=== PATIENT | female | born 1950 | race Caucasian/White ===

== ENCOUNTER 2017-06-13 12:58 | Inpatient (IN) | payer OTHER ==
[2017-06-13] MEDS: niCARdipine/NACL 200 ML IV SCH ×4 (15:00→22:36)
[2017-06-13] MEDS ORDERED: [UNRECOGNIZED DRUG - OTHER] TUBE SCH (15:00)
[2017-06-13] MEDS: NS 1,000 ML IV SCH (15:00)
[2017-06-13] MEDS ORDERED: ACETAMINOPHEN 160 MG/5 ML UDCUP PO PRN (16:06)
[2017-06-13] MEDS ORDERED: PROTOCOL MAGNESIUM 1 DOSE IV PRN (16:33)
[2017-06-13] MEDS ORDERED: PROTOCOL POTASSIUM 1 DOSE MISC PRN (16:33)
--- NOTE | 2017-06-13 17:09 | GHP ---
[f rep st] HISTORY AND PHYSICAL DATE OF ADMISSION: 06/13/2017 HISTORY OF PRESENT ILLNESS: The patient is a 67-year-old female, who woke up yesterday morning with a severe headache which did not resolve throughout the day. She presented to the [facility] [place] [facility] last night with continued complaint of headache as well as vital signs with maikel re hypertension with blood pressures of 222/112 measured. She was neurologically intact at the time, and head CT in the ED revealed a 2 mm anterior communicating artery aneurysm, which is thought to palacios ve caused basilar subarachnoid hemorrhage. 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 She was admitted to the neurosurgery t ea at [facility] where she endured the night. Over the evening, her exam declined somewhat. S he remains alert, but she is nominally verbal, only answering small questions and not able to provide a complete H and P. She was transferred to the [facility] for anticipated treatment of her aneurysm by Dr. Curry tomorrow. Additional information is provided by patient's chart review as patient is unable to fully communicate her history of present illness. PAST MEDICAL HISTORY: Includes history of hypothyroidism. PAST SURGICAL HISTORY: Includes history of hysterectomy. FAMILY HISTORY: Includes breast cancer in the mother. SOCIAL HISTORY: Patient is an everyday smoker, and she occasionally drinks alcohol. She has no [address] of illicit drug use. REVIEW OF SYSTEMS: Patient is minimally verbal and unable to elaborate on her current condition. Sh e is not complaining of headache or pain at the current time. ALLERGIES: She has no known drug allergies. MEDICATIONS: Include amitriptyline 50 mg and Synthroid 100 mcg daily. NEUROLOGICAL EXAM: Patient is alert and oriented to self and place. Her speech is minimal but clear , consisting of 1-5 word phrases. Her pupils are equal and reactive to light. Her extraocular movem ents appear intact. Her palate rise is symmetric. Her smile is symmetric. She has no apparent faci al droop. Her cranial nerves 2-12 appear grossly intact. She moves all extremities x4. She does no t have any apparent pronator drift, and her strength appears full and equal, right to left. Her sens ation is intact to light touch, and she continues to follow commands. Overall, her GCS is currently 15. 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 On CT, she also has enlarged ventricl es indicative of a question of hydrocephalus, but she does not appear symptomatic from that at this t clay. She is currently alert and oriented to place. She does have some mild confusion and does not s peak clearly, but her exam has remained stable throughout the day. We have transferred her from [facility] the [facility] to the extended care unit with q.1 hour neuro checks, strict blood pressure control of less than 130. Nicardipine has been ordered. She is also taking Nimotop for vasospasms 60 mg every 4 hours. She has Keppra on board. She is currently n.p.o. with fluids running. We will plan for Dr. Curry to clip the aneurysm tomorrow in the a.m. The patient was discussed with Dr. Chris Hamlin, Dr. Curry, as well as Jessie Bautista upon transfer. Please contact us with any ogden iona in neurological exam. /[id number]/MODL
[2017-06-13] MEDS: niMODipine 30 MG CAP PO SCH ×2 (18:17→22:25)
[2017-06-13] MEDS: POTASSIUM Cl (KCl) 10 MEQ in NS 100 ML IV SCH ×3 (20:08→21:46)
[2017-06-13] MEDS: levETIRAcetam 750 MG in NS (SYRINGE) 50 ML IV SCH (21:09)
[2017-06-13] MEDS: SENNOSIDES/DOCUSATE SODIUM TAB PO SCH (22:30)
[2017-06-14] MEDS: niCARdipine/NACL 200 ML IV SCH ×4 (01:26→14:00)
[2017-06-14] MEDS: niMODipine 30 MG CAP PO SCH ×6 (01:27→22:10)
[2017-06-14] MEDS ORDERED: POTASSIUM Cl (KCl) 50 ML IV ONE ×2 (01:45→20:49)
[2017-06-14] MEDS ORDERED: POTASSIUM Cl (KCl) 100 ML IV ONE (02:45)
--- NOTE | 2017-06-14 06:44 | PDANEPAE ---
ANE History of Present Illness h/o SAH ANE Past Medical History - Cardiovascular History Hx Hypertension: No Hx Arrhythmias: No Hx Chest Pain: No Hx Coronary Artery / Peripheral Vascular Disease: No Hx CHF / Valvular Disease: No Hx Palpitations: No - Pulmonary History Hx COPD: No Hx Asthma/Reactive Airway Disease: No Hx Recent Upper Respiratory Infection: No Hx Oxygen in Use at Home: No Hx Sleep Apnea: No - Endocrine History Hx Diabetes: No Hypothyroid: Yes - Neurological & Psychiatric Hx Hx Neurological and Psychiatric Disorders: Yes - Chronic Pain History Chronic Pain: No ANE Review of Systems Review of systems is: negative Review of Systems: - Exercise capacity Exercise capacity: >=4 METS ANE Patient History - Allergies Allergies/Adverse Reactions: No Allergies [NKDA] Allergy (Verified 06/13/17 13:35) - Home Medications Home medications: home medication list seen and reviewed Home Medications: Amitriptyline HCl [Elavil 100 MG (*)] 100 mg PO HS 06/13/17 [Last Taken Unknown] Hydrocodone/APAP 5/325 [[place] 5/325 (*)] 1 each PO Q4HRS PRN 06/13/17 [Last Taken Unknown] Levothyroxine [Synthroid 112 mcg (*)] 112 mcg PO DAILY06 06/13/17 [Last Taken Unknown] - Anes Hx Anes Hx: no prior problems - Smoking Hx Smoking Status: Current every day smoker ANE Labs/Vital Signs - Labs Result Diagrams: 06/14/17 05:30 - Vital Signs Blood Pressure: 116/56 Heart Rate: 78 Respiratory Rate: 22 O2 Sat (%): 90 Height: 167.64 cm Weight: 50.802 kg ANE Physical Exam - Airway Neck exam: FROM Mallampati Score: Class 1 Mouth exam: normal dental/mouth exam - Pulmonary Pulmonary: no respiratory distress - Cardiovascular Cardiovascular: regular rate and rhythym - ASA Status ASA Status: III ANE Anesthesia Plan Anesthesia Plan: general endotracheal anesthesia Lines/Monitors: arterial line
[2017-06-14] MEDS ORDERED: LIDOCAINE 2% 100 MG/5 ML SYR ONE (07:15)
[2017-06-14] MEDS ORDERED: PROPOFOL 200 MG/20 ML VIAL ONE (07:16)
[2017-06-14] MEDS ORDERED: fentaNYL 250 MCG/5 ML INJ ONE (07:16)
[2017-06-14] MEDS ORDERED: ROCURONIUM 50 MG/5 ML VIAL ONE (07:18)
--- NOTE | 2017-06-14 07:19 | SOAPPROG ---
SAQIB Progress Note Assessment/Plan: Assessment: Post Bleed Day 2 s/p rupture of presumed Acomm aneurysm, HH2, F3 Plan: - to IR today for cerebral angiogram and coil embolization - I spoke to the family extensively about the procedure and the risks and benefits, including the risks of femoral artery injury, dissection, stroke, intra-operative aneurysm rupture, and . They agree to proceed. - Keppra 750 BID - Nimodipine 60mg q4h - SBP <130 for now, will liberalize after treatment - TCDs -- - will monitor for hydrocephalus. Ventricles are large, although she only has a mild headache this morning. Her family says she has had some cognitive and memory issues for the past year. 06/14/17 07:15 Subjective: no new events, c/o mild headache only Objective: Vital Signs Temp Pulse Resp BP Pulse Ox 37.5 C 78 22 H 116/56 L 90 L 06/13/17 16:00 06/14/17 06:44 06/14/17 06:44 06/14/17 06:44 06/14/17 06:44 Laboratory Results 06/14/17 05:30 06/13/17 06/14/17 06/15/17 05:59 05:59 05:59 Intake Total 526 Output Total 750 Balance -224 AAOx3, PERRL, EOMI, face symmetric full strength, no drift, sensation intact - Pending Discharge Pending Discharge Within 24 Hours: No Pending Discharge Within 48 Hours: No ICD10 Worksheet Patient Problems: Problems Problem Status Onset Subarachnoid hemorrhage Acute - ICD10 Problem Qualifiers (1) Subarachnoid hemorrhage
[2017-06-14] MEDS ORDERED: LIDOCAINE 2% 5 ML SDV ONE (07:28)
[2017-06-14] MEDS ORDERED: IOPAMIDOL (ISOVUE-300) 100 ML BTL ONE (08:12)
[2017-06-14] MEDS ORDERED: DEXAMETHASONE 4 MG/ML VIAL ONE (08:24)
--- NOTE | 2017-06-14 08:57 | POSTANESTH ---
Post Anesthetic Evaluation Cardiovascular Status: Normal, Stable Respiratory Status: Normal, Stable Level of Consciousness/Mental Status: Can Participate in Eval Pain Control: Adequate, Prn Tx Ordered Nausea/Vomiting Control: Adequate, Prn Tx Ordered Complications Possibly Related to Anesthesia: None Noted
--- NOTE | 2017-06-14 09:36 | PDMN ---
Medical Necessity Medical necessity: Patient meets inpatient criteria per PA/physician notes and [facility] Stroke: Hemorrhagic vs Neurosurgery or Procedure GRG (s/p rupture of anterior communicating aneurysm resulting in basilar SAH, also proximal R ICA aneurysm; transferred from [facility] for cerebral angiogram and coil embolization of same; anticipated LOS > 2 midnights for care and treatment of hypertension/ nicardipine IV gtt and hourly neuro checks, clipping of aneurysm.)
[2017-06-14] MEDS ORDERED: HYDROCODONE/APAP 5/325 TAB PO PRN (09:37)
[2017-06-14] MEDS ORDERED: ACETAMINOPHEN 500 MG TAB PO PRN (09:37)
[2017-06-14] MEDS ORDERED: PROMETHAZINE HCL 25 MG/ML INJ IVP PRN (09:37)
[2017-06-14] MEDS ORDERED: oxyCODONE IR 5 MG TAB PO PRN (09:37)
[2017-06-14] MEDS ORDERED: ONDANSETRON 4 MG/2 ML VIAL IVP PRN (09:37)
[2017-06-14] MEDS ORDERED: HYDROmorphONE/DILAUDID 1 MG/ML INJ IVP PRN (09:37)
[2017-06-14] MEDS ORDERED: LABETALOL HCL 5 MG/ML 20 ML MDV IVP PRN (09:37)
[2017-06-14] MEDS ORDERED: NALOXONE HCL 0.4 MG/ML INJ IVP PRN (09:37)
[2017-06-14] MEDS ORDERED: fentaNYL 100 MCG/2 ML INJ IVP PRN (09:37)
[2017-06-14] MEDS ORDERED: ALBUTEROL 3 ML DEYVIAL IH PRN (09:37)
[2017-06-14] MEDS ORDERED: NS 500 ML IV PRN (09:37)
--- NOTE | 2017-06-14 10:04 | ASMTCASEMG ---
Living Arrangements What is your living Answers: Alone arrangement? Who do you live with? Type Of Residence What kind of residence do Answers: Homeless you live in? Discharge Plan Comments Coordination Status Comments Notes: Patient is a 67yo female who woke up with a severe headache on the and sought treatment with [facility]. She was transferred to [facility] for anticipated treatment of her aneurysm by Dr. Curry. Patient was admitted for rupture of an anterior communicating artery aneurysm resulting in basilar subarachnoid hemorrhage. Dr Curry to clip the aneurysm today. Patient was unable to communicate when she arrived so living circumstances and marital status not known at this time. OT/PT/COMMISSARY HELPER/Inpatient rehab have been ordered. D/C plan TBD. CM will follow. Date Signed: 06/14/2017 10:04 AM Electronically Signed By:Brittany Wong LCSW
[2017-06-14] MEDS ORDERED: LIDOCAINE 1% 300 MG/30 ML SDV ONE (10:40)
[2017-06-14] MEDS: levETIRAcetam 750 MG in NS (SYRINGE) 50 ML IV SCH ×2 (11:44→22:29)
[2017-06-14] MEDS: SENNOSIDES/DOCUSATE SODIUM TAB PO SCH ×2 (12:24→22:12)
--- NOTE | 2017-06-14 13:47 | GCON ---
[f rep st] CONSULTATION DATE OF CONSULTATION: 06/13/2017 REFERRING PHYSICIAN: Henrik Curry MD PULMONARY/CRITICAL CARE CONSULTATION REASON FOR REFERRAL: Evaluation and management of hypokalemia and blood pressure. HISTORY: The patient is a 67-year-old woman who woke up yesterday with severe headache that did not resolve through the day. She presented to [facility] where she had severe hypertension with a blood pressure of 222/112. A CT scan of the head showed a small communicating artery aneurysm and some basilar subarachnoid hemorrhage. She also had a 3 mm aneurysm in the right internal carotid artery. She was admitted to Neurosurgery, who transferred to [facility] for treatment of her aneurysm by Dr. Curry. The patient is minimally communicative. She currently denies headache. PAST MEDICAL HISTORY: Hypothyroidism. MEDICATIONS: At the time of admission include amitriptyline and Synthroid. She is on nicardipine and Keppra here in the hospital. ALLERGIES: None. SOCIAL HISTORY: The patient is a heavy daily smoker, about a pack and a half a day for many years. S he occasionally drinks alcohol. FAMILY HISTORY: Positive for breast cancer in her mother. REVIEW OF SYSTEMS: Ten point review of systems is unobtainable due to the patient's mental status. PHYSICAL EXAMINATION: GENERAL: The patient is awake and alert but not reliably answering questions. VITAL SIGNS: Her blood pressure is 125/38 with a heart rate of 90. She is afebrile. Oxygen saturation s are 94% on room air. HEENT: Normocephalic and atraumatic. No icterus. NECK: No JVD. Trachea is midl ine. CHEST: Clear to auscultation. CARDIAC: Regular rate and rhythm without murmur. ABDOMEN: Soft, no ntender. Bowel sounds are present. EXTREMITIES: No clubbing, cyanosis, or edema. NEURO: The patient i s oriented to self. She is able to follow some simple commands but does not do so reliably and consis tently. She is able to move all extremities. LABORATORY: A chemistry group shows a potassium of 3.2 with a creatinine of 0.5. Glucose is 112. ASSESSMENT: 1. Subarachnoid hemorrhage. This is apparently due to a small posterior communicating artery aneurys m. The patient is awake and alert but is not at her normal baseline status per her . 2. Hypertension. The patient had severe hypertension upon initial presentation. Her blood pressure i s better now on nicardipine drip that is being titrated p.r.n. 3. Hypokalemia. This is mild. The patient is not having any arrhythmias. RECOMMENDATIONS: 1. Continue nicardipine drip. 2. Replace potassium. 3. Anticipate catheter based approach to the small posterior communicating aneurysm by Dr. Patricio devlin. /[id number]/MODL
[2017-06-14] MEDS: NS 1,000 ML IV SCH (14:02)
--- NOTE | 2017-06-14 14:36 | PDINTPN ---
Synchronizer Progress Note Assessment/Plan: Assessment: SAH: S/P clipping earlier today. On Nimodipine, Keppra HTN: Acutely. Currently BP is in the range set by Dr. Curry Agitation/Delerium: Is pulling at lines. Hypokalemia: Resolved. Plan: D/C A-line. Start Precedex gtt. 06/14/17 14:36 Subjective: Agitated, pulling at lines. Has a headache. Objective: Vital Signs Temp Pulse Resp BP Pulse Ox 36.6 C 90 15 138/63 H 91 L 06/14/17 12:00 06/14/17 14:00 06/14/17 14:00 06/14/17 14:00 06/14/17 14:00 Laboratory Results 06/14/17 11:45 06/13/17 06/14/17 06/15/17 05:59 05:59 05:59 Intake Total 526 Output Total 750 Balance -224 Physical Exam - Physical Exam General Appearance: alert, no apparent distress EENT: normal ENT inspection Neck: normal inspection Respiratory: chest non-tender, lungs clear Cardiac/Chest: normal peripheral pulses, regular rate, rhythm Abdomen: normal bowel sounds, non-tender Skin: normal color, warm/dry Extremities: non-tender Neuro/Psych: alert, normal mood/affect, No oriented x 3, No motor weakness ICD10 Worksheet Patient Problems: Problems Problem Status Onset Subarachnoid hemorrhage Acute
[2017-06-14] MEDS: DEXMEDETOMIDINE HCL 400 MCG in NS 100 ML IV SCH (15:00)
[2017-06-14] MEDS ORDERED: ALTEPLASE 2 MG VIAL IVP ONE (17:45)
[2017-06-14] MEDS: ACETAMINOPHEN 650 MG/20.3 ML UDCUP PO PRN (22:11)
[2017-06-15] MEDS: ACETAMINOPHEN 650 MG/20.3 ML UDCUP PO PRN ×5 (01:49→21:53)
[2017-06-15] MEDS: niMODipine 30 MG CAP PO SCH ×6 (01:49→21:53)
[2017-06-15] MEDS: DEXMEDETOMIDINE HCL 400 MCG in NS 100 ML IV SCH (01:59)
[2017-06-15] MEDS ORDERED: POTASSIUM Cl (KCl) 50 ML IV ONE ×3 (02:02→21:10)
[2017-06-15] MEDS: NS 1,000 ML IV SCH ×2 (05:48→21:14)
--- NOTE | 2017-06-15 06:25 | NEUSURGPN ---
Date of Surgery: 06/14/17 Post Op Day: 1 Assessment/Plan: Assessment: Post Bleed Day 3 s/p rupture of presumed Acomm aneurysm, HH2, F3- POD #1 s/p ACOMM coiling/pt with right ICA aneurysm as well Plan: -to IR 06/14/17 for cerebral angiogram and coil embolization -PT/OT/ST ordered -continue with SBP less than 90-160 -monitor for HCP -CT head done this am that will be reviewed with Dr Curry as no comparison films in [facility] PACS and will have to pull up [facility] PACS to compare-Dr Curry reviewed imaging this am and appears the same-family updated -Keppra 750 BID -Nimodipine 60mg q4h -TCDs -will monitor for hydrocephalus. Ventricles are large, although she only has a mild headache this morning. Her family says she has had some cognitive and memory issues for the past year -call with any questions or concerns -warning signs given -continue with ICU status Subjective: Awake and alert. NAD. No new events overnight. Objective: AAOx3, PERRL, EOMI, face symmetric CN 2-12 grossly intact full strength, no drift, sensation intact Neuro Check Frequency: per routine Urinary Catheter in Place: No - Physician Discussed Patient with : Patricio Patient Seen by : Patricio Neurosurgery Physical Exam - Vitals, I&O, Labs I and O 06/14/17 06/15/17 06/16/17 05:59 05:59 05:59 Intake Total 526 3977.5 Output Total 750 1700 Balance -224 2277.5 Weight 50.802 kg 50.802 kg Intake: Oral (ml) 120 IV Infused (ml) 526 3857.5 Dexmedetomidine HCl 400 89.3 mcg In Ns 100 ml @ Titrate IV CONT ELVIA Rx#: [id number] Ns 1,000 ml @ 75 mls/hr 247 2529 IV .CONT ELVIA Rx#: [id number] niCARdipine/NACL 200 ml @ 279 1239.2 Titrate IV CONT ELVIA Rx#: [id number] Output: Urine (ml) 750 1700 Catheter 750 1700 Other: Number of Stools Catheter 0 Vital Signs Temp Pulse Resp BP Pulse Ox 36.6 C 66 13 104/62 99 06/15/17 04:00 06/15/17 06:00 06/15/17 06:00 06/15/17 06:00 06/15/17 06:00 ICD10 Worksheet Patient Problems: Problems Problem Status Onset Subarachnoid hemorrhage Acute
[2017-06-15] MEDS ORDERED: MAGNESIUM SULF 1 GM/DEXTROSE 100 ML IV ONE (07:33)
[2017-06-15] MEDS: levETIRAcetam 750 MG in NS (SYRINGE) 50 ML IV SCH ×2 (10:20→20:28)
--- NOTE | 2017-06-15 12:34 | PDINTPN ---
School Bus Operator Progress Note Assessment/Plan: Assessment: SAH: S/P clipping. On Nimodipine, Keppra HTN: Acutely at presentation/admission. Currently BP is in the range set by Dr. Curry without intervention Agitation/Delirium: Improved. On low-dose Precedex. Morphine PRN. Hypokalemia: Resolved. Plan: Dr. Curry to see, ? lumbar drain. Follow BP, K+. 06/15/17 12:34 Subjective: C/O NUÑEZ. Less agitated. Objective: Vital Signs Temp Pulse Resp BP Pulse Ox 36.6 C 68 13 128/71 H 93 06/15/17 04:00 06/15/17 10:00 06/15/17 10:00 06/15/17 10:00 06/15/17 10:00 06/14/17 06/15/17 06/16/17 05:59 05:59 05:59 Intake Total 526 3977.5 Output Total 750 1700 Balance -224 2277.5 CTH: Moderate enlargement of lateral ventricles. Images reviewed by me. Physical Exam - Physical Exam General Appearance: alert (sonolent but arousable), no apparent distress EENT: normal ENT inspection Neck: normal inspection Respiratory: normal breath sounds Cardiac/Chest: regular rate, rhythm, No edema Abdomen: normal bowel sounds, non-tender Skin: normal color, warm/dry Neuro/Psych: No alert, No normal mood/affect, No oriented x 3, No motor weakness ICD10 Worksheet Patient Problems: Problems Problem Status Onset Subarachnoid hemorrhage Acute
[2017-06-15] MEDS: SENNOSIDES/DOCUSATE SODIUM TAB PO SCH ×2 (13:02→21:52)
[2017-06-15] MEDS: POTASSIUM Cl (KCl) 10 MEQ in NS 100 ML IV SCH ×3 (13:29→15:08)
[2017-06-15] MEDS: niCARdipine/NACL 200 ML IV SCH (14:27)
[2017-06-15] MEDS ORDERED: KETOROLAC 15 MG/1 ML SDV ONE (17:54)
[2017-06-15] MEDS: KETOROLAC 15 MG/1 ML SDV IVP SCH (18:44)
[2017-06-15] MEDS: QUEtiapine FUMARATE 25 MG TAB PO PRN (21:53)
[2017-06-16] MEDS: ACETAMINOPHEN 650 MG/20.3 ML UDCUP PO PRN ×3 (01:30→11:13)
[2017-06-16] MEDS: niMODipine 30 MG CAP PO SCH ×6 (01:30→22:00)
[2017-06-16] MEDS: KETOROLAC 15 MG/1 ML SDV IVP SCH ×4 (01:31→17:47)
[2017-06-16] MEDS ORDERED: POTASSIUM Cl (KCl) 50 ML IV ONE (05:00)
[2017-06-16] MEDS ORDERED: POTASSIUM Cl (KCl) 100 ML IV ONE ×2 (06:00→12:45)
--- NOTE | 2017-06-16 06:32 | NEUSURGPN ---
Date of Surgery: 06/14/17 Post Op Day: 2 Assessment/Plan: Assessment: Post Bleed Day #4 s/p rupture of presumed Acomm aneurysm, HH2, F3- POD #2 s/p ACOMM coiling/pt with right ICA aneurysm as well Plan: -to IR 06/14/17 for cerebral angiogram and coil embolization-tolerated fine -PT/OT/ST-CPM -continue with SBP range 90-160 -monitor for HCP -no LD needed at this time -CT head done yesterday that will be reviewed with Dr Curry as no comparison films in [facility] PACS-Dr Curry reviewed imaging this am and appears the same-family updated -Keppra 750 BID -Nimodipine 60mg q4h -TCDs -will monitor for hydrocephalus. Ventricles are large, although she only has a mild headache this morning. Her family says she has had some cognitive and memory issues for the past year -call with any questions or concerns -warning signs given -continue with ICU status to monitor for vasospasm/hydrocephalus as well Subjective: Awake and alert. More alert than yesterday. No neck/chest/abd or gu complaints. No NUÑEZ Objective: AAO, PERRLA, EOMI, face symmetric CN 2-12 grossly intact full strength, no drift, sensation intact Neuro Check Frequency: per routine Urinary Catheter in Place: No - Physician Discussed Patient with : Patricio Patient Seen by : Patricio Neurosurgery Physical Exam - Vitals, I&O, Labs I and O 06/15/17 06/16/17 06/17/17 05:59 05:59 05:59 Intake Total 3977.5 1564 Output Total 1700 1250 Balance 2277.5 314 Weight 50.802 kg Intake: Oral (ml) 120 300 IV Infused (ml) 3857.5 1264 Dexmedetomidine HCl 400 89.3 40 mcg In Ns 100 ml @ Titrate IV CONT ELVIA Rx#: [id number] Ns 1,000 ml @ 75 mls/hr 2529 1151 IV .CONT ELVIA Rx#: [id number] niCARdipine/NACL 200 ml @ 1239.2 73 Titrate IV CONT ELVIA Rx#: [id number] Output: Urine (ml) 1700 1250 Catheter 1700 1250 Other: Number of Stools Catheter 0 Vital Signs Temp Pulse Resp BP Pulse Ox 36.8 C 56 L 12 161/71 H 94 06/16/17 04:00 06/16/17 04:00 06/16/17 04:00 06/16/17 04:00 06/16/17 04:00 Laboratory Results 06/16/17 04:10 ICD10 Worksheet Patient Problems: Problems Problem Status Onset Subarachnoid hemorrhage Acute
[2017-06-16] MEDS: levETIRAcetam 750 MG in NS (SYRINGE) 50 ML IV SCH ×2 (10:01→20:15)
[2017-06-16] MEDS: SENNOSIDES/DOCUSATE SODIUM TAB PO SCH ×2 (10:01→20:15)
--- NOTE | 2017-06-16 11:47 | PDINTPN ---
Art Consultant Progress Note Assessment/Plan: Assessment: SAH: S/P clipping. On Nimodipine, Keppra HTN: Acutely at presentation/admission. Currently BP is in the range set by Dr. Curry, now on Nicardipine gtt Agitation/Delirium: Improved. On low-dose Precedex. Morphine PRN. Hypokalemia: Trending down again Nausea Plan: Zofran, Compazine for nausea. Replace K+. Continue Precedex for agitation, Nicardipine for HTN. 06/16/17 11:46 06/16/17 11:47 Subjective: Denies NUÑEZ. C/O nausea, "hurts all over". Objective: Vital Signs Temp Pulse Resp BP Pulse Ox 36.6 C 69 13 146/62 H 98 06/16/17 07:27 06/16/17 10:00 06/16/17 10:00 06/16/17 10:00 06/16/17 10:00 Laboratory Results 06/16/17 04:10 06/15/17 06/16/17 06/17/17 05:59 05:59 05:59 Intake Total 3977.5 2753.8 Output Total 1700 3100 450 Balance 2277.5 -346.2 -450 Physical Exam - Physical Exam General Appearance: alert, mild distress (nausea) EENT: normal ENT inspection Neck: normal inspection Respiratory: lungs clear, normal breath sounds Cardiac/Chest: regular rate, rhythm, No edema Abdomen: normal bowel sounds, non-tender Skin: normal color, warm/dry Extremities: normal inspection Neuro/Psych: alert, No normal mood/affect, No oriented x 3, No motor weakness ICD10 Worksheet Patient Problems: Problems Problem Status Onset Subarachnoid hemorrhage Acute
[2017-06-16] MEDS: DEXMEDETOMIDINE HCL 400 MCG in NS 100 ML IV SCH (12:04)
[2017-06-16] MEDS: ONDANSETRON 4 MG/2 ML VIAL IVP PRN (12:05)
[2017-06-16] MEDS ORDERED: POTASSIUM Cl (KCl) 50 ML IV SCH (12:34)
[2017-06-16] MEDS: POTASSIUM Cl (KCl) 10 MEQ in NS 100 ML IV SCH ×2 (12:41→13:56)
--- NOTE | 2017-06-16 15:38 | ASMTCMCOM ---
CM Note CM Note Notes: Patient and live [place] and would prefer going to [facility] location closer to their [place]. Referral sent. Date Signed: 06/16/2017 03:38 PM Electronically Signed By:Carmen Salinas LCSW
[2017-06-16] MEDS: POTASSIUM Cl (KCl) 40 MEQ in NS 1,000 ML IV SCH (15:41)
[2017-06-16] MEDS: QUEtiapine FUMARATE 25 MG TAB PO PRN (20:15)
[2017-06-16] MEDS: niCARdipine/NACL 200 ML IV SCH (20:55)
[2017-06-17] MEDS: niMODipine 30 MG CAP PO SCH ×6 (02:18→22:10)
--- NOTE | 2017-06-17 08:28 | NEUSURGPN ---
Assessment/Plan: Assessment/Plan: Assessment: Post Bleed Day #5 s/p rupture of presumed Acomm aneurysm, HH2, F3- POD #3 s/p ACOMM coiling/pt with right ICA aneurysm as well Plan: -Neuro: Stable but having problems with agitation and pulled out PICC line this morning. holding head this morning and grimacing, but non verbal. Please give scheduled Tylenol and prn Toradol for headaches instead of more Morphine as this can cause rebound headaches, and somnolence. Only give if other agents not working. -Continued problems with incontinence, will place Hickman back in -PT/OT/ST-CPM -continue with SBP range 90-160 -monitor for HCP -Will get repeat head CT this morning to continue monitoring for hydrocephalus. If ventricles are bigger, may consider placement of lumbar drain. -Keppra 750 BID -Nimodipine 60mg q4h -TCDs -- -call with any questions or concerns -warning signs given -continue with ICU status to monitor for vasospasm/hydrocephalus as well Subjective: Just had morphine so somnolent but per RN was awake and alert moving all extremities to command. Agitation increases with incontinence and pulled out PICC line this morning. Objective: NAD, Somnolent Grimacing, DUKES X4 PERRLA, EOMI, face symmetric - Physician Discussed Patient with : Patricio Patient Seen by : Patricio Neurosurgery Physical Exam - Vitals, I&O, Labs I and O 06/16/1718 06/18/17 05:59 05:59 05:59 Intake Total 2753.8 3164.8 Output Total 3100 1400 Balance -346.2 1764.8 Intake: Oral (ml) 540 720 IV Intake (ml) 500 IV Infused (ml) 2213.8 1944.8 Dexmedetomidine HCl 400 63.8 91.8 mcg In Ns 100 ml @ Titrate IV CONT ELVIA Rx#: [id number] Ns 1,000 ml @ 75 mls/hr 2077 1681 IV .CONT ELVIA Rx#: [id number] niCARdipine/NACL 200 ml @ 73 172 Titrate IV CONT ELVIA Rx#: [id number] Output: Urine (ml) 3100 1400 Bedside Commode 950 Catheter 3100 450 Other: Number of Voids Bedside Commode 2 Vital Signs Temp Pulse Resp BP Pulse Ox 37.6 C 69 8 L 178/71 H 92 06/17/17 06:00 06/17/17 08:00 06/17/17 08:00 06/17/17 08:00 06/17/17 08:00 Laboratory Results 06/17/17 05:35 ICD10 Worksheet Patient Problems: Problems Problem Status Onset Subarachnoid hemorrhage Acute
[2017-06-17] MEDS: levETIRAcetam 750 MG in NS (SYRINGE) 50 ML IV SCH ×2 (08:53→20:29)
[2017-06-17] MEDS ORDERED: MAGNESIUM SULF 2 GM/WATER 50 ML IV ONE (09:02)
[2017-06-17] MEDS: POTASSIUM Cl (KCl) 100 ML IV SCH ×4 (09:32→16:39)
[2017-06-17] MEDS: KETOROLAC 15 MG/1 ML SDV IVP PRN (09:59)
[2017-06-17] MEDS: SENNOSIDES/DOCUSATE SODIUM TAB PO SCH ×2 (10:51→20:31)
[2017-06-17] MEDS: ACETAMINOPHEN 650 MG/20.3 ML UDCUP PO SCH ×2 (13:00→17:30)
[2017-06-17] MEDS: DEXMEDETOMIDINE HCL 400 MCG in NS 100 ML IV SCH (13:16)
[2017-06-17] MEDS: niCARdipine/NACL 200 ML IV SCH (13:17)
--- NOTE | 2017-06-17 14:02 | PDINTPN ---
Pivot End Polisher Progress Note Assessment/Plan: Assessment: SAH Day 5: S/P coil embolization. On Nimodipine, Keppra. HTN: Acutely at presentation/admission. Blood pressure is controlled with a Nicardipine gtt. Agitation/Delirium: Improved. On low-dose Precedex. Morphine PRN. Hypokalemia: On replacement protocol Nausea: Resolved currently. Nutrition: None. NPO for now secondary to mental status Plan: Continue nicardipine for blood pressure, Precedex as needed for agitation.. Continue Zofran, Compazine for nausea. Replace K+, follow. Subjective: Lethargic, less restless on Precedex but more somnolent. Objective: Vital Signs Temp Pulse Resp BP Pulse Ox 37.3 C 69 9 L 119/69 92 06/17/17 10:13 06/17/17 12:00 06/17/17 12:00 06/17/17 12:00 06/17/17 12:00 Laboratory Results 06/17/17 05:35 06/16/17 06/17/17 06/18/17 05:59 05:59 05:59 Intake Total 2753.8 3164.8 Output Total 3100 1400 Balance -346.2 1764.8 Physical Exam - Physical Exam General Appearance: thin, other (Somnolent, when off of Precedex she is able to respond verbally and appropriately to simple questions) EENT: PERRL/EOMI Neck: supple (No JVD) Respiratory: lungs clear Cardiac/Chest: regular rate, rhythm Abdomen: normal bowel sounds, non-tender, soft Skin: normal color, warm/dry Extremities: No pedal edema Neuro/Psych: no motor/sensory deficits (Moves all extremities), cognition abnormalities (Mental status decreased, somnolent, secondary to affects of the SAH and to medications/Precedex.) ICD10 Worksheet Patient Problems: Problems Problem Status Onset Subarachnoid hemorrhage Acute
--- NOTE | 2017-06-17 17:03 | GPN ---
[f rep st] PROCEDURE NOTE /[id number]/MODL MTDD
--- NOTE | 2017-06-17 17:08 | GPN ---
[f rep st] PROCEDURE NOTE DATE OF PROCEDURE: 06/17/2017 PROCEDURE PERFORMED: Central line placement. REASON FOR PROCEDURE: Central access in a patient requiring continuous intravenous medications following subarachnoid hemorrhage. PROCEDURE NOTE: The procedure was performed in the patient's room in the intensive care unit. Informed consent was obtained from the patient's over the phone. Appropriate time-out was performed. Chlorhexidine was used to sterilize the skin. 1% lidocaine was used for local anesthesia. After appropriate 1% lidocaine, the triple-lumen needle was placed under the clavicle and into the subclavian vein. A guidewire was threaded and a triple- lumen catheter placed over this. The line was sutured in place. There was good blood flow return from all 3 ports. Some persistent oozing was present. CXR showed the line to be in an unusual position across the midline at the level of the aortic arch, probably due to an arterial canulation The line was removed and pressure applied to prevent bleeding. A pressure dressing was then applied. EBL aprox 10 mls. A: Unsuccessful central line placement. /[id number]/MODL MTDD
[2017-06-17] MEDS: POTASSIUM Cl (KCl) 40 MEQ in NS 1,000 ML IV SCH (20:31)
[2017-06-18] MEDS: ACETAMINOPHEN 650 MG/20.3 ML UDCUP PO SCH ×5 (01:45→23:21)
[2017-06-18] MEDS: niMODipine 30 MG CAP PO SCH ×6 (01:49→20:47)
[2017-06-18] MEDS: KETOROLAC 15 MG/1 ML SDV IVP PRN ×3 (01:55→23:21)
[2017-06-18] MEDS: DEXMEDETOMIDINE HCL 400 MCG in NS 100 ML IV SCH ×2 (02:01→18:44)
[2017-06-18 05:16] LABS: PLATELET COUNT 186 10^3/uL (150-400)
[2017-06-18] MEDS ORDERED: MAGNESIUM SULF 1 GM/DEXTROSE 100 ML IV ONE (07:41)
[2017-06-18] MEDS ORDERED: POTASSIUM Cl (KCl) 50 ML IV ONE ×2 (07:41→22:24)
--- NOTE | 2017-06-18 08:56 | NEUSURGPN ---
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 May consider placement of lumbar drain, if indicated -Continue Keppra 750 BID -Continue Nimodipine 60mg q4h -TCDs -call with any questions or concerns -warning signs given -continue with ICU status to monitor for vasospasm/hydrocephalus -Discussed with Dr. Curry Subjective: Does not report pain Objective: NAD, sleepy but easily aroused and recently per aid, had full awakeful period. PERRLA Follows commands. A&O to self only. catheter site soft/clean. - Physician Discussed Patient with Dr.: Curry Neurosurgery Physical Exam - Vitals, I&O, Labs I and O 06/17/17 06/18/17 06/19/17 05:59 05:59 05:59 Intake Total 3164.8 2243 Output Total 1400 2125 Balance 1764.8 118 Intake: Oral (ml) 720 120 IV Intake (ml) 500 1085 IV Infused (ml) 1944.8 1038 Dexmedetomidine HCl 400 91.8 133 mcg In Ns 100 ml @ Titrate IV CONT ELVIA Rx#: [id number] Ns 1,000 ml @ 75 mls/hr 1681 IV .CONT ELVIA Rx#: [id number] POTASSIUM Cl (KCl) 40 meq 875 In Ns 1,000 ml @ 75 mls/ hr IV CONT ELVIA Rx#: [id number] niCARdipine/NACL 200 ml @ 172 30 Titrate IV CONT ELVIA Rx#: [id number] Output: Urine (ml) 1400 2125 Bedside Commode 950 Catheter 450 2125 Other: Number of Voids Bedside Commode 2 Vital Signs Temp Pulse Resp BP Pulse Ox 36.6 C 65 12 153/75 H 95 06/18/17 08:00 06/18/17 08:00 06/18/17 08:00 06/18/17 08:00 06/18/17 08:00 Laboratory Results 06/18/17 04:48 06/18/17 04:48 ICD10 Worksheet Patient Problems: Problems Problem Status Onset Subarachnoid hemorrhage Acute
[2017-06-18] MEDS: SENNOSIDES/DOCUSATE SODIUM TAB PO SCH ×2 (10:21→20:47)
[2017-06-18] MEDS: POTASSIUM Cl (KCl) 40 MEQ in NS 1,000 ML IV SCH ×2 (10:21→22:48)
[2017-06-18] MEDS: levETIRAcetam 750 MG in NS (SYRINGE) 50 ML IV SCH (10:21)
[2017-06-18] MEDS ORDERED: BISACODYL 10 MG SUPP PR PRN (11:36)
[2017-06-18] MEDS: niCARdipine/NACL 200 ML IV SCH (13:48)
--- NOTE | 2017-06-18 15:32 | WOCRNPDOC ---
JEF Advanced Assessment Note - Skin Integrity Problem, Advanced Assess Right Distal First Toe Dressing Type: Open to Air Wound Bed Color: Purple Pulse Location & Description: +1 DP pulse Extremity Temperature: Cool Skin Integrity Problem Comment: Request to assess R great toe for ischemic injury. Presently toe is purple at the very distal aspect, mottled in appearance. This could be indicative of arterial insufficiency, though I was able to palpate DP pulse. Skin presently intact, but there are changes to both the nail and the overlying skin that suggest this is a long-standing problem. Advised target setter Jenny to mention this to hospitalist, further blood flow studies needed to assess. Wound care does not need to be involved at this time.
--- NOTE | 2017-06-18 16:10 | ASMTCMCOM ---
CM Note CM Note Notes: Referral updates made. Patient continues to be confused. Date Signed: 06/18/2017 04:09 PM Electronically Signed By:Carmen Salinas LCSW
--- NOTE | 2017-06-18 17:56 | PDINTPN ---
Caster Operator Progress Note Assessment/Plan: Assessment: SAH Day 6: S/P coil embolization. On Nimodipine, Keppra. HTN: Acutely elevated on presentation/admission. Blood pressure is controlled with a Nicardipine gtt. Agitation/Delirium: Improved. Off Precedex. Morphine PRN for pain but not requiring this presently. Hypokalemia: On replacement protocol Nausea: Resolved currently. Nutrition: Cleared for a dysphagia 2 diet. Plan: Continue nicardipine for blood pressure as needed. Precedex as needed for agitation. Continue Zofran, Compazine for nausea. Replace K+, follow laboratory in neurologic status. Will discuss allowing blood pressure to come up in light of potential for vaso spasm. 25 min of critical care time spent directly with the patient. Discussed issues with the patient's , nursing, the ICU multi disciplinary team. 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 Denies significant headache Objective: Vital Signs Temp Pulse Resp BP Pulse Ox 36.8 C 79 16 132/85 H 100 06/18/17 16:00 06/18/17 16:00 06/18/17 16:00 06/18/17 16:00 06/18/17 16:00 Laboratory Results 06/18/17 04:48 06/18/17 14:38 06/17/17 06/18/17 06/19/17 05:59 05:59 05:59 Intake Total 3164.8 2243 300 Output Total 1400 2125 Balance 1764.8 118 300 Laboratory Tests 06/18/17 04:48 Sodium 135 Potassium 3.8 Chloride 106 Carbon Dioxide 24 BUN 5 L Creatinine 0.4 L Glucose 104 H Calcium 7.9 L Magnesium 1.7 Physical Exam - Physical Exam General Appearance: alert, no apparent distress, thin, other (Restless, moving about in bed) EENT: PERRL/EOMI, other (On room air) Neck: normal inspection (No JVD) Respiratory: lungs clear Cardiac/Chest: regular rate, rhythm Abdomen: normal bowel sounds, non-tender, soft Pelvic Exam: other (Hickman catheter in place, good urine output) Skin: normal color, warm/dry Extremities: No pedal edema Neuro/Psych: no motor/sensory deficits (Moves all extremities equally in bed. Not ambulated), cognition abnormalities (Improved comma bolt man today, more responsive but quite confused.) ICD10 Worksheet Patient Problems: Problems Problem Status Onset Subarachnoid hemorrhage Acute
[2017-06-18] MEDS: levETIRAcetam 250 MG TAB PO SCH (20:47)
[2017-06-18] MEDS ORDERED: POTASSIUM Cl (KCl) 20 MEQ in D5W 50 ML IV ONE (22:30)
[2017-06-19] MEDS: QUEtiapine FUMARATE 25 MG TAB PO PRN (01:02)
[2017-06-19] MEDS: niMODipine 30 MG CAP PO SCH ×6 (01:02→21:44)
[2017-06-19] MEDS: ACETAMINOPHEN 650 MG/20.3 ML UDCUP PO SCH ×3 (05:31→18:22)
--- NOTE | 2017-06-19 08:24 | NEUSURGPN ---
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 Curry Subjective: Patient complaining of headache Objective: Oriented to self PERRLA CN 2-12 grossly intact Follows commands 5/5 BUE, BLE Neuro Check Frequency: per routine Urinary Catheter in Place: Yes Urinary Catheter Indication: Neurogenic Bladder - Physician Discussed Patient with Dr.: Curry Neurosurgery Physical Exam - Vitals, I&O, Labs I and O 06/18/17 06/19/17 06/20/17 05:59 05:59 05:59 Intake Total 2243 2770 Output Total 2125 2500 Balance 118 270 Intake: Oral (ml) 120 1020 IV Intake (ml) 1085 889 IV Infused (ml) 1038 861 Dexmedetomidine HCl 400 133 123 mcg In Ns 100 ml @ Titrate IV CONT ELVIA Rx#: [id number] POTASSIUM Cl (KCl) 40 meq 875 691 In Ns 1,000 ml @ 75 mls/ hr IV CONT ELVIA Rx#: [id number] niCARdipine/NACL 200 ml @ 30 47 Titrate IV CONT ELVIA Rx#: [id number] Output: Urine (ml) 2125 2500 Catheter 2125 2500 Vital Signs Temp Pulse Resp BP Pulse Ox 36.3 C 56 L 13 150/75 H 97 06/19/17 00:00 06/19/17 06:00 06/19/17 06:00 06/19/17 06:00 06/19/17 06:00 Laboratory Results 06/18/17 04:48 06/19/17 04:45 ICD10 Worksheet Patient Problems: Problems Problem Status Onset Subarachnoid hemorrhage Acute
[2017-06-19] MEDS ORDERED: MAGNESIUM SULF 1 GM/DEXTROSE 100 ML IV ONE (09:27)
[2017-06-19] MEDS: SENNOSIDES/DOCUSATE SODIUM TAB PO SCH ×3 (09:31→22:06)
[2017-06-19] MEDS: levETIRAcetam 250 MG TAB PO SCH ×2 (09:31→21:43)
[2017-06-19] MEDS ORDERED: BISACODYL 10 MG SUPP PR PRN (10:19)
[2017-06-19] MEDS ORDERED: LACTULOSE 20 GM/30 ML UDCUP PO PRN (10:19)
[2017-06-19] MEDS ORDERED: MAGNESIUM HYDROXIDE 30 ML UDCUP PO PRN (10:19)
--- NOTE | 2017-06-19 11:20 | PDINTPN ---
Clinical Informatics Specialist Progress Note Assessment/Plan: Assessment: SAH Day 7: S/P coil embolization. On Nimodipine, Keppra. No evidence of spasm today by transcranial Doppler. HTN: Acutely elevated on presentation/admission. Blood pressure has been controlled with a Nicardipine gtt as needed, currently off. Controlling pressure if over 180. Agitation/Delirium: Improved. Off Precedex. Morphine PRN for pain but not requiring this presently. Hypokalemia: On replacement protocol Nausea: Resolved currently. Nutrition: Cleared for a dysphagia 2 diet. Plan: Continue nicardipine for blood pressure as needed. Precedex as needed for agitation. Continue Zofran, Compazine for nausea as needed. Replace K+, follow laboratory and neurologic status. Will allow lower limit of systolic blood pressure to come up in light of potential for vaso spasm. 30 min of critical care time spent directly with the patient. Discussed issues with the patient's , nursing, NS, the ICU multi disciplinary team. Subjective: Confused. Denies significant headache. Oriented to person and hospital in [place] Objective: Vital Signs Temp Pulse Resp BP Pulse Ox 37.0 C 83 17 131/66 H 100 06/19/17 08:00 06/19/17 10:00 06/19/17 10:00 06/19/17 10:00 06/19/17 10:00 Laboratory Results 06/18/17 04:48 06/19/17 04:45 06/18/17 06/19/17 06/20/17 05:59 05:59 05:59 Intake Total 2243 2770 Output Total 2125 2500 Balance 118 270 Physical Exam - Physical Exam General Appearance: alert, no apparent distress (Remains somewhat restless), thin EENT: PERRL/EOMI, other (On room air) Neck: normal inspection Respiratory: lungs clear, normal breath sounds Cardiac/Chest: regular rate, rhythm Abdomen: normal bowel sounds, non-tender, soft, other (Eating, drinking) Pelvic Exam: other (Hickman catheter in place. Will try removing this again today and see how she does.) Skin: normal color, warm/dry Extremities: No pedal edema Neuro/Psych: no motor/sensory deficits (Moves all extremities equally. 1-2 person assist with physical therapy), cognition abnormalities (Oriented times 2 , confused, rambling speech but overall deli cook) ICD10 Worksheet Patient Problems: Problems Problem Status Onset Subarachnoid hemorrhage Acute
[2017-06-19] MEDS: KETOROLAC 15 MG/1 ML SDV IVP PRN (13:55)
[2017-06-19] MEDS: POLYETHYLENE GLYCOL 3350 17 GM PKT PO PRN (13:57)
[2017-06-19] MEDS: PRAVASTATIN SODIUM 40 MG TAB PO SCH (13:58)
[2017-06-19] MEDS: LEVOTHYROXINE 112 MCG TAB PO SCH (13:58)
--- NOTE | 2017-06-19 14:23 | ASMTCMCOM ---
CM Note CM Note Notes: Spoke with Haylie William of inpatient rehab today. Patient's will tour their program and give us a decision about where he wants rehab for his . Awaiting Rory's decision to finalize d/c plan. CM will follow. Date Signed: 06/19/2017 02:22 PM Electronically Signed By:Brittany Wong LCSW
[2017-06-19] MEDS: AMITRIPTYLINE HCL 100 MG TAB PO SCH (21:43)
[2017-06-20] MEDS: ACETAMINOPHEN 650 MG/20.3 ML UDCUP PO SCH ×4 (00:41→17:56)
[2017-06-20] MEDS: niMODipine 30 MG CAP PO SCH ×6 (01:48→21:44)
[2017-06-20] MEDS: ONDANSETRON 4 MG/2 ML VIAL IVP PRN (02:01)
[2017-06-20] MEDS: LEVOTHYROXINE 112 MCG TAB PO SCH (05:42)
[2017-06-20] MEDS ORDERED: MAGNESIUM SULF 1 GM/DEXTROSE 100 ML IV ONE (06:10)
[2017-06-20] MEDS: POTASSIUM Cl (KCl) 50 ML IV SCH ×3 (06:50→08:02)
--- NOTE | 2017-06-20 08:17 | NEUSURGPN ---
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 Hopefully will get to the chair today and start advancing her activities. Still is not eating very well. -PT/OT/ST-CPM -Keep SBP less than 180 -monitor for HCP -Repeat head CT / stable -Continue Keppra 750 BID -Continue Nimodipine 60mg q4h -TCDs - -call with any questions or concerns -continue with ICU status to monitor for vasospasm/hydrocephalus-Currently doing better and improving daily on exam -Discussed with Dr. Curry -Patient was on Precedex for agitation related to acute encephalopathy -Patient is under weight with a lower body mass index, stripe marker denies malnutrition -Patient was admitted with hypertensive crisis Subjective: Patient denies headache this morning. Per RN received Tylenol for headache this morning. Tried to get to commode last night and too max assist. Objective: Oriented to self PERRLA CN 2-12 grossly intact Follows commands 5/5 BUE, BLE - Physician Discussed Patient with : Patricio Patient Seen by : Patricio Neurosurgery Physical Exam - Vitals, I&O, Labs I and O 06/19/17 06/20/17 06/21/17 05:59 05:59 05:59 Intake Total 2770 962 Output Total 2500 950 Balance 270 12 Intake: Oral (ml) 1020 650 IV Intake (ml) 889 312 IV Infused (ml) 861 Dexmedetomidine HCl 400 123 mcg In Ns 100 ml @ Titrate IV CONT ELVIA Rx#: [id number] POTASSIUM Cl (KCl) 40 meq 691 In Ns 1,000 ml @ 75 mls/ hr IV CONT ELVIA Rx#: [id number] niCARdipine/NACL 200 ml @ 47 Titrate IV CONT ELVIA Rx#: [id number] Output: Urine (ml) 2500 950 Catheter 2500 950 Other: Number of Voids Incontinence 1 Vital Signs Temp Pulse Resp BP Pulse Ox 36.8 C 72 14 138/68 H 98 06/20/17 07:05 06/20/17 07:05 06/20/17 07:05 06/20/17 07:05 06/19/17 20:00 Laboratory Results 06/18/17 04:48 06/20/17 05:35 ICD10 Worksheet Patient Problems: Problems Problem Status Onset Subarachnoid hemorrhage Acute
[2017-06-20] MEDS: levETIRAcetam 250 MG TAB PO SCH ×2 (09:29→21:44)
[2017-06-20] MEDS: SENNOSIDES/DOCUSATE SODIUM TAB PO SCH ×4 (09:29→21:54)
[2017-06-20] MEDS: PRAVASTATIN SODIUM 40 MG TAB PO SCH (09:41)
[2017-06-20] MEDS ORDERED: ALBUMIN 5% 500 ML IV ONE (10:56)
[2017-06-20] MEDS: NS W/ 20 KCl/L 1,000 ML IV SCH (11:54)
[2017-06-20] MEDS ORDERED: POTASSIUM Cl (KCl) 50 ML IV ONE (14:26)
--- NOTE | 2017-06-20 16:26 | PDINTPN ---
Pet Sitting Progress Note Assessment/Plan: Assessment: SAH Day 8: S/P coil embolization. On Nimodipine, Keppra. No evidence of spasm yesterday by transcranial Doppler but decline in mental status and more focal deficits on the right today are worrisome for possible spasm. Increasing pneumocephalus also possible. Neuro surgery evaluating. Will increase IV fluids/intravascular volume. HTN: Acutely elevated on presentation/admission. Blood pressure has been controlled with a Nicardipine gtt as needed, currently off. Controlling pressure if over 180. Agitation/Delirium: Improved. Off Precedex. Morphine PRN for pain but not requiring this presently. Hypokalemia: On replacement protocol Nausea: Resolved currently. Nutrition: Cleared for a dysphagia 2 diet. Prophylaxis: DVT, SCDs. GI, pantoprazole to start, eating. Plan: Continue nimodipine. Follow clinical/neurologic status closely. Continue nicardipine for blood pressure if needed. Precedex as needed for agitation. Continue Zofran, Compazine for nausea as needed. Replace K+, follow laboratory. Will allow lower limit of systolic blood pressure to come up in light of potential for vaso spasm. Increase intravenous fluids, follow CVP. 40 min of critical care time spent directly with the patient. Discussed with nursing, NS, the ICU multi disciplinary team. Subjective: More lethargic today and less responsive. Looks to voice. Moving right side less well. Objective: Vital Signs Temp Pulse Resp BP Pulse Ox 36.8 C 70 14 179/80 H 99 06/20/17 07:05 06/20/17 14:00 06/20/17 14:00 06/20/17 14:00 06/20/17 14:00 Laboratory Results 06/18/17 04:48 06/20/17 12:00 06/19/17 06/20/17 06/21/17 05:59 05:59 05:59 Intake Total 2770 962 Output Total 2500 950 Balance 270 12 Physical Exam - Physical Exam General Appearance: no apparent distress, obtunded, thin, No alert EENT: PERRL/EOMI, other (On room air) Neck: normal inspection (No JVD) Respiratory: lungs clear Cardiac/Chest: regular rate, rhythm Abdomen: normal bowel sounds, non-tender Pelvic Exam: other (Hickman catheter, good urine output) Skin: normal color, warm/dry Extremities: No pedal edema Neuro/Psych: cognition abnormalities (More somnolent, less responsive today. Largely nonverbal. Able to answer questions with simple one-word responses, albeit slowly. Remains confused.), No no motor/sensory deficits ICD10 Worksheet Patient Problems: Problems Problem Status Onset Subarachnoid hemorrhage Acute
[2017-06-20] MEDS: AMITRIPTYLINE HCL 100 MG TAB PO SCH (21:44)
[2017-06-21] MEDS: ACETAMINOPHEN 650 MG/20.3 ML UDCUP PO SCH ×2 (00:26→05:45)
[2017-06-21] MEDS: niMODipine 30 MG CAP PO SCH ×6 (01:49→21:50)
[2017-06-21 03:14] LABS: PLATELET COUNT 184 10^3/uL (150-400)
[2017-06-21] MEDS ORDERED: POTASSIUM Cl (KCl) 50 ML IV ONE (03:15)
[2017-06-21] MEDS ORDERED: MAGNESIUM SULF 1 GM/DEXTROSE 100 ML IV ONE (03:15)
[2017-06-21] MEDS: LEVOTHYROXINE 112 MCG TAB PO SCH (05:45)
--- NOTE | 2017-06-21 07:36 | NEUSURGPN ---
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, F3- POD #7 s/p ACOMM coiling/pt with right ICA aneurysm as well Plan: -Neuro: Stable -PT/OT/ST-CPM -Keep SBP less than 180 -monitor for HCP -Repeat head CT 06/20 stable -Continue Keppra 750 BID -Continue Nimodipine 60mg q4h -TCDs -Will start Heparin 5000units BID today -call with any questions or concerns -continue with ICU status to monitor for vasospasm/hydrocephalus-May consider placement of lumbar drain if indicated -Patient was on Precedex for agitation related to acute encephalopathy -Patient is under weight with a lower body mass index, 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 Curry Subjective: No new events Objective: Oriented to self only PERRLA CN 2-12 grossly intact Follows commands Moves extremities x4, some global weakness noted in RUE Neuro Check Frequency: per routine Urinary Catheter in Place: No - Physician Discussed Patient with Dr.: Curry Neurosurgery Physical Exam - Vitals, I&O, Labs I and O 06/20/17 06/21/17 06/22/17 05:59 05:59 05:59 Intake Total 962 2416 Output Total 950 Balance 12 2416 Intake: Oral (ml) 650 500 IV Intake (ml) 312 707 IV Infused (ml) 1209 Albumin 5% 500 ml @ As 500 Directed IV ONCE ONE Rx#: [id number] NS W/ 20 KCl/L 1,000 ml @ 709 125 mls/hr IV CONT ELVIA Rx#:[id number] Output: Urine (ml) 950 Catheter 950 Other: Number of Voids Incontinence 1 2 Vital Signs Temp Pulse Resp BP Pulse Ox 36.6 C 80 12 117/58 L 99 06/20/17 20:00 06/21/17 06:43 06/21/17 06:43 06/21/17 06:43 06/21/17 06:00 Laboratory Results 06/21/17 02:55 06/21/17 02:55 ICD10 Worksheet Patient Problems: Problems Problem Status Onset Subarachnoid hemorrhage Acute
[2017-06-21] MEDS ORDERED: PANTOPRAZOLE SODIUM 40 MG VIAL IVP SCH (09:00)
[2017-06-21] MEDS: PRAVASTATIN SODIUM 40 MG TAB PO SCH (09:07)
[2017-06-21] MEDS: SENNOSIDES/DOCUSATE SODIUM TAB PO SCH ×2 (09:07→21:51)
[2017-06-21] MEDS: PANTOPRAZOLE SODIUM 40 MG TAB PO SCH (09:07)
[2017-06-21] MEDS: levETIRAcetam 250 MG TAB PO SCH ×2 (09:07→21:52)
[2017-06-21] MEDS: HEPARIN 5,000 UNIT/0.5 ML SYR SC SCH ×2 (09:07→21:50)
--- NOTE | 2017-06-21 13:01 | ASMTCMCOM ---
CM Note CM Note Notes: Spoke with patient's who has made the decision for patient to go to [facility] inpatient rehab. Contacted Haylie to let her know. Patient will most likely be ready for discharge at the begininning of next week. Notified [facility] of patient's decision. D/C plan is for patient to go to [facility] inpatient rehab when she is medically stable. CM will follow. Date Signed: 06/21/2017 01:00 PM Electronically Signed By:Brittany Wong LCSW
[2017-06-21] MEDS: ACETAMINOPHEN 325 MG TAB PO SCH ×2 (14:36→18:16)
--- NOTE | 2017-06-21 15:29 | PDINTPN ---
Business Intelligence Etl Developer Progress Note Assessment/Plan: Assessment: SAH Day 9: S/P coil embolization. On Nimodipine, Keppra. No evidence of spasm by transcranial Doppler. Mental status and focality on the right both seem better today. HTN: Acutely elevated on presentation/admission. Blood pressure has been controlled with a Nicardipine gtt as needed, currently off. Controlling pressure if over 180. Agitation/Delirium: Improved. Off Precedex. Morphine PRN for pain but not requiring this presently. Hypokalemia: On replacement protocol Nausea: Improved. Nutrition: Cleared for a dysphagia 2 diet. No aspiration with swallow evaluation today. Prophylaxis: DVT: SCDs, subcu heparin. GI: pantoprazole, eating. Plan: Continue nimodipine. Follow clinical/neurologic status. Continue nicardipine for blood pressure if needed. Hold Precedex. Continue Zofran, Compazine for nausea as needed. Replace K+, follow laboratory. Monitor blood pressure, treat if needed. Continue intravenous fluids, follow CVP. 30 min of critical care time spent directly with the patient. Discussed with nursing, the ICU multi disciplinary team. Subjective: Somnolent this morning but when aroused and stimulated she moves right side more than she did yesterday, is more vocal. Remains confused. Oriented to person Objective: Vital Signs Temp Pulse Resp BP Pulse Ox 36.5 C 79 15 189/90 H 94 06/21/17 08:59 06/21/17 14:00 06/21/17 14:00 06/21/17 14:00 06/21/17 08:59 Laboratory Results 06/21/17 02:55 06/21/17 12:50 06/20/17 06/21/17 06/22/17 05:59 05:59 05:59 Intake Total 962 2416 Output Total 950 Balance 12 2416 Laboratory Tests 06/21/17 02:55 Sodium 138 Potassium 3.8 Chloride 105 Carbon Dioxide 26 Anion Gap 7 L BUN 10 Creatinine 0.5 L Glucose 90 Calcium 8.2 L Magnesium 1.8 AST 37 ALT 36 Albumin 2.9 L Video esophagram: No evidence of bruno aspiration. Swallow was delayed and coaching was needed. Physical Exam - Physical Exam General Appearance: thin, other (Somnolent, arouses, responds to simple questions and commands) EENT: PERRL/EOMI, other (On room air) Neck: normal inspection (No JVD) Respiratory: lungs clear, decreased breath sounds (At bases) Cardiac/Chest: regular rate, rhythm Abdomen: normal bowel sounds, non-tender, soft Skin: normal color, warm/dry Extremities: No pedal edema Neuro/Psych: cognition abnormalities (Somewhat better today), No no motor/ sensory deficits (Right-sided weakness remains present but improved today compared to yesterday) ICD10 Worksheet Patient Problems: Problems Problem Status Onset Subarachnoid hemorrhage Acute
[2017-06-21] MEDS: AMITRIPTYLINE HCL 100 MG TAB PO SCH (21:00)
[2017-06-21] MEDS: NS W/ 20 KCl/L 1,000 ML IV SCH (22:06)
[2017-06-21] MEDS: QUEtiapine FUMARATE 25 MG TAB PO PRN (22:58)
[2017-06-22] MEDS ORDERED: POTASSIUM Cl (KCl) 50 ML IV ONE ×3 (01:45→20:59)
[2017-06-22] MEDS: niMODipine 30 MG CAP PO SCH ×6 (01:54→23:58)
[2017-06-22] MEDS: ACETAMINOPHEN 325 MG TAB PO SCH ×4 (06:16→20:13)
[2017-06-22] MEDS: LEVOTHYROXINE 112 MCG TAB PO SCH (06:17)
[2017-06-22] MEDS: ALTEPLASE 2 MG VIAL IVP PRN ×3 (06:21→17:54)
[2017-06-22] MEDS: levETIRAcetam 250 MG TAB PO SCH ×2 (08:55→20:12)
[2017-06-22] MEDS: PANTOPRAZOLE SODIUM 40 MG TAB PO SCH (08:55)
[2017-06-22] MEDS: HEPARIN 5,000 UNIT/0.5 ML SYR SC SCH ×2 (08:55→20:13)
[2017-06-22] MEDS: SENNOSIDES/DOCUSATE SODIUM TAB PO SCH ×2 (08:55→20:12)
[2017-06-22] MEDS: PRAVASTATIN SODIUM 40 MG TAB PO SCH (10:58)
--- NOTE | 2017-06-22 12:43 | NEUSURGPN ---
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 Curry Subjective: unable to obtain Objective: Oriented to self only PERRLA CN 2-12 grossly intact Follows commands Moves extremities x4, some global weakness noted in RUE Neuro Check Frequency: per routine Urinary Catheter in Place: No - Physician Discussed Patient with : Patricio Neurosurgery Physical Exam - Vitals, I&O, Labs I and O 06/21/17 06/22/17 06/23/17 05:59 05:59 05:59 Intake Total 2416 1987 Balance 2416 1987 Intake: Oral (ml) 500 550 IV Intake (ml) 707 1438 IV Infused (ml) 1209 Albumin 5% 500 ml @ As 500 Directed IV ONCE ONE Rx#: [id number] NS W/ 20 KCl/L 1,000 ml @ 709 125 mls/hr IV CONT ELVIA Rx#:[id number] Other: Number of Voids Incontinence 2 2 Number of Stools Incontinence 0 Vital Signs Temp Pulse Resp BP Pulse Ox 36.8 C 76 19 135/66 H 96 06/22/17 12:00 06/22/17 12:00 06/22/17 12:00 06/22/17 12:00 06/22/17 12:00 Laboratory Results 06/21/17 02:55 06/22/17 06:15 ICD10 Worksheet Patient Problems: Problems Problem Status Onset Subarachnoid hemorrhage Acute
--- NOTE | 2017-06-22 17:30 | PDINTPN ---
Vice President Pharmacy Progress Note Assessment/Plan: Assessment: SAH Day 10: S/P coil embolization. On Nimodipine, Keppra. No evidence of spasm by transcranial Doppler MWF. Mental status and level of consciousness improved today, in part secondary to Ritalin. Remains weak globally with some right- sided deficits evident.. HTN: Acutely elevated on presentation/admission. Blood pressure has been controlled with a Nicardipine gtt as needed, currently off. Controlling pressure if over 180. Agitation/Delirium: Improved. Off Precedex. Morphine PRN for pain but not requiring this presently. Hypokalemia: On replacement protocol Nausea: Improved. Nutrition: Cleared for a dysphagia 2 diet. No aspiration with video esophagram. Prophylaxis: DVT: SCDs, subcu heparin. GI: pantoprazole, eating. Plan: Continue nimodipine. Follow clinical/neurologic status. Continue nicardipine for blood pressure if needed. Hold Precedex. Follow-up potassium comma laboratory intermittently. Potassium replacement is needed. Monitor blood pressure, treat if needed. Decrease intravenous fluids. Increase mobilization, strengthening as tolerated. Began to look towards discharge needs : Inpatient rehabilitation verses SNF. 25 min of critical care time spent directly with the patient. Discussed with nursing, the ICU multi disciplinary team. Subjective: Much brighter, appropriate today. Still with generalized weakness, right side greater than left. Remains oriented to person, not necessarily place or time. Objective: Vital Signs Temp Pulse Resp BP Pulse Ox 36.2 C 62 13 156/70 H 94 06/22/17 16:00 06/22/17 16:00 06/22/17 16:00 06/22/17 16:00 06/22/17 16:00 Laboratory Results 06/21/17 02:55 06/22/17 14:55 06/21/17 06/22/17 06/23/17 05:59 05:59 05:59 Intake Total 2416 1987 Balance 2416 1987 Physical Exam - Physical Exam General Appearance: no apparent distress, thin, other (2 person transfer) EENT: PERRL/EOMI, other (On room air) Neck: normal inspection Respiratory: lungs clear Cardiac/Chest: regular rate, rhythm Abdomen: normal bowel sounds, non-tender, soft Pelvic Exam: other (No Hickman, using commode) Skin: warm/dry, pallor Extremities: pedal edema (Trace +) Neuro/Psych: cognition abnormalities (Oriented x1), No no motor/sensory deficits (Globally weak, more weak on the right than the left.) ICD10 Worksheet Patient Problems: Problems Problem Status Onset Subarachnoid hemorrhage Acute
[2017-06-22] MEDS: QUEtiapine FUMARATE 25 MG TAB PO PRN (20:12)
[2017-06-22] MEDS: AMITRIPTYLINE HCL 100 MG TAB PO SCH (20:13)
[2017-06-23] MEDS ORDERED: POTASSIUM Cl (KCl) 50 ML IV ONE (00:15)
[2017-06-23] MEDS: ACETAMINOPHEN 325 MG TAB PO SCH ×5 (00:30→23:07)
[2017-06-23] MEDS: niMODipine 30 MG CAP PO SCH ×5 (04:00→19:54)
[2017-06-23] MEDS: LEVOTHYROXINE 112 MCG TAB PO SCH (05:11)
[2017-06-23] MEDS: levETIRAcetam 250 MG TAB PO SCH ×2 (08:36→20:00)
[2017-06-23] MEDS: PANTOPRAZOLE SODIUM 40 MG TAB PO SCH (08:36)
[2017-06-23] MEDS: SENNOSIDES/DOCUSATE SODIUM TAB PO SCH ×2 (08:36→19:53)
[2017-06-23] MEDS: HEPARIN 5,000 UNIT/0.5 ML SYR SC SCH ×2 (08:43→20:09)
[2017-06-23] MEDS: PRAVASTATIN SODIUM 40 MG TAB PO SCH (08:48)
--- NOTE | 2017-06-23 09:21 | NEUSURGPN ---
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, F3- POD #8 s/p ACOMM coiling/pt with right ICA aneurysm as well Plan: -SDU status -Neuro: Stable -PT/OT/ST-CPM -Keep SBP less than 180 -monitor for HCP -Repeat head CT 06/20 stable -Continue Keppra 750 BID -Continue Nimodipine 60mg q4h -TCDs -Continue Heparin 5000units BID -Started patient on Ritilan this am to help with somnolence, much improved mentation, sitting in chair smiling -call with any questions or concerns -continue with ICU status to monitor for vasospasm/hydrocephalus-May consider placement of lumbar drain if indicated -Patient will likely need rehab, case management to eval for dispo options -Patient was on Precedex for agitation related to acute encephalopathy -Patient is under weight with a lower body mass index, pulmonary fellow denies malnutrition -Patient was admitted with hypertensive crisis -Discussed with Dr. Curry Subjective: Patient denies headache Objective: Oriented to self only PERRLA CN 2-12 grossly intact Follows commands Moves extremities x4, some global weakness noted in RUE Neuro Check Frequency: per routine Urinary Catheter in Place: No - Physician Discussed Patient with Dr.: Curry Neurosurgery Physical Exam - Vitals, I&O, Labs I and O 06/22/17 06/23/17 06/24/17 05:59 05:59 05:59 Intake Total 1987 1296 Balance 1987 1296 Intake: Oral (ml) 550 400 IV Intake (ml) 1438 896 Other: Number of Voids Incontinence 2 3 Number of Stools Bedside Commode 0 Incontinence 0 Vital Signs Temp Pulse Resp BP Pulse Ox 36.5 C 67 18 145/87 H 93 06/23/17 08:00 06/23/17 08:00 06/23/17 08:00 06/23/17 08:00 06/23/17 08:00 Laboratory Results 06/21/17 02:55 06/23/17 05:00 ICD10 Worksheet Patient Problems: Problems Problem Status Onset Subarachnoid hemorrhage Acute
--- NOTE | 2017-06-23 12:53 | PDINTPN ---
Regulator Tester Progress Note Assessment/Plan: Assessment: SAH Day 11: S/P coil embolization. On Nimodipine, Keppra. No evidence of spasm by transcranial Doppler thus far. Being checked Saturday. Mental status and level of consciousness improved, in part secondary to Ritalin. Remains weak globally with some right-sided deficits evident. HTN: Acutely elevated on presentation/admission. Blood pressure has been controlled with a Nicardipine gtt as needed, currently off. Controlling pressure if over 180. Agitation/Delirium: Improved. Off Precedex. Morphine PRN for pain but not requiring. Will add oxycodone if needed.. Hypokalemia: On replacement protocol Nausea: Improved. Nutrition: Cleared for a dysphagia 2 diet. No aspiration with video esophagram. Prophylaxis: DVT: SCDs, subcu heparin. GI: pantoprazole, eating. Plan: Continue nimodipine. Follow clinical/neurologic status. Nicardipine for blood pressure if needed. Follow potassium, laboratory intermittently. Potassium replacement as needed. Monitor blood pressure, treat if needed. Continue intravenous fluids. Increase mobilization, strengthening as tolerated. Began to look towards discharge needs: Inpatient rehabilitation verses SNF. 20 min of critical care time spent directly with the patient. Discussed with nursing, the ICU multi disciplinary team. Subjective: Brighter, more communicated if. Doing better regarding feeding herself. Objective: Vital Signs Temp Pulse Resp BP Pulse Ox 36.5 C 75 20 145/88 H 93 06/23/17 08:00 06/23/17 12:00 06/23/17 12:00 06/23/17 12:00 06/23/17 08:00 Laboratory Results 06/21/17 02:55 06/23/17 05:00 06/22/17 06/23/17 06/24/17 05:59 05:59 05:59 Intake Total 1987 1296 Balance 1987 1296 Physical Exam - Physical Exam General Appearance: alert, no apparent distress, thin EENT: PERRL/EOMI, other (On room air) Neck: normal inspection Respiratory: lungs clear Cardiac/Chest: regular rate, rhythm Abdomen: normal bowel sounds, non-tender, soft Skin: normal color, warm/dry Extremities: pedal edema (Trace +) Neuro/Psych: no motor/sensory deficits (Mild right-sided weakness compared to left), cognition abnormalities (Remains confused) ICD10 Worksheet Patient Problems: Problems Problem Status Onset Subarachnoid hemorrhage Acute
[2017-06-23] MEDS ORDERED: PROTOCOL POTASSIUM 1 DOSE MISC PRN (12:58)
[2017-06-23] MEDS: OXYCODONE/APAP 5/325 TAB PO PRN ×2 (13:59→20:06)
[2017-06-23] MEDS: AMITRIPTYLINE HCL 100 MG TAB PO SCH (20:02)
[2017-06-23] MEDS ORDERED: [UNRECOGNIZED DRUG - OTHER] PO SCH (22:00)
[2017-06-24] MEDS: [UNRECOGNIZED DRUG - OTHER] PO SCH ×7 (00:06→23:50)
[2017-06-24] MEDS: OXYCODONE/APAP 5/325 TAB PO PRN (03:38)
[2017-06-24] MEDS: ALTEPLASE 2 MG VIAL IVP PRN (04:02)
[2017-06-24] MEDS: ACETAMINOPHEN 325 MG TAB PO SCH ×4 (05:56→23:49)
[2017-06-24] MEDS: LEVOTHYROXINE 112 MCG TAB PO SCH (06:05)
--- NOTE | 2017-06-24 08:20 | NEUSURGPN ---
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, F3- POD #8 s/p ACOMM coiling/pt with right ICA aneurysm as well Plan: -SDU status -Neuro: Stable -PT/OT/ST-CPM -Keep SBP less than 180 -monitor for HCP -Repeat head CT 06/20 stable -Continue Keppra 750 BID -Continue Nimodipine 60mg q4h -TCDs M-W this week -Continue Heparin 5000units BID -Started patient on Ritilan this am to help with somnolence, much improved mentation -call with any questions or concerns -continue with ICU status to monitor for vasospasm/hydrocephalus-May consider placement of lumbar drain if indicated -Patient will likely be able to go to rehab later this week, case management to work on options -Patient was on Precedex for agitation related to acute encephalopathy -Patient is under weight with a lower body mass index, 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 Curry Subjective: No new events Objective: Oriented to self only PERRLA CN 2-12 grossly intact Follows commands Moves extremities x4, some global weakness noted in RUE Neuro Check Frequency: per routine Urinary Catheter in Place: No - Physician Discussed Patient with Dr.: Curry Neurosurgery Physical Exam - Vitals, I&O, Labs I and O 06/23/17 06/24/17 06/25/17 05:59 05:59 05:59 Intake Total 1296 1353 Balance 1296 1353 Intake: Oral (ml) 400 600 IV Intake (ml) 896 453 IV Infused (ml) 300 NS W/ 20 KCl/L 1,000 ml @ 300 75 mls/hr IV CONT ELVIA Rx #:[id number] Other: Number of Voids Incontinence 3 2 Number of Stools Bedside Commode 0 Incontinence 0 Vital Signs Temp Pulse Resp BP Pulse Ox 36.6 C 68 12 105/55 L 94 06/24/17 00:00 06/24/17 04:00 06/24/17 04:00 06/24/17 04:00 06/24/17 04:00 Laboratory Results 06/21/17 02:55 06/24/17 04:00 ICD10 Worksheet Patient Problems: Problems Problem Status Onset Subarachnoid hemorrhage Acute
[2017-06-24] MEDS: POLYETHYLENE GLYCOL 3350 17 GM PKT PO PRN (08:22)
[2017-06-24] MEDS: PRAVASTATIN SODIUM 40 MG TAB PO SCH (08:22)
[2017-06-24] MEDS ORDERED: MAGNESIUM SULF 1 GM/DEXTROSE 100 ML IV ONE (08:22)
[2017-06-24] MEDS: PANTOPRAZOLE SODIUM 40 MG TAB PO SCH (08:22)
[2017-06-24] MEDS: SENNOSIDES/DOCUSATE SODIUM TAB PO SCH ×2 (08:22→20:02)
[2017-06-24] MEDS: HEPARIN 5,000 UNIT/0.5 ML SYR SC SCH ×2 (08:23→20:01)
[2017-06-24] MEDS: levETIRAcetam 250 MG TAB PO SCH ×2 (08:23→20:02)
--- NOTE | 2017-06-24 09:18 | PDINTPN ---
Pumper Gauger Progress Note Assessment/Plan: Assessment/Plan: * SAH Day 11: S/P coil embolization. On Nimodipine, Keppra. No evidence of spasm by transcranial Doppler thus far. Being checked Saturday. Mental status and level of consciousness improved, in part secondary to Ritalin. Remains weak globally with some right-sided deficits evident. * HTN: Much better controlled. -continue nicardipine * Agitation/Delirium: Improved. Off Precedex. Morphine PRN for pain but not requiring. Will add oxycodone if needed.. * Hypokalemia: On replacement protocol * Nausea: Improved. * Nutrition: Cleared for a dysphagia 2 diet. No aspiration with video esophagram. * Prophylaxis: DVT: SCDs, subcu heparin. GI: pantoprazole, eating. Overall markedly improved. Subjective: Sitting up in chair. Resting comfortably. Objective: Vital Signs Temp Pulse Resp BP Pulse Ox 36.7 C 73 16 169/86 H 95 06/24/17 08:00 06/24/17 08:00 06/24/17 08:00 06/24/17 08:00 06/24/17 08:00 Laboratory Results 06/21/17 02:55 06/24/17 04:00 06/23/17 06/24/17 06/25/17 05:59 05:59 05:59 Intake Total 1296 1353 Balance 1296 1353 - Time Spent With Patient Time Spent With Patient: 25 min of time spent with patient, over 1/2 involved with coordination of care or counseling Physical Exam - Physical Exam General Appearance: alert EENT: PERRL/EOMI Neck: non-tender, full range of motion Respiratory: chest non-tender, lungs clear, normal breath sounds Cardiac/Chest: normal peripheral pulses, regular rate, rhythm, systolic murmur Peripheral Pulses: 2+: carotid (R), carotid (L), femoral (R), femoral (L), dorsalis-pedis (R), dorsalis-pedis (L) Abdomen: normal bowel sounds, non-tender, soft Pelvic Exam: deferred Rectal: deferred Skin: normal color, warm/dry Extremities: non-tender ICD10 Worksheet Patient Problems: Problems Problem Status Onset Subarachnoid hemorrhage Acute
[2017-06-24] MEDS: AMITRIPTYLINE HCL 100 MG TAB PO SCH (20:02)
[2017-06-25] MEDS: LEVOTHYROXINE 112 MCG TAB PO SCH (03:10)
[2017-06-25] MEDS: ACETAMINOPHEN 325 MG TAB PO SCH (03:10)
[2017-06-25] MEDS: [UNRECOGNIZED DRUG - OTHER] PO SCH ×2 (03:10→08:34)
[2017-06-25] MEDS: ALTEPLASE 2 MG VIAL IVP PRN (05:53)
[2017-06-25 08:49] VITALS: BP 142/71
--- NOTE | 2017-06-25 09:08 | NEUSURGPN ---
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, F3- POD #8 s/p ACOMM coiling/pt with right ICA aneurysm as well Plan: -SDU status -Neuro: Stable -PT/OT/ST-CPM -Keep SBP less than 180 -monitor for HCP -Continue Keppra 750 BID -Continue Nimodipine 60mg q4h -TCDs tomorrow (saturday) if still here -Continue Heparin 5000units BID -Started patient on Ritilan to help with somnolence, much improved mentation -Patient ok to transfer to rehab if bed available, will transfer to floor until bed available-case management to work on placement -Patient was on Precedex for agitation related to acute encephalopathy -Patient is under weight with a lower body mass index, 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 Curry Subjective: Smiling in bed, no new events Objective: Oriented to self only PERRLA CN 2-12 grossly intact Follows commands Moves extremities x4, some global weakness noted in RUE Neuro Check Frequency: per routine Urinary Catheter in Place: No - Physician Discussed Patient with Dr.: Curry Neurosurgery Physical Exam - Vitals, I&O, Labs I and O 06/24/17 06/25/17 06/26/17 05:59 05:59 05:59 Intake Total 1353 855 Balance 1353 855 Intake: Oral (ml) 600 800 IV Intake (ml) 453 55 IV Infused (ml) 300 NS W/ 20 KCl/L 1,000 ml @ 300 75 mls/hr IV CONT ELVIA Rx #:[id number] Other: Number of Voids Incontinence 2 1 Number of Stools Incontinence 0 Vital Signs Temp Pulse Resp BP Pulse Ox 36.6 C 72 11 L 142/71 H 93 06/25/17 08:00 06/25/17 08:00 06/25/17 08:00 06/25/17 08:00 06/25/17 08:00 Laboratory Results 06/21/17 02:55 06/25/17 05:45 ICD10 Worksheet Patient Problems: Problems Problem Status Onset Subarachnoid hemorrhage Acute
--- NOTE | 2017-06-25 09:09 | PDINTPN ---
Teacher Progress Note Assessment/Plan: Assessment/Plan: * SAH Day 11: S/P coil embolization. On Nimodipine, Keppra. No evidence of spasm by transcranial Doppler thus far. Being checked Saturday. * Mental status and level of consciousness- improved, in part secondary to Ritalin. Remains weak globally with some right-sided deficits evident. * HTN: Much better controlled. -continue nicardipine * Agitation/Delirium: Improved. Off Precedex. Morphine PRN for pain but not requiring. Will add oxycodone if needed.. * Hypokalemia: On replacement protocol * Nausea: Improved. * Nutrition: Cleared for a dysphagia 2 diet. No aspiration with video esophagram. * Prophylaxis: DVT: SCDs, subcu heparin. GI: pantoprazole, eating. Overall markedly improved. Subjective: Sitting up in chair and conversant. She denies any pain currently. Her appetite is good. Objective: Vital Signs Temp Pulse Resp BP Pulse Ox 36.6 C 72 11 L 142/71 H 93 06/25/17 08:00 06/25/17 08:00 06/25/17 08:00 06/25/17 08:00 06/25/17 08:00 Laboratory Results 06/21/17 02:55 06/25/17 05:45 06/24/17 06/25/17 06/26/17 05:59 05:59 05:59 Intake Total 1353 855 Balance 1353 855 - Time Spent With Patient Time Spent With Patient: 25 min of time spent with patient, over 1/2 involved with coordination of care or counseling. Case discussed with nursing. Physical Exam - Physical Exam General Appearance: WD/WN, alert, no apparent distress EENT: PERRL/EOMI Neck: non-tender, full range of motion, supple, normal inspection Respiratory: chest non-tender, lungs clear, normal breath sounds Cardiac/Chest: normal peripheral pulses, regular rate, rhythm Peripheral Pulses: 2+: carotid (R), carotid (L), femoral (R), femoral (L), dorsalis-pedis (R), dorsalis-pedis (L) Abdomen: normal bowel sounds, non-tender, soft Pelvic Exam: deferred Rectal: deferred Skin: normal color, warm/dry Extremities: non-tender Neuro/Psych: alert ICD10 Worksheet Patient Problems: Problems Problem Status Onset Subarachnoid hemorrhage Acute
[2017-06-25] MEDS ORDERED: POTASSIUM CL 10 MEQ TAB PO ONE (09:25)
[2017-06-25] MEDS: SENNOSIDES/DOCUSATE SODIUM TAB PO SCH (09:30)
[2017-06-25] MEDS: PANTOPRAZOLE SODIUM 40 MG TAB PO SCH (09:31)
[2017-06-25] MEDS: PRAVASTATIN SODIUM 40 MG TAB PO SCH (09:31)
[2017-06-25] MEDS: levETIRAcetam 250 MG TAB PO SCH (09:31)
[2017-06-25] MEDS: HEPARIN 5,000 UNIT/0.5 ML SYR SC SCH (09:34)
--- NOTE | 2017-06-25 09:59 | PDIAF ---
- Diagnosis Diagnosis: S/P SAH, Acomm aneurysm, right ICA aneurysm coiled on 06/14/17 Code Status: Full Code - Medication Management Discharge Medications: Medications to Continue on Transfer Amitriptyline HCl [Elavil 100 MG (*)] 100 mg PO HS 06/13/17 [Last Taken Unknown] Levothyroxine [Synthroid 112 mcg (*)] 112 mcg PO DAILY06 06/13/17 [Last Taken Unknown] Acetaminophen [Tylenol 325mg (*)] 650 mg PO Q6HRS tab 06/25/17 [Last Taken Unknown] Heparin [Heparin SC 5000 unit/0.5 ml (*)] 5,000 unit SC BID syr 06/25/17 [Last Taken Unknown] Sennosides/Docusate Sodium [Senokot-S] 1 - 2 tab PO BID tab 06/25/17 [Last Taken Unknown] levETIRAcetam [Keppra 250 mg (*)] 750 mg PO BID #60 tab 06/25/17 [Last Taken Unknown] methYLPHENIDATE HCL [Ritalin 10mg (*)] 10 mg PO DAILY #30 tab 06/25/17 [Last Taken Unknown] niMODipine [Nimotop] 60 mg PO Q4H #90 udl 06/25/17 [Last Taken Unknown] Additional Medication Instructions: Continue Nimodipine for 21 days after discharge Discharge Medications: Refer to the Discharge Home Medication list for PRN reason. - Orders Services needed: Registered Nurse, Certified Director Talent Management, Physical Therapy, Occupational Therapy, Speech Language Pathologist Isolation Type: None Diet Recommendation: no restrictions on diet Diet Texture: Dysphagia 2 - Mechanically Altered - Chopped, Ground, Thin Liquids , Meds Whole in Puree Wound Care Instructions: Ok to shower Additional Instructions: Avoid any strenuous activity - Follow Up Care Current Providers and Referrals: SHANTI TAYLOR [Primary Care Provider] - Henrik Curry MD [Medical Doctor] - follow up in 2 weeks
--- NOTE | 2017-06-25 13:39 | ASDISCHSUM ---
Discharge Information Plan Status:Inpatient Rehab Medically Cleared to Leave:06/25/2017 Discharge Date:06/25/2017 12:07 PM CM D/C Disposition[facility] ADT D/C Disposition[facility] Projected Discharge Date:06/25/2017 12:00 PM Transportation at D/C:ALS/BLS Discharge Delay Reason: Follow-Up Date:06/25/2017 12:00 PM Discharge Slot: Final Diagnosis:HTN rupture anterior aneurysm, SAH Placement Information Referral Type:Rehabilitation Hospital Referral ID:[id number] Provider Name:[facility]patient [facility] Address 1:[address] Phone Number: Address 2: Fax Number: City:[place] Selection Factors: State:[place] Patient Contact Information Contact Name:ARIK Relationship: Address:[address] Work Phone: [facility]:[place] Alternate Phone: [facility]/Zip Code:[place] [address] Email: Financial Information Financial Class:Medicare Primary Plan Desc:MEDICARE INPATIENT Primary Plan Number:[id number] Secondary Plan Desc:Enigmatec Secondary Plan Number:[id number] Assessment Information [facility] Initial CM Assessment Living Arrangements What is your living Answers: Alone arrangement? Who do you live with? Type Of Residence What kind of residence do Answers: Homeless you live in? Discharge Plan Comments Coordination Status Comments Notes: Patient is a 67yo female who woke up with a severe headache on the and sought treatment with [facility]. She was transferred to [facility] for anticipated treatment of her aneurysm by Dr. Curry. Patient was admitted for rupture of an anterior communicating artery aneurysm resulting in basilar subarachnoid hemorrhage. Dr Curry to clip the aneurysm today. Patient was unable to communicate when she arrived so living circumstances and marital status not known at this time. OT/PT/SOFTWARE DEVELOPER INTERN/Inpatient rehab have been ordered. D/C plan TBD. CM will follow. Date Signed: 06/14/2017 10:04 AM Electronically Signed By:Brittany Wong LCSW [facility] CM Progress Note CM Note CM Note Notes: Patient and live in [place] and would prefer going to [facility] location closer to their home in [place]. Referral sent. Date Signed: 06/16/2017 03:38 PM Electronically Signed By:Carmen Salinas LCSW [facility] Length of stay for Answers: 7-13 days current admission Acuity / Level of Answers: Yes Care: Did the patient have an inpatient admission? Comorbidities - select Answers: Cerebrovascular disease all that apply (CVA, TIA, aneurysms, vasc ular dementia) # of Emergency department Answers: 0 visits in the last 6 months Score: 9 Date Signed: 06/25/2017 11:24 AM Electronically Signed By:Carmen Salinas LCSW [facility] CM Progress Note CM Note CM Note Notes: Referral updates made. Patient continues to be confused. Date Signed: 06/18/2017 04:09 PM Electronically Signed By:Carmen Salinas LCSW [facility] CM Progress Note CM Note CM Note Notes: Spoke with Haylie William of inpatient rehab today. Patient's will tour their program and give us a decision about where he wants rehab for his . Awaiting Rory's decision to finalize d/c plan. CM will follow. Date Signed: 06/19/2017 02:22 PM Electronically Signed By:Brittany Wong LCSW [facility] CM Progress Note CM Note CM Note Notes: Spoke with patient's who has made the decision for patient to go to [facility] inpatient rehab. Contacted Haylie to let her know. Patient will most likely be ready for discharge at the begininning of next week. Notified [facility] of patient's decision. D/C plan is for patient to go to [facility] inpatient rehab when she is medically stable. CM will follow. Date Signed: 06/21/2017 01:00 PM Electronically Signed By:Brittany Wong LCSW Case Management Discharge Plan Note Case Management Discharge Discharge Order Complete? Answers: Yes Patient to Obtain Answers: Other Notes: [facility] In-pt rehab Medications Transportation Arranged Answers: [facility] will Pick (Date 06/25/2017 12:00 PM & Time) Case Management Transport Answers: Yes Form Complete Faxed Final Orders Answers: Yes Notes: [facility] In-pt rehab Family Notified Answers: Yes Notes: Spoke to Discharge Comments Notes: Patient has been discharged to [facility] In-pt rehab. [facility] to transport. informed Date Signed: 06/25/2017 11:17 AM Electronically Signed By:Carmen Salinas LCSW Intervention Information Intervention Type:*IM-Signed Date of Service:06/25/2017 01:37 PM Patient Type:Inpatient Staff Member:EFFIE Salinas Judith Hours: Discipline:Auto Motor Mechanic Severity: Comment:
== END 2017-06-25 12:07 | DRG 20 ==
LOC: OBSVTOIN 13:19 → F2N 13:19
PROVIDERS: ADMIT Neurological Surgery; ATTEND Neurological Surgery
PROC: 03LG3DZ Occlusion of Intracranial Artery with Intraluminal Device, Percutaneous Approach (ICD-10-PCS; principal; 2017-06-14)
PROC: 02HV33Z Insertion of Infusion Device into Superior Vena Cava, Percutaneous Approach (ICD-10-PCS; 2017-06-17)
DX: I60.2 Nontraumatic subarachnoid hemorrhage from anterior communicating artery (principal); G93.40 Encephalopathy, unspecified; I16.9 Hypertensive crisis, unspecified; E87.6 Hypokalemia; R32 Unspecified urinary incontinence; R63.6 Underweight; Z68.1 Body mass index [BMI] 19.9 or less, adult; E03.9 Hypothyroidism, unspecified; F17.210 Nicotine dependence, cigarettes, uncomplicated
CPT/HCPCS: 92507-GN; 92523-GN; 92526-GN; 92610-GN; 92611-GN; 97112-GO; 97112-GP; 97116-GP; 97162-GP; 97166-GO; 97530-GO; 97530-GP; 97535-GO; C1751; C1760; C1769; C1887; C1894; G0515-GO; G8978-GP-CK; G8979-GP-CI; G8979-GP-CJ; G8980-GP-CM; G8987-GO-CM; G8988-GO-CJ; G8996-GN-CJ; G8997-GN-CH; G9165-GN-CL; G9166-GN-CJ; G9167-GN-CL; J1100; J1644; J1885; J1953; J2001; J2270; J2405; J2704; J2997; J3010; J3475; J3480; P9041; Q9967

== ENCOUNTER 2017-06-20 15:19 | Inpatient (IN) | payer OTHER ==
--- NOTE | 2017-06-25 14:42 | GHP ---
[f rep st] HISTORY AND PHYSICAL POST ADMISSION PHYSICIAN EVALUATION AND REHABILITATION TREATMENT PLAN DATE OF ADMISSION: 06/25/2017 DATE OF EVALUATION: 06/25/2017. TIME OF EVALUATION: 1305. REFERRING FACILITY: [facility]. REFERRING PHYSICIAN: Rey Reis PA-C IMPAIRMENT GROUP: 2.1. DATE OF ONSET: 06/12/2017. CONSULTING PHYSICIANS: She was seen in consultation by the Pulmonary Critical Care service, Abdirizak Garza MD. REHABILITATION DIAGNOSIS: Debility, status post subarachnoid hemorrhage and coiling of intracranial aneurysm. ETIOLOGIC DIAGNOSIS: Nontraumatic brain dysfunction. DATE OF SURGERY: 06/14/2017. HISTORY OF PRESENT ILLNESS: This patient is a 67-year-old woman who was admitted to [facility] on 06/12/2017, with severe headache and elevated blood pressure. 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 There was also a right internal carotid aneurysm and enlarged ventricles indicating a possible hydrocephaly. She had a progressive decline in status and was transferred to [facility] on 2017. She had cerebral angiography and coil embolization on 06/14/2017. She had agitation and was on Precedex for part of her hospital stay. Levetiracetam was initiated for seizure prophylaxis and nicardipine for blood pressure management IV. She was also treated with nimodipine as indicated for blood pressure control and reduction of vasospasm for 21 days post coiling. She had somnolence and was begun on methylphenidate. She was ultimately medically stabilized and transferred to inpatient rehabilitation. LABORATORIES AND STUDIES: CBC on 06/18 and 06/21/2017 revealed anemia, hemoglobin was 12.2 and hematocrit 34.9 on 06/18, and they were 11.7 and 33.3 on 06/21. There was no thrombocytopenia. Serum chemistry on 06/21/2017, showed normal renal function and electrolytes. She had a low creatinine. Liver functions were normal but for a slightly low calcium and slightly low albumin at 2.9. She had hypokalemia intermittently, which was repleted IV. She had a low magnesium at one point during her stay, which was also repleted. Head CT on 06/20/2017, showed no new intracranial hemorrhage, decrease of the subarachnoid hemorrhage along the sylvian fissures, and decreased intraventricular hemorrhage. She continued to have moderate ventriculomegaly. Chest x-ray on 06/17/2017 verified positioning of the left-sided PICC line. PRECAUTIONS: She is a fall risk. She has seizure precautions. She has aspiration precautions. ACTIVE COMORBIDITIES: She has the tier 2 comorbidity of dysphagia. Otherwise, she has no tier 1, tier 2, or tier 3 comorbidities. PAST MEDICAL HISTORY: 1. Fibromyalgia. 2. Hypothyroidism. PAST SURGICAL HISTORY: She has had a hysterectomy. PREHOSPITAL MEDICATIONS: 1. Levothyroxine 100 mcg p.o. q. day. 2. Amitriptyline 100 mg p.o. at bedtime. ADMISSION MEDICATIONS: 1. Acetaminophen 650 mg p.o. q.6 hours. 2. Amitriptyline 100 mg p.o. q.h.s. 3. Heparin 5000 units subcutaneous b.i.d. 4. Levetiracetam 750 mg p.o. b.i.d. 5. Levothyroxine 112 mcg p.o. q. day. 6. Methylphenidate 10 mg p.o. q. day. 7. Nimodipine 60 mg p.o. q.4 hours. 8. Senna/docusate 1-2 tablets p.o. b.i.d. ALLERGIES: There are no known drug allergies. PSYCHOSOCIAL HISTORY: She is . She lives with her in a bilevel house with 7 stairs to go up and 7 stairs to go down. 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 She has 2 adult children in their 40s, 1 of whom is local and 1 who lives out of state. She is a smoker and occasionally uses alcohol. FAMILY HISTORY: Her mother had breast cancer. REVIEW OF SYSTEMS: Limited due to cognitive issues. She appears to deny pain though she has periodic grimacing. She denies cough or dyspnea. She denies nausea, vomiting, constipation, or diarrhea, and her last bowel movement has not been recorded in the hospital chart. She has no difficulty urinating. Otherwise, to the extent that it could be conducted, a 10-point review of systems was negative. PHYSICAL EXAMINATION: VITALS: This morning in the hospital, blood pressure was 142/77, heart rate was 92, respiratory rate was 19, oxygen saturation was 93 % on room air, temperature was 37.2 degrees centigrade. Her weight was 50.8 kg for a body mass index of 18.1. GENERAL: This is a thin woman, lying in bed in a hospital gown, generally cooperative and in no acute distress. She has periodic grimacing and denies any pain with the grimacing. HEENT: Extraocular movements are intact. Pupils are equal, round, and reactive to light. Mucous membranes are moist. Dentition is in good condition. She has an uncrowded airway, Mallampati class 1. There are no oropharyngeal mucosal lesions and no posterior oropharyngeal mucus. NECK: Supple. HEART: There is a regular rate and rhythm with no murmurs, rubs, or gallops. LUNGS: Clear to auscultation bilaterally. ABDOMEN: Soft, nontender, nondistended with normoactive bowel sounds and no hepatosplenomegaly. EXTREMITIES: There is no cyanosis or clubbing. There is trace edema over the feet bilaterally. Radial and dorsalis pedis pulses are 2+ bilaterally. NEUROLOGIC: She is alert. She is oriented to self only. Cranial nerves 2-12 are grossly intact. There is no focal weakness. Sensation appears to be intact to light touch. Deep tendon reflexes are 2+ bilaterally at the biceps, patellar, and Achilles tendons except absent at the right Achilles tendon. Plantar reflexes upgoing on the left and indeterminate on the right. She needs assistance to arise to seated from supine. SKIN: There is a 1 cm stage II decubitus ulcer over the left sacral area. CURRENT LEVEL OF FUNCTION PER THE PRE-ADMISSION SCREEN: Regarding diet, feeding , and swallowing, she was on dysphagia 2 diet with thin liquids. She had supervision for eating with limited bite size and limited distractions. She was upright with all oral intake. Regarding grooming, she needed maximal assistance to brush her hair. She was able to use the left arm but was only able to get the brush to her forehead on the left. Dressing required total assistance to don socks. She had poor trunk control. Toileting required total assistance after incontinence. She was incontinent of bladder. Bed mobility required moderate to maximal assistance of 2. Transfers were done with moderate assist of 2 using a Steady. Regarding balance, seated required moderate to maximal assist, and standing required maximal assist of 2. Endurance was fair. She was able to ambulate 6 feet with maximal assist of 2, doing hand-held assistance. Regarding communication, she was noted to have language of confusion. Regarding cognition, she had a flat affect with moderate to severe impairments in memory and orientation. Lower extremity strength and range of motion were noted to be normal as were upper extremity strength and range of motion. On exam today, she appears to be improved in terms of bed mobility, requiring moderate assistance of 1 person. Otherwise, there are no changes from the preadmission screen. IMPRESSION: This is a 67-year-old woman who suffered an aneurysmal rupture and subarachnoid hemorrhage of the anterior communicating artery. She underwent coil embolization of the anterior communicating artery aneurysm on 06/14/2017. There was an aneurysm with no irregularities seen approximately 2 x 4 mm of the cavernous segment of the right internal carotid artery. After the procedure, she remained in the intensive care unit where she had delirium and was pulling at lines. She was treated with Precedex for this. Eventually, the Precedex could be reduced and discontinued. She remained somnolent and was begun on methylphenidate. There was consideration of placing a lumbar drain, but this was not done. Blood pressure was adequately controlled with initially IV nicardipine and subsequently p.o. nimodipine. She was able to cooperate with therapies. She was treated with levetiracetam for seizure prophylaxis. She was continued on levothyroxine. Ttreatment with amitriptyline, which she had been taking for sleep prior to her hospitalization, was resumed on 06/19/2017. Methylphenidate was begun on 06/22/2017. She arrives on the inpatient rehabilitation unit with continued delirium and language of confusion and disorientation as well as considerable debility. She is appropriate for inpatient rehabilitation where she will benefit from physical and occupational therapies to optimize her mobility and activities of daily living as well as speech and language pathology regarding cognition, communication, and swallowing. She will benefit from the care of Nursing regarding the decubitus ulcer and skin integrity, fall risk, bowel and bladder, medication administration, and medication education. She will benefit from the care of a physician to monitor her blood pressures and wound healing regarding risk for infection and regarding any further evaluation which might be indicated for delirium depending on how she progresses. Her goal is to complete a rehabilitation stay and then return home with family and supportive services. For a safe discharge it is expected that she will achieve independence with bed mobility. Pt will be modified independent for eating and grooming. Pt may require supervision and/or assistance for transfers , dressing, bathing and ambulation for short distances with the least restrictive device. Pt will be able to negotiate a w/c for household distances if needed. Pt will be able to follow simple commands consistently and will demonstrate improved ability to communicate thoughts/words. She will have therapy with Physical Therapy, Occupational Therapy, and Speech and Language Pathology on a modified schedule for 30-60 minutes per day for each discipline on 7 days per week to total 15 hours per week or more. Her expected duration of stay is 21-28 days. It is anticipated that upon discharge , she will continue to benefit from home health services including Nursing, Speech and Language Pathology, a nurse's aide, Occupational Therapy, and Physical Therapy. She will also benefit from a stroke support group. PLAN: 1. Debility, status post subarachnoid hemorrhage due to anterior communicating artery aneurysm, status post coiling on 06/14/2017. PT and OT to optimize mobility and functional status towards independence with bed mobility, modified independence for eating and grooming, and supervision or assistance level for transfers, dressing, bathing, and ambulation with the least restrictive device. 2. Cognitive impairment. Consider further evaluation for possible delirium. Unclear role of high-dose amitriptyline. Consider tapering. Will first observe sleep-wake cycle. Will have evaluation by Speech and Language Pathology. 3. Dysphagia. Evaluation and management per Speech and Language Pathology. Continue dysphagia 2 diet and thin liquids. Assist for eating. 4. Prevention of vasospasm. Continue nimodipine as ordered per Neurosurgery for 21 days after hospital discharge or through July 16, 2017. Monitor closely for any signs or symptoms of neurologic deterioration. 5. Somnolence has been treated with methylphenidate. It is unclear whether her periodic grimacing may be an abnormal involuntary movement related to the use of methylphenidate. If it persists and especially if it interferes with her function with therapies or with eating, consider discontinuation of methylphenidate and would have a low threshold to initiate amantadine as a neurostimulant. 6. Hypothyroidism. Continue levothyroxine. 7. Risk for seizures. Continue levetiracetam. 8. Underweight status. There will be a bushing and broach operator consult. Per hospital notes , she was not considered to be malnourished during her hospital stay. 9. Prophylaxis. Continue subcutaneous heparin until her mobility improves considerably. FOLLOWUP: Her primary care provider is Dr. Kp Roger, and she has followup scheduled with Dr. Henrik Curry of Neurosurgery in 2 weeks. This followup may be postponed until after her hospital discharge. It will be determined in discussion with Neurosurgery whether she should have a repeat head CT sooner than that. /[id number]/MODL MTDD
[2017-06-25] MEDS ORDERED: BISACODYL 10 MG SUPP PR PRN (14:46)
--- NOTE | 2017-06-25 14:53 | WOCRNPDOC ---
WOCRN Advanced Assessment Note - Skin Integrity Problem, Advanced Assess Coccyx Dressing Type: Mepilex Border (Sacral dressing) Dressing Description: Intact Exudate Amount: None Exudate Characteristic(s): None Integumentary Issue Intervention: Visualized Under Dressing Prerna Wound Tissue: Blanching, Erythema Prerna Wound Swelling: None Wound Bed Color: Red Wound Bed Constitution: Red/[place] - Non Granular Tissue Site Odor: None Site Measurement - Head-to-Toe Length X Width X Depth (cm): 0.4cmx0.3cmx0.1cm Pressure Injury Stage: Stage 2 Pressure Injury Present on Admit: No (hospital-acquired, from ICU) Skin Integrity Problem Comment: Discrete, partial-thickness opening noted directly over coccyx, appearance consistent w/ stage 2 pressure injury. Periwound skin is intact and blanching. Orders written for protective dressing, turns q2 side to side, off-loading chair cushion, and reposition in chair q1. Physician notified. milling general superintendent Karli present and apprised of orders.
[2017-06-25] MEDS: [UNRECOGNIZED DRUG - OTHER] PO SCH ×3 (15:28→21:14)
[2017-06-25] MEDS: POLYETHYLENE GLYCOL 3350 17 GM PKT PO SCH (16:43)
--- NOTE | 2017-06-25 16:54 | PDOREHIP ---
Admission [facility] - Admission - 3 Day Assessment Period Admission Date/Day 1: 06/25/17 Day 2: 06/26/17 Day 3: 06/27/17 - Active Diagnoses Comorbidities and Co-existing Conditions at Admission: 90416. None of the Above - Skin Conditions Unhealed Pressure Ulcer (1 or more/Stage 1 or >)-Admission: 1. Yes # Stage 2 Pressure Ulcers-Admission: 1 (Coccyx)
[2017-06-25] MEDS ORDERED: ACETAMINOPHEN 325 MG TAB PO SCH (18:00)
[2017-06-25] MEDS: levETIRAcetam 250 MG TAB PO SCH (20:30)
[2017-06-25] MEDS: SENNOSIDES/DOCUSATE SODIUM TAB PO SCH (20:30)
[2017-06-25] MEDS: HEPARIN 5,000 UNIT/0.5 ML SYR SC SCH (20:32)
[2017-06-25] MEDS ORDERED: AMITRIPTYLINE HCL 100 MG TAB PO SCH (21:00)
[2017-06-25] MEDS: ACETAMINOPHEN 500 MG TAB PO SCH (21:13)
[2017-06-26] MEDS: [UNRECOGNIZED DRUG - OTHER] PO SCH ×6 (01:03→22:10)
[2017-06-26] MEDS: ACETAMINOPHEN 500 MG TAB PO SCH ×3 (05:47→21:48)
[2017-06-26] MEDS: LEVOTHYROXINE 112 MCG TAB PO SCH (05:47)
[2017-06-26] MEDS: HEPARIN 5,000 UNIT/0.5 ML SYR SC SCH ×2 (08:13→21:48)
[2017-06-26 08:15] LABS: PLATELET COUNT 220 10^3/uL (150-400)
[2017-06-26] MEDS: POLYETHYLENE GLYCOL 3350 17 GM PKT PO SCH (08:45)
[2017-06-26] MEDS: levETIRAcetam 250 MG TAB PO SCH ×2 (08:46→21:46)
[2017-06-26] MEDS: SENNOSIDES/DOCUSATE SODIUM TAB PO SCH ×2 (08:46→21:45)
--- NOTE | 2017-06-26 09:24 | SOAPPROG ---
SOAP Progress Note Assessment/Plan: Assessment: * Debility, status post subarachnoid hemorrhage due to anterior communicating artery aneurysm, status post coiling on 06/14/2017. PT and OT to optimize mobility and functional status towards independence with bed mobility, modified independence for eating and grooming, and supervision or assistance level for transfers, dressing, bathing, and ambulation with the least restrictive device. * Cognitive impairment. Will have evaluation by Speech and Language Pathology. * Dysphagia. Evaluation and management per Speech and Language Pathology. Continue dysphagia 2 diet and thin liquids. Assist for eating. * Somnolence. Per son's report documented by nursing she typically has a more nocturnal schedule. Might benefit from initiating cares later in the morning. Will reduce amitriptyline 1 from 100 mg at HS to 50 mg at HS continue methylphenidate at 10 mg q.a.m. but consider increasing it to twice daily before breakfast and lunch or transitioning to amantadine. * Prevention of vasospasm. Continue nimodipine as ordered per Neurosurgery for 21 days after hospital discharge or through July 16, 2017. Monitor closely for any signs or symptoms of neurologic deterioration. * Hyponatremia, mild. Recheck 06/28/2017. * Hypertension. Continue nimodipine. Consider addition of 2nd agent, most likely Camron inhibitor or ARB as which hesitate regarding diuretic with unclear fluid status and is already on a calcium channel tad * Hypothyroidism. Continue levothyroxine. * Risk for seizures. Continue levetiracetam. * Underweight status. There will be a supercharger mechanic consult. Per hospital notes, she was not considered to be malnourished during her hospital stay. * Prophylaxis. Continue subcutaneous heparin until her mobility improves considerably. FOLLOWUP: Her primary care provider is Dr. Kp Roger. She has followup scheduled with Dr. Henrik Curry of Neurosurgery in 2 weeks. This followup may be postponed until after her hospital discharge. It will be determined in discussion with Neurosurgery whether she should have a repeat head CT sooner than that. 06/26/17 09:36 Subjective: No complaints. Very little verbal output. Objective: Vital Signs Temp Pulse Resp BP Pulse Ox 36.7 C 70 14 143/97 H 94 06/25/17 20:00 06/25/17 20:00 06/25/17 20:00 06/25/17 20:00 06/26/17 02:34 Laboratory Results 06/26/17 05:50 06/26/17 05:50 06/25/17 06/26/17 06/27/17 05:59 05:59 05:59 Intake Total 518 Balance 518 Physical Exam - Physical Exam General Appearance: WD/WN, alert, no apparent distress, thin Respiratory: normal breath sounds, decreased breath sounds, No crackles, No rhonchi, No wheezing Cardiac/Chest: regular rate, rhythm, edema (Trace bilateral pretibial left greater than right), No diastolic murmur, No systolic murmur Skin: normal color, warm/dry Neuro/Psych: normal mood/affect, other (Sleepy sitting up in wheelchair with OT present. Tends to fall forward in her seated posture. Inconsistently appropriate responses to commands.) ICD10 Worksheet Patient Problems: Problems Problem Status Onset Subarachnoid hemorrhage Acute
[2017-06-26] MEDS ORDERED: NON-FORMULARY NEW DRUG EACHEYE PRN (14:52)
[2017-06-26] MEDS ORDERED: CARBOXYMETHYLCELLULOSE 1% 0.4 ML DROPERETTE EACHEYE PRN (15:45)
[2017-06-26] MEDS ORDERED: PETROLAT,WHT/MIN OIL/SOD CHL 3.5 GM OPHT.OINT EACHEYE PRN (15:46)
[2017-06-26] MEDS: BETHANECHOL 10 MG TAB PO SCH (21:46)
[2017-06-26] MEDS: AMITRIPTYLINE HCL 100 MG TAB PO SCH (21:46)
[2017-06-27] MEDS: [UNRECOGNIZED DRUG - OTHER] PO SCH ×6 (01:22→22:19)
[2017-06-27] MEDS: LEVOTHYROXINE 112 MCG TAB PO SCH (06:24)
[2017-06-27] MEDS: BETHANECHOL 10 MG TAB PO SCH ×4 (06:24→19:47)
[2017-06-27] MEDS: ACETAMINOPHEN 500 MG TAB PO SCH ×3 (06:24→22:19)
[2017-06-27] MEDS: levETIRAcetam 250 MG TAB PO SCH ×2 (10:03→19:45)
[2017-06-27] MEDS: POLYETHYLENE GLYCOL 3350 17 GM PKT PO SCH (10:03)
[2017-06-27] MEDS: SENNOSIDES/DOCUSATE SODIUM TAB PO SCH ×2 (10:04→19:45)
[2017-06-27] MEDS: HEPARIN 5,000 UNIT/0.5 ML SYR SC SCH ×2 (10:04→19:47)
--- NOTE | 2017-06-27 12:12 | SOAPPROG ---
SOAP Progress Note Assessment/Plan: Assessment: 67-year-old woman status post anterior communicating artery aneurysm rupture and coiling, impairments in mobility and self-care as well as cognition. Today's update: Abdominal x-ray ordered for this morning will not be performed until this afternoon. Abdomen is nonacute, patient not experiencing any discomfort or nausea. Plan to recheck basic metabolic panel on Saturday for hyponatremia. Patient seems to be sleeping okay with decrease of amitriptyline , continue methylphenidate for today but consider switch to amantadine as discussed below. Continue bethanechol for urinary retention, acknowledging that the urinary retention is likely also related to constipation. Continue with gentle bowel program, obtain x-ray, consider more aggressive treatment if increasingly symptomatic. Remainder of medical plan below is relatively unchanged. A total of 25 min was spent on the floor in the care of the patient , the majority of which was spent on the counseling and coordination of care regarding bowel management strategies. 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 PT and OT to optimize mobility and functional status towards independence with bed mobility, modified independence for eating and grooming, and supervision or assistance level for transfers, dressing, bathing, and ambulation with the least restrictive device. * Cognitive impairment. Will have evaluation by Speech and Language Pathology. * Dysphagia. Evaluation and management per Speech and Language Pathology. Continue dysphagia 2 diet and thin liquids. Assist for eating. * Somnolence. Per son's report documented by nursing she typically has a more nocturnal schedule. Might benefit from initiating cares later in the morning. Continue reduced dose of amitriptyline at night, continue methylphenidate during the day. Consider transition to amantadine. * Prevention of vasospasm. Continue nimodipine as ordered per Neurosurgery for 21 days after hospital discharge. Monitor closely for any signs or symptoms of neurologic deterioration. * Hyponatremia, mild. Recheck 06/28/2017. * Hypertension. Continue nimodipine. Consider addition of 2nd agent, most likely Camron inhibitor or ARB as which hesitate regarding diuretic with unclear fluid status and is already on a calcium channel tad * Hypothyroidism. Continue levothyroxine. * Risk for seizures. Continue levetiracetam. * Underweight status. There will be a brand representative consult. Per hospital notes, she was not considered to be malnourished during her hospital stay. * Prophylaxis. Continue subcutaneous heparin until her mobility improves considerably. FOLLOWUP: Her primary care provider is Dr. Kp Roger. She has followup scheduled with Dr. Henrik Curry of Neurosurgery in 2 weeks. This followup may be postponed until after her hospital discharge. It will be determined in discussion with Neurosurgery whether she should have a repeat head CT sooner than that. 06/27/17 12:03 Subjective: Chief complaint: Constipation No acute events overnight. Patient endorses ongoing constipation, but denies any nausea or abdominal discomfort. No particular concerns from the patient today, though she is fairly disoriented. Nursing reports that she slept well, is a bit sleepy this morning, seems to not have abdominal pain or other discomfort. Patient denies any new shortness of breath or chest pain, no new numbness, tingling, or weakness. Objective: Vital Signs Temp Pulse Resp BP Pulse Ox 36.6 C 68 18 141/78 H 92 06/26/17 20:00 06/27/17 08:00 06/26/17 20:00 06/27/17 08:00 06/27/17 08:00 Laboratory Results 06/26/17 05:50 06/26/17 05:50 06/26/17 06/27/17 06/28/17 05:59 05:59 05:59 Intake Total 518 930 150 Output Total 2900 Balance 518 -1970 150 Physical Exam - Physical Exam General Appearance: alert, no apparent distress EENT: No scleral icterus (R), No scleral icterus (L) Respiratory: lungs clear, normal breath sounds, No respiratory distress, No accessory muscle use, No rales, No rhonchi, No wheezing Abdomen: non-tender, No soft (Slightly for), No pulsatile mass, No distended, No guarding, No mass, No rigid Skin: normal color, warm/dry, No cyanosis, No diaphoresis Extremities: No pedal edema, No calf tenderness, No swelling Neuro/Psych: alert, normal mood/affect, No oriented x 3 (Only to self, with multiple choice she could say she was in the hospital. She did not know the year or the date.) ICD10 Worksheet Patient Problems: Problems Problem Status Onset Subarachnoid hemorrhage Acute
[2017-06-27] MEDS ORDERED: MAGNESIUM CITRATE 300 ML BOTTLE PO ONE (17:30)
[2017-06-27] MEDS: AMITRIPTYLINE HCL 100 MG TAB PO SCH (19:46)
[2017-06-27] MEDS ORDERED: LACTULOSE 20 GM/30 ML UDCUP PO PRN (20:41)
[2017-06-27] MEDS: oxyCODONE IR 5 MG TAB PO PRN (21:34)
[2017-06-28] MEDS: [UNRECOGNIZED DRUG - OTHER] PO SCH ×4 (02:41→16:08)
[2017-06-28] MEDS: ACETAMINOPHEN 500 MG TAB PO SCH ×3 (05:31→22:12)
[2017-06-28] MEDS: LEVOTHYROXINE 112 MCG TAB PO SCH (05:31)
[2017-06-28] MEDS: BETHANECHOL 10 MG TAB PO SCH ×4 (05:32→20:42)
[2017-06-28] MEDS ORDERED: ALTEPLASE 2 MG VIAL IVP PRN (07:49)
[2017-06-28] MEDS ORDERED: NYSTATIN POWDER 15 GM BTL TP PRN (07:50)
[2017-06-28] MEDS: POLYETHYLENE GLYCOL 3350 17 GM PKT PO SCH (08:44)
[2017-06-28] MEDS: levETIRAcetam 250 MG TAB PO SCH ×2 (08:46→20:43)
[2017-06-28] MEDS: SENNOSIDES/DOCUSATE SODIUM TAB PO SCH ×2 (08:49→20:43)
[2017-06-28] MEDS: HEPARIN 5,000 UNIT/0.5 ML SYR SC SCH ×2 (08:51→20:43)
[2017-06-28] MEDS ORDERED: MAGNESIUM CITRATE 300 ML BOTTLE PO ONE ×2 (11:34→15:45)
[2017-06-28] MEDS ORDERED: AMITRIPTYLINE HCL 100 MG TAB PO SCH (11:34)
--- NOTE | 2017-06-28 11:35 | SOAPPROG ---
SOAP Progress Note Assessment/Plan: Assessment: Current level of function head CT result discussed with Neurosurgeon Dr. Curry, 06/28/2017. If she shows no improvement over next 1-2 days, plan to readmit to [facility] for lumbar drain to see if she has a response consistent with treatment of hydrocephalus. If so he would consider placing a ventriculoperitoneal shunt. 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 * Initial functional independence measure 24 on 06/28/2017. Requires maximal assistance for transfers and for wheelchair mobility. Grooming and hygiene from the wheelchair with minimal to moderate assist. Upper body dressing requires maximal assist and lower body dressing requires total assist. * Continue PT and OT to optimize mobility and functional status towards independence with bed mobility, modified independence for eating and grooming, and supervision or assistance level for transfers, dressing, bathing, and ambulation with the least restrictive device. * Cognitive impairment. * Severe deficits to attention, memory, executive function, initiation and persistence. * Does not call for assistance. * Head CT today, 06/28/2017, was unchanged, still with large ventricles.. * Continue Speech and Language Pathology. * Dysphagia. * Continue dysphagia 2 diet and thin liquids. Assist for eating. May have decreased ability to swallow since [facility] in the hospital on 06/21/2017. * Continue speech and language pathology. * Somnolence. Per son's report documented by nursing she typically has a more nocturnal schedule. Might benefit from initiating cares later in the morning. * Reduced amitriptyline from 100 mg at HS to 50 mg at HS on 06/26/2017. Still seems to be sleeping well. Reduced further to 25 mg at HS starting 06/28/2017. * Continue methylphenidate at 10 mg q.a.m. but consider increasing it to twice daily before breakfast and lunch or transitioning to amantadine. Await result of head CT. * Hypothyroidism. Continue levothyroxine. Check TSH 06/28/2017. * Decubitus ulcer. Continue pressure relief dressing and turning protocol. * Constipation. * Refractory to senna plus polyethylene glycol. Declined magnesium citrate yesterday, 06/27/2017. Took lactulose. * Has not had very much opiate medication so unlikely that methyl naltrexone would be helpful. * Still has contrast on abdominal x-ray from [facility] on 06/21/2017. * Continue senna, polyethylene glycol, and lactulose. Continue to attempt to administer magnesium citrate. * Urinary retention. * Increased bethanechol from 10 mg four times daily to 20 mg four times daily on 06/28/2017. * May improve if constipation resolved. * Initiate rehabilitation bladder protocol. * Prevention of vasospasm. Continue nimodipine as ordered per Neurosurgery for 21 days after hospital discharge or through July 16, 2017. Monitor closely for any signs or symptoms of neurologic deterioration. * Hyponatremia, resolved 06/28/2017. * Hypertension. Continue nimodipine. * Risk for seizures. Continue levetiracetam. * Underweight status. There will be a payment manager consult. Per hospital notes, she was not considered to be malnourished during her hospital stay. * Prophylaxis. Continue subcutaneous heparin until her mobility improves considerably. Attended staffing, 15 min. D/W case mgmt, payment manager, nursing, PT, OT, [employer]. Lives with who will be available as caregiver. Tentative discharge date set for 07/12/2017. FOLLOWUP: Her primary care provider is Dr. Kp Roger. She has followup scheduled with Dr. Henrik Curry of Neurosurgery in 2 weeks. This followup may be postponed until after her hospital discharge. 06/28/17 13:50 Subjective: No complaints. Denies pain, fevers, chills, cough, dyspnea. Feels she has a good appetite. No abdominal discomfort. Objective: Vital Signs Temp Pulse Resp BP Pulse Ox 36.6 C 94 16 117/84 H 98 06/28/17 08:00 06/28/17 08:00 06/28/17 08:00 06/28/17 08:00 06/28/17 08:00 Laboratory Results 06/26/17 05:50 06/28/17 05:45 06/27/17 06/28/17 06/29/17 05:59 05:59 05:59 Intake Total 930 1024 240 Output Total 2900 900 Balance -1970 124 240 - Time Spent With Patient Time Spent With Patient: Greater than 35 min floor time today, including more than 50% of time in coordination of care during staffing meeting and discussion with Neurosurgery, and counseling patient. Physical Exam - Physical Exam General Appearance: WD/WN, alert, no apparent distress, thin Respiratory: normal breath sounds, No crackles, No rhonchi, No wheezing Cardiac/Chest: regular rate, rhythm, No edema, No diastolic murmur, No systolic murmur Abdomen: normal bowel sounds, non-tender, soft, No distended Skin: normal color, warm/dry Neuro/Psych: alert, cognition abnormalities, No normal mood/affect (Sleepy, easily distracted), No oriented x 3 ICD10 Worksheet Patient Problems: Problems Problem Status Onset Subarachnoid hemorrhage Acute
[2017-06-28] MEDS: niMODipine 30 MG/0.9 ML UDL PO SCH ×3 (15:56→21:22)
[2017-06-28] MEDS: oxyCODONE IR 5 MG TAB PO PRN ×2 (16:40→22:16)
[2017-06-28] MEDS ORDERED: AMITRIPTYLINE HCL 25 MG TAB PO SCH (21:00)
[2017-06-29] MEDS: niMODipine 30 MG/0.9 ML UDL PO SCH ×5 (02:19→17:48)
[2017-06-29] MEDS: BETHANECHOL 10 MG TAB PO SCH ×3 (05:25→16:53)
[2017-06-29] MEDS: LEVOTHYROXINE 112 MCG TAB PO SCH (05:25)
[2017-06-29] MEDS: ACETAMINOPHEN 500 MG TAB PO SCH ×2 (05:26→14:09)
[2017-06-29 06:31] VITALS: BP 150/87
[2017-06-29] MEDS: POLYETHYLENE GLYCOL 3350 17 GM PKT PO SCH (09:13)
[2017-06-29] MEDS: SENNOSIDES/DOCUSATE SODIUM TAB PO SCH (09:14)
[2017-06-29] MEDS: levETIRAcetam 250 MG TAB PO SCH (09:15)
--- NOTE | 2017-06-29 10:03 | SOAPPROG ---
SOAP Progress Note Assessment/Plan: Assessment/Plan: Current level of function/ head CT results were discussed with Neurosurgeon Dr. Curry, 06/28/2017. If she shows no improvement over next 1-2 days, plan to readmit to [facility] drain to see if she has a response consistent with treatment of hydrocephalus. If so he would consider placing a ventriculoperitoneal shunt. 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 * Initial functional independence measure 24 on 06/28/2017. Requires maximal assistance for transfers and for wheelchair mobility. Grooming and hygiene from the wheelchair with minimal to moderate assist. Upper body dressing requires maximal assist and lower body dressing requires total assist. * Continue PT and OT to optimize mobility and functional status towards independence with bed mobility, modified independence for eating and grooming, and supervision or assistance level for transfers, dressing, bathing, and ambulation with the least restrictive device. * Cognitive impairment. * Severe deficits to attention, memory, executive function, initiation and persistence. * Does not call for assistance. * Head CT today, 06/28/2017, was unchanged, still with large ventricles.. * Continue Speech and Language Pathology. * Dysphagia. * Continue dysphagia 2 diet and thin liquids. Assist for eating. May have decreased ability to swallow since [facility] in the hospital on 06/21/2017. * Continue speech and language pathology. * Somnolence. Per son's report documented by nursing she typically has a more nocturnal schedule. Might benefit from initiating cares later in the morning. * Reduced amitriptyline from 100 mg at HS to 50 mg at HS on 06/26/2017. Still seems to be sleeping well. Reduced further to 25 mg at HS starting 06/28/2017. * Continue methylphenidate at 10 mg q.a.m. but consider increasing it to twice daily before breakfast and lunch or transitioning to amantadine. Await result of head CT. * Hypothyroidism. Continue levothyroxine. Check TSH 06/28/2017. * Decubitus ulcer. Continue pressure relief dressing and turning protocol. * Constipation. * Refractory to senna plus polyethylene glycol. Declined magnesium citrate yesterday, 06/27/2017. Took lactulose. * Has not had very much opiate medication so unlikely that methyl naltrexone would be helpful. * Still has contrast on abdominal x-ray from [facility] on 06/21/2017. * Continue senna, polyethylene glycol, and lactulose. Continue to attempt to administer magnesium citrate. * Urinary retention. * Increased bethanechol from 10 mg four times daily to 20 mg four times daily on 06/28/2017. * May improve if constipation resolved. * Initiate rehabilitation bladder protocol. * Prevention of vasospasm. Continue nimodipine as ordered per Neurosurgery for 21 days after hospital discharge or through July 16, 2017. Monitor closely for any signs or symptoms of neurologic deterioration. * Hyponatremia, resolved 06/28/2017. * Hypertension. Continue nimodipine. * Risk for seizures. Continue levetiracetam. * Underweight status. There will be a press operator [employer] print [employer] consult. Per hospital notes, she was not considered to be malnourished during her hospital stay. * Prophylaxis. Continue subcutaneous heparin until her mobility improves considerably. FOLLOWUP: Her primary care provider is Dr. Kp Roger. She has followup scheduled with Dr. Henrik Curry of Neurosurgery in 2 weeks. This followup may be postponed until after her hospital discharge. Today's Plan: Pt without a bowel movement for several days - potentially x1 week? Will add soap suds enema to perform today after her therapies. If no results can be followed by a suppository to promote bowel movement. Has several oral meds available. Pending results may need to repeat again tomorrow with MOM or other. Increased her Synthroid based on the labs from yesterday 06/29/17 10:00 Subjective: Doing well today - not having any pain - no complaining of any stomach discomfort. Feels a little tired but overall no fevers/chills. sleeping well at night. Objective: Vital Signs Temp Pulse Resp BP Pulse Ox 36.6 C 75 14 150/87 H 97 06/29/17 06:30 06/29/17 06:30 06/29/17 06:30 06/29/17 06:30 06/29/17 06:30 Laboratory Results 06/26/17 05:50 06/28/17 05:45 06/28/17 06/29/17 06/30/17 05:59 05:59 05:59 Intake Total 1024 590 Output Total 900 1725 Balance 124 -1135 Physical Exam - Physical Exam General Appearance: alert, no apparent distress EENT: PERRL/EOMI Respiratory: lungs clear Cardiac/Chest: regular rate, rhythm Abdomen: non-tender, soft Skin: normal color Neuro/Psych: alert, normal mood/affect ICD10 Worksheet Patient Problems: Problems Problem Status Onset Subarachnoid hemorrhage Acute
[2017-06-29] MEDS: HEPARIN 5,000 UNIT/0.5 ML SYR SC SCH (10:04)
[2017-06-30] MEDS ORDERED: LEVOTHYROXINE 125 MCG TAB PO SCH (06:00)
--- NOTE | 2017-07-03 15:16 | PDOREHIP ---
Admission [facility] - Admission - 3 Day Assessment Period Admission Date/Day 1: 06/25/17 Day 2: 06/26/17 Day 3: 06/27/17 Discharge [facility] - Discharge - 3 Day Assessment Period 2 Days Prior to Anticipated Discharge Date: 07/10/17 1 Day Prior to Anticipated Discharge Date: 07/11/17 Anticipated Discharge Date: 07/12/17 - Discharge Skin Conditions Unhealed Pressure Ulcer (1 or more/Stage 1 or >)-Discharge: 1. Yes # Stage 2 Pressure Ulcers-Discharge: 1 (coccyx)
--- NOTE | 2017-07-03 16:32 | GDS ---
[f rep st] DISCHARGE SUMMARY CONSULTATIONS: There were none. PROCEDURES: There were none. COMPLICATIONS: She suffered a fall. HISTORY AND HOSPITAL COURSE: This patient was admitted from 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 Hospital stay was complicated by agitation and confusion, and she was treated with Precedex for part of the time. She was begun on levetiracetam for seizure prophylaxis, a nd she was treated with nimodipine for prevention of cerebral vasospasm. She had somnolence and was b egun on methylphenidate, and when medically stable, she was transferred to inpatient rehabilitation. She had minimal improvement during her rehabilitation stay. She was very debilitated, with an initial functional independence measure of 24 on 06/28/2017. She was requiring maximal assistance for transf ers and for wheelchair mobility. Grooming and hygiene were done from the wheelchair with minimal to m oderate assist. Upper body dressing required maximal assist, and lower body dressing required total a ssist. She also had cognitive impairment with severe deficits to attention, memory, executive functio n, initiation and persistence. She had dysphagia and was on a dysphagia 2 diet with thin liquids. Due to somnolence and cognitive issues, her amitriptyline was reduced initially from 100 mg at h.s. to 5 0 mg at h.s. and subsequently to 25 mg at h.s. starting on 06/28/2017. With her reduced level of func tion and somnolence, a TSH was checked on 06/28/2017, and it was found to be elevated in the 30s. On 06/29/2017, she had a fall and was sent to the emergency department for a head CT. The head CT was un changed from the one done the day prior. She continued to have enlarged ventricles, which had been se en on brain imaging while she was in the hospital. Given her lack of progress in therapies, she was t hen admitted to the hospital for consideration of large volume lumbar puncture to rule out normal-pre ssure hydrocephalus. DISCHARGE PLAN: Condition upon discharge is fair. ACTIVITY: She needs assistance with all activities of daily living and mobility tasks. DIET: Regular, dysphagia 2 diet and thin liquids. MEDICATIONS: 1. Nimodipine 60 mg p.o. q.4 hours. 2. Polyethylene glycol 17 g p.o. daily. 3. Bisacodyl suppository 10 mg daily p.r.n. 4. Acetaminophen 650 mg p.o. q.6 hours. 5. Amitriptyline 25 mg p.o. q.h.s. 6. Heparin 5000 units subcutaneous b.i.d. 7. Levetiracetam 750 mg p.o. b.i.d. 8. Senna/docusate 1-2 tabs p.o. b.i.d. 9. Levothyroxine 125 mcg p.o. daily. 10. Methylphenidate 10 mg p.o. daily. 11. Refresh eyedrops p.r.n. 12. Refresh PM ointment p.r.n. 13. Oxycodone 2.5-10 mg p.o. q.3 hours p.r.n. 14. Bethanechol 20 mg p.o. q.i.d. 15. Lactulose 20 g p.o. q.h.s. p.r.n. ISSUES TO BE ADDRESSED AT FOLLOWUP: She will likely have large volume lumbar puncture to assess for response that would be consistent with hydrocephalus. OTHER FOLLOWUP PLANS: She will be taken care of by the hospitalist team at [facility]. /[id number]/MODL
== END 2017-06-29 19:05 | disposition still patient (30) | DRG 949 ==
LOC: BREH 06-25 12:17
PROVIDERS: ADMIT Internal Medicine; ATTEND Internal Medicine
PROC: F08Z7ZZ Vocational Activities and Functional Community or Work Reintegration Skills Treatment (ICD-10-PCS; principal; 2017-06-25)
PROC: F0636ZZ Communicative/Cognitive Integration Skills Treatment of Neurological System - Whole Body (ICD-10-PCS; principal; 2017-06-25)
PROC: F07M3ZZ Motor Function Treatment of Musculoskeletal System - Whole Body (ICD-10-PCS; principal; 2017-06-25)
DX: Z48.812 Encounter for surgical aftercare following surgery on the circulatory system (principal); G91.9 Hydrocephalus, unspecified; E87.1 Hypo-osmolality and hyponatremia; G31.84 Mild cognitive impairment of uncertain or unknown etiology; R13.10 Dysphagia, unspecified; R40.0 Somnolence; E03.9 Hypothyroidism, unspecified; R63.6 Underweight; L89.152 Pressure ulcer of sacral region, stage 2; R33.9 Retention of urine, unspecified; K59.00 Constipation, unspecified; I10 Essential (primary) hypertension
CPT/HCPCS: 92507-GN; 92522-GN; 92526-GN; 92610-GN; 97112-GP; 97162-GP; 97167-GO; 97530-GO; 97530-GP; 97535-GO; J1644

== ENCOUNTER 2017-06-29 16:53 | Inpatient (IN) | payer OTHER ==
--- NOTE | 2017-06-29 17:20 | EDPHY ---
H & P Stated Complaint: fell during a transfer from a standing position. laceration to right face Time Seen by Provider: 06/29/17 17:06 HPI/ROS: CHIEF COMPLAINT: Head injury HISTORY OF PRESENT ILLNESS: 67-year-old female with medical history significant for the subarachnoid hemorrhage, coiling of intracranial aneurysm, nontraumatic brain dysfunction, followed by Dr. Dru Curry, currently at [facility] inpatient rehabilitation unit at [place]. Today while at the inpatient rehabilitation unit she was being transferred and fell impacting her right frontal region sustaining laceration. She was sent to the emergency department for evaluation. This was not a syncopal episode. No seizure activity. REVIEW OF SYSTEMS: A ten point review of systems was performed and is negative with the exception of the items mentioned in the HPI PAST MEDICAL & SURGICAL HISTORY: Subarachnoid hemorrhage, intracranial aneurysm hydrocephaly. SOCIAL HISTORY:history of tobacco abuse PHYSICAL EXAM 1) GENERAL: Well-developed, well-nourished, alert and oriented. Appears to be in no acute distress. Answering questions appropriately. 2) HEAD: Normocephalic, right frontal 2 cm laceration 3) HEENT: Pupils equal, round, reactive to light bilaterally. Negative [place]. Nasopharynx, oropharynx, clear. No deformity or angulation of nose. No septal hematoma. No rhinorrhea. No oral trauma. Ears bilaterally with normal tympanic membranes. No hemotympanum. No fluid or blood in the external auditory canal. No raccoon eyes. No Chiu sign. Teeth are normally aligned with no gross malocclusion, TMJ bilaterally nontender, facial bones nontender including the zygomatic arch, maxilla mandible. 4) NECK: Cervical collar is on.Cervical collar is removed while holding inline traction and patient is unable to completely differentiate between true midline pain versus just lateral of midline pain.Cervical collar is replaced at that point. 5) LUNGS: Clear to auscultation bilaterally, no wheezes, no rhonchi, no retractions. No obvious signs of trauma. No chest wall pain. No flaring, no grunting. Moving symmetrically. No crepitus. 6) HEART: [Regular rate and rhythm, 7) ABDOMEN: No guarding, no rebound, no focal tenderness, no peritoneal signs, no signs of trauma, no ecchymosis 8) MUSCULOSKELETAL: Moving all extremities, no focal areas of tenderness, no obvious trauma. 9) BACK: Patient logrolled while holding inline traction.No midline vertebral tenderness, no fluctuance, no step-off, no obvious trauma, no visual or palpable abnormality. 10) SKIN: right frontal laceration DIFFERENTIAL DIAGNOSIS: Not necessarily in any particular order, my differential diagnosis includes, but is not limited to, concussion, skull fracture, intraparenchymal contusion, subarachnoid, subdural and epidural hematoma. The patient understands that this diagnosis is provisional and can never be 100% accurate. - Personal History Current Tetanus/Diphtheria Vaccine: Unsure Current Tetanus Diphtheria and Acellular Pertussis (TDAP): Unsure - Medical/Surgical History Hx Asthma: No Hx Chronic Respiratory Disease: No Hx Diabetes: No Hx Cardiac Disease: No Hx Renal Disease: No Hx Cirrhosis: No Hx Alcoholism: No Hx HIV/AIDS: No Hx Splenectomy or Spleen Trauma: No Other PMH: confused and falling at home, asphasic,. hypothyroid, chronic pain , fibromyalgia, denerative back disease, hysterectomy 1980s, rheumatic fever childhood, prolapsed rectum - Social History Smoking Status: Current every day smoker Constitutional: Initial Vital Signs Temperature (C) 36.8 C 06/29/17 17:00 Heart Rate 68 06/29/17 17:00 Respiratory Rate 16 06/29/17 17:00 Blood Pressure 152/97 H 06/29/17 17:00 O2 Sat (%) 95 06/29/17 17:00 O2 Delivery Mode Room Air Allergies/Adverse Reactions: No Allergies [NKDA] Allergy (Verified 06/29/17 17:00) Home Medications: Medication Instructions Recorded Amitriptyline HCl [Elavil 100 MG 100 mg PO HS 06/13/17 (*)] Levothyroxine [Synthroid 112 mcg 112 mcg PO DAILY06 06/13/17 (*)] Acetaminophen [Tylenol 325mg (*)] 650 mg PO Q6HRS tab 06/25/17 Heparin [Heparin SC 5000 unit/0.5 5,000 unit SC BID syr 06/25/17 ml (*)] levETIRAcetam [Keppra 250 mg (*)] 750 mg PO BID #60 tab 06/25/17 methYLPHENIDATE HCL [Ritalin 10mg 10 mg PO DAILY #30 tab 06/25/17 (*)] niMODipine [Nimotop] 60 mg PO Q4H #90 udl 06/25/17 Bethanechol [Urecholine (*)] 20 mg PO ACHS 06/29/17 Bisacodyl [Magic Bullet 10 mg] 10 mg DE DAILY PRN 06/29/17 Carboxymethylcellulose 1% [Refresh 1 drop EACHEYE PRN PRN 06/29/17 Celluvisc (*)] Lactulose 20 gm PO HS PRN 06/29/17 Nystatin Powder [Mycostatin Powder 1 wallace TP BID PRN 06/29/17 (RX)] Petrolat,Wht/Min Oil/Sod Chl 1 wallace EACHEYE HS PRN 06/29/17 [Refresh P.m. Ointment] Polyethylene Glycol 3350 [Miralax 17 gm PO DAILY 06/29/17 17 gm (*)] Sennosides/Docusate Sodium 1 - 2 tab PO BID PRN 06/29/17 [Senokot-S] oxyCODONE IR [Oxycodone Ir (*)] 2.5 - 10 mg PO Q3 PRN 06/29/17 Medical Decision Making - Diagnostics Imaging Results: Imaging Impressions Cervical Spine CT 06/29/17 17:15 Impression: There is no acute intracranial abnormality identified on this unenhanced CT evaluation, or significant change compared to yesterday's study. UNENHANCED CT SCAN OF THE CERVICAL SPINE Technique: A multidetector unenhanced helical CT scan was obtained from the clivus caudally through the upper thoracic spine, with images reformatted at 1.50 mm increments, and are reviewed in soft tissue, bone, and lung windows. Parasagittal and paracoronal reconstructed images are reviewed on the workstation. The DFOV is 14.6 cm. A dose reduction protocol was used. Findings: There is a mild dextrocervical scoliosis and there is straightening of the normal some cervical lordosis, suggestive of some underlying muscle spasm. The vertebral body heights are maintained. There is 3.5 mm of C4 anterolisthesis above C5. The posterior alignment is otherwise unremarkable. There is no contrast acute fracture or facet malalignment. The interspinous distances are appropriate. There is narrowing of the predental space on a degenerative basis. The atlantoaxial alignment is maintained. The visualized prevertebral soft tissues are unremarkable, as are the lung apices. At the C1-C2 level, there is a aforementioned narrowing of the predental space with some circumferential ligamentous calcification seen dorsal to the tip of the dens. There is still an adequate AP canal diameter. At the C2-C3 level, there is no focal disk herniation, canal stenosis, or neural foraminal impingement. At the C3-C4 level, there is a small dorsal disk osteophyte complex resulting in mild central canal stenosis. There is moderate bilateral facet hypertrophy. There is mild uncovertebral degenerative spondylosis resulting in mild-to- moderate left neural foraminal stenosis. The right neural foramen remains patent. At the C4-C5 level, there is the aforementioned degenerative anterolisthesis. There is moderate right and severe left facet hypertrophy. Uncovertebral degenerative spondylosis results in severe left neural foraminal stenosis and minimal right neural foraminal stenosis. There is no significant central canal stenosis. At the C5-C6 level, there is moderate degenerative disk space narrowing. There is moderate bilateral facet hypertrophy. Uncovertebral degenerative spondylosis results in moderate right neural foraminal stenosis. The left neural foramen and central canal remain patent. At the C6-C7 level, there is severe degenerative disk space narrowing. There are large ventral traction osteophytes and there is a dorsal disk osteophyte complex, resulting in moderate central canal stenosis with an AP diameter of 9.0 mm. Uncovertebral degenerative spondylosis and facet hypertrophy result in moderate bilateral neural foraminal stenoses. The C7-T1 level is within normal limits. The T1-T2 and T2-T3 levels demonstrate bilateral facet degenerative hypertrophic changes. Impression: Multilevel degenerative changes, as-detailed, with no acute fracture observed. If there is further clinical concern regarding the patient's symptoms, correlative MR imaging could be considered, if otherwise not contraindicated. Findings were discussed with Mike Ervin PA-C at 17:58, on 06/29/2017. Head CT 06/29/17 17:15 Impression: There is no acute intracranial abnormality identified on this unenhanced CT evaluation, or significant change compared to yesterday's study. UNENHANCED CT SCAN OF THE CERVICAL SPINE Technique: A multidetector unenhanced helical CT scan was obtained from the clivus caudally through the upper thoracic spine, with images reformatted at 1.50 mm increments, and are reviewed in soft tissue, bone, and lung windows. Parasagittal and paracoronal reconstructed images are reviewed on the workstation. The DFOV is 14.6 cm. A dose reduction protocol was used. Findings: There is a mild dextrocervical scoliosis and there is straightening of the normal some cervical lordosis, suggestive of some underlying muscle spasm. The vertebral body heights are maintained. There is 3.5 mm of C4 anterolisthesis above C5. The posterior alignment is otherwise unremarkable. There is no contrast acute fracture or facet malalignment. The interspinous distances are appropriate. There is narrowing of the predental space on a degenerative basis. The atlantoaxial alignment is maintained. The visualized prevertebral soft tissues are unremarkable, as are the lung apices. At the C1-C2 level, there is a aforementioned narrowing of the predental space with some circumferential ligamentous calcification seen dorsal to the tip of the dens. There is still an adequate AP canal diameter. At the C2-C3 level, there is no focal disk herniation, canal stenosis, or neural foraminal impingement. At the C3-C4 level, there is a small dorsal disk osteophyte complex resulting in mild central canal stenosis. There is moderate bilateral facet hypertrophy. There is mild uncovertebral degenerative spondylosis resulting in mild-to- moderate left neural foraminal stenosis. The right neural foramen remains patent. At the C4-C5 level, there is the aforementioned degenerative anterolisthesis. There is moderate right and severe left facet hypertrophy. Uncovertebral degenerative spondylosis results in severe left neural foraminal stenosis and minimal right neural foraminal stenosis. There is no significant central canal stenosis. At the C5-C6 level, there is moderate degenerative disk space narrowing. There is moderate bilateral facet hypertrophy. Uncovertebral degenerative spondylosis results in moderate right neural foraminal stenosis. The left neural foramen and central canal remain patent. At the C6-C7 level, there is severe degenerative disk space narrowing. There are large ventral traction osteophytes and there is a dorsal disk osteophyte complex, resulting in moderate central canal stenosis with an AP diameter of 9.0 mm. Uncovertebral degenerative spondylosis and facet hypertrophy result in moderate bilateral neural foraminal stenoses. The C7-T1 level is within normal limits. The T1-T2 and T2-T3 levels demonstrate bilateral facet degenerative hypertrophic changes. Impression: Multilevel degenerative changes, as-detailed, with no acute fracture observed. If there is further clinical concern regarding the patient's symptoms, correlative MR imaging could be considered, if otherwise not contraindicated. Findings were discussed with Mike Ervin PA-C at 17:58, on 06/29/2017. Images reviewed by myself Procedures: Procedure: Laceration repair with tissue adhesive Verbal consent was obtained from the patient. The 2 cm laceration on the right frontal region. The wound was scrubbed and explored to its base with a gloved finger. No foreign body seen, no foreign bodies palpated. There were no deep structures involved. The wound was repaired with tissue adhesive. The procedure was performed by myself. Patient has been informed that scarring will occur, although every effort has been made to minimize this. ED Course/Re-evaluation: 5:20 p.m.: I reviewed the patient's medical records. Discussed case with secondary supervising physician Dr. Frederick in the ER. Will obtain CT imaging given the patient's history of anticoagulant use, visible head injury. 5:34 p.m.: I received a phone call from Dr. Henrik Curry Neurosurgery who is familiar with the patient's case. CT imaging still pending for acute injury. He is familiar with her ongoing hydrocephalus recommends that she be admitted to the step-down unit for evaluation for hydrocephalus under his care. He will be updated if there are signs of acute traumatic injury such as intracranial hemorrhage. 6:20 p.m.: Dr. Curry in the ER, has evaluated the patient the, has cleared remove the patient's cervical collar.. He has reviewed her CT imaging which is negative posttraumatic sequelae. He will plan on admitting her to the Step- Down Unit - Data Points Laboratory Results: Laboratory Results 06/29/17 17:48 06/29/17 17:48 06/29/17 06/29/17 06/29/17 17:48 17:48 17:48 WBC 4.67 10^3/uL 10^3/uL (3.80-9.50) RBC 3.27 10^6/uL L 10^6/uL (4.18-5.33) Hgb 11.0 g/dL L g/dL (12.6-16.3) Hct 32.2 % L % (38.0-47.0) MCV 98.5 fL fL (81.5-99.8) MCH 33.6 pg pg (27.9-34.1) MCHC 34.2 g/dL g/dL (32.4-36.7) RDW 13.6 % % (11.5-15.2) Plt Count 244 10^3/uL 10^3/uL (150-400) MPV 8.4 fL L fL (8.7-11.7) Neut % (Auto) 67.8 % % (39.3-74.2) Lymph % (Auto) 20.6 % % (15.0-45.0) [place] % (Auto) 9.0 % % (4.5-13.0) Eos % (Auto) 1.5 % % (0.6-7.6) Baso % (Auto) 0.9 % % (0.3-1.7) Nucleat RBC Rel Count 0.0 % % (0.0-0.2) Absolute Neuts (auto) 3.17 10^3/uL 10^3/uL (1.70-6.50) Absolute Lymphs (auto) 0.96 10^3/uL L 10^3/uL (1.00-3.00) Absolute Monos (auto) 0.42 10^3/uL 10^3/uL (0.30-0.80) Absolute Eos (auto) 0.07 10^3/uL 10^3/uL (0.03-0.40) Absolute Basos (auto) 0.04 10^3/uL 10^3/uL (0.02-0.10) Absolute Nucleated RBC 0.00 10^3/uL 10^3/uL (0-0.01) Immature Gran % 0.2 % % (0.0-1.1) Immature Gran # 0.01 10^3/uL 10^3/uL (0.00-0.10) PT 11.9 SEC L SEC (12.0-15.0) INR 0.86 (0.83-1.16) APTT 27.4 SEC SEC (23.0-38.0) Sodium 139 mEq/L mEq/L (135-145) Potassium 4.4 mEq/L mEq/L (3.5-5.2) Chloride 102 mEq/L mEq/L (97-110) Carbon Dioxide 27 mEq/l mEq/l (22-31) Anion Gap 10 mEq/L mEq/L (8-16) BUN 24 mg/dL H mg/dL (7-23) Creatinine 0.8 mg/dL mg/dL (0.6-1.0) Estimated GFR > 60 Glucose 89 mg/dL mg/dL (70-100) Calcium 9.2 mg/dL mg/dL (8.5-10.4) Medications Given: Heparin Sodium (Porcine) (Heparin Sc Injection) 5,000 unit SC Q8 ELVIA Stop: 12/26/17 21:59 Last Admin: 06/29/17 20:47 Dose: 5,000 unit Potassium Chloride/Sodium Chloride (Ns W/ 20 Kcl/L) 1,000 mls @ 75 mls/hr IV CONT ELVIA Stop: 12/26/17 19:29 Last Admin: 06/29/17 20:39 Dose: 1,000 mls Ibuprofen (Motrin) 400 mg PO Q4HRS PRN PRN Reason: Pain, Inflammatory Stop: 12/26/17 19:17 Last Admin: 06/29/17 20:44 Dose: 400 mg Departure - Departure Disposition: [facility] Inpatient Acute Clinical Impression: Hydrocephalus Forehead laceration Qualifiers: Encounter type: initial encounter Qualified Code(s): S01.81XA - Laceration without foreign body of other part of head, initial encounter Condition: Fair
[2017-06-29 17:56] LABS: PLATELET COUNT 244 10^3/uL (150-400)
[2017-06-29 18:05] LABS: INR 0.86 (0.83-1.16); PROTIME(PATIENT) 11.9 SEC (12.0-15.0)
[2017-06-29] MEDS ORDERED: SKIN ADHESIVE (DERMABOND) 1 EACH TP ONE (18:35)
[2017-06-29] MEDS ORDERED: ONDANSETRON 4 MG/2 ML VIAL IVP PRN (19:18)
[2017-06-29] MEDS ORDERED: ONDANSETRON DISINTEGRATING 4 MG TAB PO PRN (19:18)
[2017-06-29] MEDS ORDERED: NS W/ 20 KCl/L 1,000 ML IV SCH (19:30)
--- NOTE | 2017-06-29 19:44 | PDGENHP ---
History and Physical History and Physical: Consulting Physician: Dr. Curry, Neurosurgeon. Reason for consultation: management of medical issues, including uncontrolled hypothyroidism. Consulted service: Internal Medicine (hospitalist). Chief complaint: Altered mental status, generalized weakness History of present illness: Pt is a 67yo F who is being readmitted for altered mental status, generalized weakness, and a fall out of bed this AM. She was discharged to acute rehab 4 days ago after being hospitalized for SAH for 2.5 weeks. She had received coil embolization to the anterior communicating artery, monitored in the ICU x 10 days, and put on nimodipine. According to records, the patient was lethargic with a flat affect throughout her hospitalization. She was started on a stimulant, methylphenidate, during the last admission. Yesterday, her TSH was checked and was 30. Her medical records indicate she was on levothyroxine 112mcg daily upon discharge 4 days ago. She was also hyponatremic, but this has resolved in the last few days. Currently, patient denies pain. She admits to feeling abnormal, but is unable to discuss her symptoms. According to the RN, the patient is unable to stand on her own and requires maximal assistance to get to the bedside commode. Past medical history: Hypothyroidism, subarachnoid hemorrhage, cerebral ventriculomegaly, low back pain, fibromyalgia. Past surgical history: Hysterectomy, endovascular coil embolization of ruptured ETHAN aneurysm. Medications: Amitriptyline 100 mg at bedtime, Synthroid 125 mcg daily, nimodipine 60 mg q.4 hours, Tylenol as needed, ibuprofen as needed, [place] as needed Review of systems: 10 point review of systems was conducted and is negative except per HPI Allergies: NKA. Social history: +cigarette smoker. Drinks alcohol socially. Denies drug use. . Has 2 children. Family history: Breast cancer - mother. Physical exam: Vitals: Reviewed General: The patient is a female who is alert and in no acute distress. HEENT: normocephalic, extraocular movements intact, conjunctivae clear, no lesions on face. Mucous membranes dry. Neck: trachea midline, no visible masses, no external lesions. CV: RRR, no MRG. Resp: unlabored, CTAB no RRW. Abd: soft and nondistended. Nontender. Musculoskeletal: Reduced muscle tone/bulk. Neuro: cranial nerves II XII grossly intact. Intact gross motor and sensory function. +2 patellar reflex LLE, +0 DTR patellar reflex RLE. Oriented to place and person. Psych: appropriate mood/affect. Skin: No pallor. Heme/lymph: No peripheral edema. Labs: WBC 4.67, hemoglobin 11, platelet 244. Sodium 139 potassium 4.4 BUN 24 creatinine 0.8. TSH 30. Other Data: Head CT: No acute intracranial abnormality or change compared to prior study. C-spine CT: Multilevel degenerative changes with no acute pathology. Impression and plan: Encephalopathy Generalized weakness Severe debility -Likely has a metabolic component from hypothyroidism -check vit B12, folate, RPR to eval for other contributing causes -PT/OT Hypothyroidism, severe -Likely triggered by SAH, but also could have other causes (malabsorption - 2 /2 administration of levothyroxine with other meds, gastritis 2/2 NSAID and recent stress, use of antacids. Or could be from medication noncompliance). -Check AM cortisol to eval for adrenal insufficiency, which can also cause this. -Would rather avoid IV levothyroxine at this time, since pt has very high BP and recently had SAH/coil-- IV levothyroxine has potential CV adverse effects. -Pt has lethargy and AMS, but otherwise does not have additional findings of myxedema coma. She tolerates po and is compensated/stable. -Continue recently increased dose of levothyroxine 125mcg po daily. -Consider to switch to IV levothyroxine if patient decompensates or develops worsening symptoms. -Expect thyroid associated symptoms to improve after about 2 weeks of taking the medication on an empty stomach. Accelerated (uncontrolled) HTN Recent SAH, s/p coil embolization to ETHAN -prn enalapril and labetalol for HTN. -HTN could be a compensatory response to hypothyroidism. -Monitor VS. -Keppra to prevent seizures. Cerebral ventriculomegaly -stable. -NSG following. -Shunt not recommended currently. Anemia -no signs of acute bleeding. -likely a/w severe hypothyroidism -check vit B12. -monitor w/ daily CBC. Dysphagia -Resume speech therapy. -Feed w/ 1:1 assistance. -Dysphagia 2 diet - chopped/ground consistency, thin liquids. Urinary retention -has been on bethanechol in acute rehab. -may need bladder US. Constipation -continue bowel regimen. Sacral decubitus ulcer -present on admission. -wound care. Tobacco dependence -Recommend cessation counseling in the future. Fibromyalgia Code status - Full code. VTE ppx - recommend compression stockings or SCDs. Thank you, Dr. Curry, for the consultation! -
--- NOTE | 2017-06-29 20:07 | GHP ---
[f rep st] HISTORY AND PHYSICAL DATE OF ADMISSION: 06/29/2017 Patient was seen and evaluated at approximately 5:30 p.m. in the emergency department at [facility]. HISTORY OF PRESENT ILLNESS: The patient is a 67-year-old woman who was well known to me as she was d ischarged about 4 days ago to rehab after having a subarachnoid hemorrhage approximately 2-1/2 weeks ago from a ruptured anterior communicating artery aneurysm. This was treated with endovascular coili ng and had a good result. She was monitored in the ICU for 10 days after this with normal transcrani al Dopplers and improving exam. However, the patient was always slightly agitated and had a very fla ttened affect and poor desire for rehab. Ultimately, she was discharged to rehab at [facility] but has failed to progress while in rehab. She was sent back over on Saturday for a head CT, which again show s enlarged ventricles, but these are stable from previous. There is no sign of new strokes or other problem. Today, she apparently became agitated and fell out of bed, hitting her head on the floor. She did not lose consciousness. She was again sent over to the ER and a head CT reveals stable ventr icular size with no acute new bleed. Of note, she did have labs done yesterday which showed a thyroi d-stimulating hormone of over 30. She has been on thyroid hormone replacement, but it is unclear if this is being absorbed. Currently, she is bit agitated and somewhat disoriented, but otherwise does not have major complaints. REVIEW OF SYSTEMS: A 10-point review of systems is negative other than described above in the Histor y of Present Illness. PAST MEDICAL HISTORY: 1. Hypothyroidism. 2. Subarachnoid hemorrhage. 3. Cerebral ventriculomegaly. 4. Low back pain. PAST SURGICAL HISTORY: 1. Hysterectomy. 2. Endovascular coil embolization of ruptured anterior communicating artery aneurysm. FAMILY HISTORY: Positive for breast cancer in the mother. SOCIAL HISTORY: The patient was a current everyday smoker. She has not been smoking for the last 2- 1/2 weeks as she has been in the hospital or in rehab. She drinks only occasional social alcohol and has no record of illicit drug use. She is accompanied today by her . ALLERGIES: No known drug allergies. MEDICATIONS: Include: 1. Amitriptyline 100 mg at nighttime. 2. Synthroid 125 mcg daily. 3. She remains on nimodipine 60 q.4 hours. 4. Tylenol. 5. Ibuprofen. 6. P.r.n. Olin. PHYSICAL EXAM: VITAL SIGNS: Currently, she is afebrile with normal stable vital signs. GENERAL: S he is awake and alert and agitated. She is oriented to self, but thinks she is in [place] and think s it is Saturday when it is actually Saturday. She does recall her aneurysm and treatment and has flu ent speech but does appear to be confused and agitated currently. HEENT: Her pupils are equal, roun d, reactive, reactive to light. Extraocular movements are intact. Face symmetric. Tongue is midlin e. She has an abrasion over the right temporal region from the fall today. MUSCULOSKELETAL: She palacios s full 5/5 strength in all muscle groups in the upper and lower extremities and is moving them well. She has no neck pain but does have some low back pain with palpation. NEUROLOGIC: Sensation appear s to be grossly intact and deep tendon reflexes appear to be grossly normal. IMAGING REVIEW: See History of Present Illness. LABORATORY REVIEW: White count is 4.67, hemoglobin 11.0, hematocrit 32.2, platelet count is 244,000. INR is 0.86, PTT is 27.4. Sodium is 139, potassium 4.4, BUN is 24, creatinine 0.8, glucose 89, and as mentioned, her TSH was 30.4 yesterday. ASSESSMENT AND PLAN: The patient is a 67-year-old woman who had a recent subarachnoid hemorrhage fro m a ruptured anterior communicating artery aneurysm. She presents now with failure to thrive at [facility] and continued agitation. She had a fall out of bed today which caused minor trauma to the face, bu t no new intracranial bleeding. It is not clear to me at this time what may be causing her extreme a gitation and delirium. I wonder if it is possible that this may be extreme hypothyroidism as her TSH is 30, which is quite elevated. I have asked the hospitalist service to consult and commence the me tabolic workup for thyroid or other metabolic issues that could be causing this agitation. She does continue to have ventriculomegaly and we could try placing a lumbar drain to see if CSF diversion wou ld help. However, she certainly does not seem to have any of the signs or symptoms of hydrocephalus and is not complaining of headaches currently. She is agitated rather than lethargic which would rony d me to believe that hydrocephalus is unlikely to be the problem. Her head CTs remain stable. There fore, we will workup her metabolic issues. I did send a urinalysis and will send cultures if indicat ed as it is possible that an infectious source could lead to some of these current problems. We will continue physical and occupational therapy as well as speech and hopefully continue her rehab while she is here in the hospital and hopefully she can be discharged back to rehab in the near future. Jackie monson and her are happy with this plan and we will closely follow her while she is here in the [facility]. /[id number]/MODL
[2017-06-29] MEDS: IBUPROFEN 200 MG TAB PO PRN (20:44)
[2017-06-29] MEDS: HEPARIN 5,000 UNIT/0.5 ML SYR SC SCH (20:47)
--- NOTE | 2017-06-29 21:05 | PDMN ---
Medical Necessity Medical necessity: C/M review: est. > 2 MN LOS for eval and TX of acute and persistent failure to thrive at rehab, continuing agitation of unclear etiology requiring planned Hospitalist consult, Wound care consult, Dietary consult, ongoing IV fluids, acute inpt PT/OT/ST, comorbid hospitalization for subarachnoid hemorrhage 2 1/2 weeks ago from a ruptured anterior communicating artery aneurysm treated with endovascular coiling with a good result, patient was monitored in ICU for 10 days after this procedure with normal transcranial Dopplers and improving exam, patient was always slightly agitated, has a very flattened affect and poor desire for rehab, patient was discharged to [facility] Inpatient Rehab but has failed to progress while in rehab, 06/28/[address] again showed enlarged ventricles which are stable from previous, 06/29/2017 patient became agitated and fell out of bed hitting her head on the floor, no loss of consciousness, history of hypothyroidism, cerebral ventriculomegaly, low back pain per Neurosurgery H/P.
[2017-06-29] MEDS ORDERED: PETROLAT,WHT/MIN OIL/SOD CHL 3.5 GM OPHT.OINT EACHEYE PRN (22:56)
[2017-06-29] MEDS ORDERED: NYSTATIN POWDER 15 GM BTL TP PRN (22:56)
[2017-06-29] MEDS ORDERED: BISACODYL 10 MG SUPP PR PRN (22:56)
[2017-06-29] MEDS ORDERED: SENNOSIDES/DOCUSATE SODIUM TAB PO PRN (22:56)
[2017-06-29] MEDS ORDERED: CARBOXYMETHYLCELLULOSE 1% 0.4 ML DROPERETTE EACHEYE PRN (22:56)
[2017-06-29] MEDS ORDERED: LACTULOSE 20 GM/30 ML UDCUP PO PRN (22:56)
[2017-06-29] MEDS ORDERED: oxyCODONE IR 5 MG TAB PO PRN (22:56)
[2017-06-29] MEDS ORDERED: [UNRECOGNIZED DRUG - OTHER] PO SCH (23:00)
[2017-06-29] MEDS ORDERED: ENALAPRILAT DIHYDRATE 1.25 MG/ML VIAL IVP PRN (23:18)
[2017-06-29] MEDS ORDERED: LABETALOL HCL 5 MG/ML 20 ML MDV IVP PRN (23:32)
[2017-06-29] MEDS ORDERED: niMODipine 30 MG/0.9 ML UDL PO SCH (23:58)
[2017-06-30] MEDS ORDERED: METOPROLOL TARTRATE 5 MG/5 ML INJ IVP SCH
[2017-06-30] MEDS: HYDROCODONE/APAP 5/325 TAB PO PRN ×2 (00:25→14:36)
[2017-06-30] MEDS: niMODipine 30 MG/0.9 ML UDL PO SCH ×6 (00:25→21:26)
[2017-06-30] MEDS: HEPARIN 5,000 UNIT/0.5 ML SYR SC SCH ×3 (05:10→21:26)
[2017-06-30] MEDS ORDERED: LEVOTHYROXINE 112 MCG TAB PO SCH (06:00)
[2017-06-30] MEDS: BETHANECHOL 10 MG TAB PO SCH ×4 (07:43→21:26)
--- NOTE | 2017-06-30 08:08 | NEUSURGPN ---
Assessment/Plan: 67F s/p coil of ruptured acomm 2.5 weeks ago, now with failure to thrive, agitation, elevated TSH, stable ventriculomegaly on CT that we are not certain is the cause of her symptoms -UA negative, likely not UTI. -Medicine consult for metabolic work up. -we will consider lumbar drain if no other cause, doesn't appear to be symptomatic hydrocephalus -tx of hypothyroid will take some time to note improvement of symptoms, -call NS with any questions/concern/change in exam dw Dr. Curry Subjective: alert in bed, no complaints, not oriented and conversive but with some difficulty with appropriate answers. Asks how I saw "her on the radio". PT/OT at bedside who have also followed her at rehab and she appears the same as last week Objective: Alert, oriented to self, not person place or situation NAD Speech clear, but some expression difficulty and inappropriate word usage EOMi, PEARLA follows commands No facial droop, no obvious pronator drift MAEx4, deconditioned but appears 5/5 SILT gait deferred - Physician Discussed Patient with : Patricio Neurosurgery Physical Exam - Vitals, I&O, Labs I and O 06/29/17 06/30/17 07/01/17 05:59 05:59 05:59 Intake Total 1200 Output Total 400 Balance 800 Weight 49.1 kg Intake: Oral (ml) 700 IV Infused (ml) 500 NS W/ 20 KCl/L 1,000 ml @ 500 75 mls/hr IV CONT ELVIA Rx #:[id number] Output: Urine (ml) 400 Bedside Commode 400 Other: Number of Voids Bedside Commode 1 Number of Stools Bedside Commode 1 Vital Signs Temp Pulse Resp BP Pulse Ox 36.6 C 73 17 166/98 H 98 06/30/17 07:36 06/30/17 07:36 06/30/17 07:36 06/30/17 07:36 06/30/17 07:36 Laboratory Results 06/30/17 05:45 ICD10 Worksheet Patient Problems: Problems Problem Status Onset Forehead laceration Acute Hydrocephalus Acute Subarachnoid hemorrhage Acute
[2017-06-30] MEDS ORDERED: LEVOTHYROXINE 25 MCG TAB PO ONE (08:47)
[2017-06-30] MEDS: LISINOPRIL 5 MG TAB PO SCH (09:05)
[2017-06-30] MEDS: levETIRAcetam 250 MG TAB PO SCH ×2 (09:06→21:26)
[2017-06-30] MEDS: MULTIVITAMINS 1 EACH TAB PO SCH (09:06)
[2017-06-30] MEDS: POLYETHYLENE GLYCOL 3350 17 GM PKT PO SCH (09:07)
--- NOTE | 2017-06-30 11:28 | WOCRNPDOC ---
WOCRN Advanced Assessment Note - Skin Integrity Problem, Advanced Assess Sacrum Pressure Injury Dressing Type: Allevyn Life Dressing Description: Soiled (w/ stool distally) Exudate Amount: Scant Exudate Color: Yellow Exudate Characteristic(s): Serous Integumentary Issue Intervention: Dressing Changed, Dressing Initialed & Dated Prerna Wound Tissue: Blanching, Intact Prerna Wound Swelling: None Wound Bed Color: Red Wound Bed Constitution: Red/Peshtigo - Non Granular Tissue Site Odor: None Site Measurement - Head-to-Toe Length X Width X Depth (cm): 0.5cmx0.2cmx0.1cm Pressure Injury Stage: Stage 2 Pressure Injury Present on Admit: Yes (documented on 06/25; hospitalist notified) Skin Integrity Problem Comment: Patient re-admitted to [facility] from [facility] rehab , stage 2 pressure injury documented by [facility] on 06/25. Wound remains unchanged since previous assessment, still discrete w/ partial-thickness tissue loss evident. Periwound skin intact and blanching. Reinitiated pressure-relieving interventions for this admission, including protective dressing, turns side to side q2, and off-laoding cushion in chair.
--- NOTE | 2017-06-30 14:15 | HOSPPROG ---
Hospitalist Progress Note Assessment/Plan: Assessment: 67 yo F p/w acute fall in setting of acute encephalopathy 2/2 coiling ETHAN Plan: # Acute encephalopathy. Evidenced by global brain dysfunction characterized as disorientation, confusion, non-linear verbal responses to questions, poor directibility, all of which is an acute change from her pre-coiling baseline, likely 2/2 metabolic effects of recent hospitalization for vascular surg, medications receiving during hospitalization, possible NPH (mild ventriculomegally on HCT, personally interpreted), interrupted sleep, persisted at IPR and resulting in fall - unlikely that hypothyroidism is significantly contributing, as her affect is not hypoactive, but rather somewhat hyperactive and more disoriented than somnolent or flat - that said, will optimize her tx for hypothyroidism, and that may have a mild stabilizing effect over the next couple weeks - start HS melatonin - RVP neg, other labs unremarkable - recommend considering high volume LP to gauge whether she improves, or NSGY shunt # Hypothyroidism. TSH elevated 30, T4/T3 fairly unremarkable, has been on 112mcg , d/w Dr. Rao on team rounds, we agree on increased to 125mcg (additional 25mcg given this AM) and repeat TSH in 4 weeks # HTN. Chronic, add lisinopril 5mg # Hx ruptured anterior communicating artery. Coiled recently, cont on nimodipine # Pressure Injury. POA, wound care appreciated Diet. As adolfo PPx. High risk, hep q12 Code. Full Dispo. ADD uncertain, likely to SNF if unable to increase therapy participation. High level of medical complexity, high risk of worsening morbidity and mortality 2/2 issues outlined above. Subjective: patient unable to recount why she is here, denies pain Objective: Vital Signs Temp Pulse Resp BP Pulse Ox 36.6 C 70 14 166/98 H 99 06/30/17 07:36 06/30/17 12:00 06/30/17 12:00 06/30/17 07:36 06/30/17 12:00 Microbiology 06/30/17 09:58 Respiratory Panel (PCR) - Final Nasal, Sinus - Anaerobic Tube/Swab No Organism Detected Laboratory Results 06/30/17 05:45 06/29/17 06/30/17 07/01/17 05:59 05:59 05:59 Intake Total 1200 Output Total 400 Balance 800 PT 11.9 SEC (12.0-15.0) L 06/29/17 17:48 INR 0.86 (0.83-1.16) 06/29/17 17:48 - Physical Exam Constitutional: no apparent distress, not in pain, chronically ill appearing, cachectic, No uncomfortable Cardiovascular: regular rate and rhythym, no murmur, rub, or gallop, No edema Respiratory: no respiratory distress, no rales or rhonchi, clear to auscultation Gastrointestinal: normoactive bowel sounds, soft, non-tender abdomen, no palpable masses, No distension Neurologic: sensation intact bilaterally, other (AAOx0, 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
--- NOTE | 2017-06-30 17:48 | ASMTCMCOM ---
CM Note CM Note Notes: 67yr old female recent discharge to [facility] In-pt Rehab fall due to acute encephalopathy, S/P coil after SAH, Hypothyroid. Therapies to continue working w/patient to return to In-pt Rehab. Date Signed: 06/30/2017 05:47 PM Electronically Signed By:Carmen Salinas LCSW
--- NOTE | 2017-06-30 17:54 | ASMTCMCOM ---
CM Note CM Note Notes: Recommendations: OT-Home w/24hr supervision, PT-In-pt rehab, ST-In-pt rehab. Unfortunately pt does not have ins to pay for rehab. Patient's brother to take him home and care for him. Patient's and children live in [place]. He will need an appt for [facility] on discharge. Date Signed: 06/30/2017 05:54 PM Electronically Signed By:Carmen Salinas LCSW
--- NOTE | 2017-06-30 18:01 | ASMTCMCOM ---
CM Note CM Note Notes: Sorry last CM note 06/30/17 17:54 recorded on wrong patient. Please disregard. Date Signed: 06/30/2017 06:01 PM Electronically Signed By:Carmen Salinas LCSW
[2017-06-30] MEDS: MELATONIN 3 MG TAB PO SCH (21:26)
[2017-06-30] MEDS: AMITRIPTYLINE HCL 100 MG TAB PO SCH (21:26)
[2017-07-01] MEDS: LEVOTHYROXINE 125 MCG TAB PO SCH (05:27)
[2017-07-01] MEDS: HEPARIN 5,000 UNIT/0.5 ML SYR SC SCH ×3 (05:27→20:51)
[2017-07-01] MEDS: niMODipine 30 MG/0.9 ML UDL PO SCH ×6 (05:29→20:50)
[2017-07-01] MEDS: BETHANECHOL 10 MG TAB PO SCH ×4 (08:17→20:50)
[2017-07-01] MEDS: levETIRAcetam 250 MG TAB PO SCH ×2 (08:17→20:50)
[2017-07-01] MEDS: MULTIVITAMINS 1 EACH TAB PO SCH (08:17)
[2017-07-01] MEDS: LISINOPRIL 5 MG TAB PO SCH (08:17)
[2017-07-01] MEDS: POLYETHYLENE GLYCOL 3350 17 GM PKT PO SCH ×2 (08:18→08:20)
--- NOTE | 2017-07-01 09:12 | NEUSURGPN ---
Assessment/Plan: 67F s/p coil of ruptured acomm 2.5 weeks ago, now with failure to thrive, agitation, elevated TSH, stable ventriculomegaly on CT that we are not certain is the cause of her symptoms -UA negative, likely not UTI -Medicine consult for metabolic work up. -Dr Curry will do high volume LP later today to see if helps with mentation. Patient NPO in case need of sedation -tx of hypothyroid will take some time to note improvement of symptoms, -Discussed patient with Dr Curry Subjective: No new events Objective: Alert, oriented to self, not person place or situation Speech clear, but some expression difficulty and inappropriate word usage EOMI, PEARLA follows commands No facial droop, no obvious pronator drift MAEx4, deconditioned but appears 5/5 Neuro Check Frequency: per routine Urinary Catheter in Place: No - Physician Discussed Patient with Dr.: Curry Neurosurgery Physical Exam - Vitals, I&O, Labs I and O 06/30/17 07/01/17 07/02/17 05:59 05:59 05:59 Intake Total 1200 1237 Output Total 400 Balance 800 1237 Weight 49.1 kg Intake: Oral (ml) 700 787 IV Infused (ml) 500 450 NS W/ 20 KCl/L 1,000 ml @ 500 450 75 mls/hr IV CONT ELVIA Rx #:[id number] Output: Urine (ml) 400 Bedside Commode 400 Other: Output Comment Incontinence large output Number of Voids Bedside Commode 1 Incontinence 1 Number of Stools Bedside Commode 1 1 Incontinence 1 Microbiology 06/30/17 09:58 Respiratory Panel (PCR) - Final Nasal, Sinus - Anaerobic Tube/Swab No Organism Detected Vital Signs Temp Pulse Resp BP Pulse Ox 36.8 C 58 L 16 152/58 H 98 07/01/17 07:59 07/01/17 07:59 07/01/17 07:59 07/01/17 07:59 07/01/17 07:59 Laboratory Results 06/30/17 05:45 ICD10 Worksheet Patient Problems: Problems Problem Status Onset Forehead laceration Acute Hydrocephalus Acute Subarachnoid hemorrhage Acute
[2017-07-01] MEDS: ACETAMINOPHEN 325 MG TAB PO PRN (10:28)
[2017-07-01] MEDS: HYDROCODONE/APAP 5/325 TAB PO PRN ×2 (12:59→17:42)
--- NOTE | 2017-07-01 17:08 | HOSPPROG ---
Hospitalist Progress Note Assessment/Plan: Assessment: 67 yo F p/w acute fall in setting of acute encephalopathy, likely 2/ 2 coiling ETHAN Plan: # Acute encephalopathy. Evidenced by global brain dysfunction characterized as disorientation, confusion, non-linear verbal responses to questions, poor directibility, all of which are an acute change from her pre-coiling baseline, likely 2/2 metabolic effects of recent hospitalization for vascular surg, medications received during hospitalization, possible NPH (mild ventriculomegally on HCT), interrupted sleep, persisted at IPR and resulting in fall - counseled her that it is unlikely that hypothyroidism is significantly contributing, as her affect is not hypoactive, but rather somewhat hyperactive and more disoriented than somnolent or flat, but we are optimizing her tx for hypothyroidism, and that may have a mild stabilizing effect over the next couple weeks - plan to get therapy evals pre AND post LP tomorrow by NSGY to gauge whether there is any qualifiable improvement from the release of CSF, and, if so, Dr. Curry will proceed w/ [employer] shunt - counseled her that if there is no demonstrable improvement in cog sx s /p LP, then it is likely that her current state is a result of the many contributing factors above, and the likely remedy will be more time/space from her initial ETHAN event, coupled w/ ongoing therapy, good sleep hygiene, and transfer out of the acute care setting to a more settled environment (SNF vs. IPR) - discussed on rounds today that we should be IPR consult to gauge whether she is appropriate for IPR in her current state, and, if not, then we should begin presenting SNF options to ([facility]) - started HS melatonin - RVP neg, other labs unremarkable # Hypothyroidism. TSH elevated 30, T4/T3 fairly unremarkable, has been on 112mcg , increased to 125mcg and repeat TSH in 4 weeks # HTN. Chronic, added lisinopril 5mg w/ good effect # Hx ruptured anterior communicating artery. Coiled recently, cont on nimodipine # Pressure Injury. POA, wound care appreciated Diet. As adolfo PPx. High risk, hep q12 Code. Full Dispo. ADD uncertain, likely to SNF if unable to increase therapy participation. Subjective: patient eating independently but completely confused, had BMs today Objective: Vital Signs Temp Pulse Resp BP Pulse Ox 36.8 C 71 18 158/67 H 100 07/01/17 07:59 07/01/17 15:13 07/01/17 15:13 07/01/17 15:13 07/01/17 15:13 Microbiology 06/30/17 09:58 Respiratory Panel (PCR) - Final Nasal, Sinus - Anaerobic Tube/Swab No Organism Detected Laboratory Results 06/30/17 05:45 06/30/17 07/01/17 07/02/17 05:59 05:59 05:59 Intake Total 1200 1237 1200 Output Total 400 Balance 800 1237 1200 PT 11.9 SEC (12.0-15.0) L 06/29/17 17:48 INR 0.86 (0.83-1.16) 06/29/17 17:48 - Time Spent With Patient Time Spent with Patient: greater than 35 minutes Time Spent with Patient: Greater than 35 minutes spent on this patients care, greater than 50% of time spent counseling, educating, and coordinating care regarding the above mentioned plan. - Physical Exam Constitutional: no apparent distress, not in pain, No uncomfortable Cardiovascular: regular rate and rhythym, no murmur, rub, or gallop Respiratory: no respiratory distress, no rales or rhonchi, clear to auscultation Gastrointestinal: normoactive bowel sounds, soft, non-tender abdomen, no palpable masses Neurologic: other (AAOx0), No weakness (motor 5/5 bilat LE), No facial droop Psychiatric: not anxious, encephalopathic, poor insight, poor judgement, poor memory, No agitated ICD10 Worksheet Patient Problems: Problems Problem Status Onset Forehead laceration Acute Hydrocephalus Acute Subarachnoid hemorrhage Acute
[2017-07-01] MEDS: MELATONIN 3 MG TAB PO SCH (20:50)
[2017-07-01] MEDS: AMITRIPTYLINE HCL 100 MG TAB PO SCH (20:51)
[2017-07-02] MEDS: niMODipine 30 MG/0.9 ML UDL PO SCH ×3 (01:25→08:28)
[2017-07-02] MEDS: ACETAMINOPHEN 325 MG TAB PO PRN ×2 (03:57→21:13)
[2017-07-02 05:44] LABS: INR 0.92 (0.83-1.16); PROTIME(PATIENT) 12.6 SEC (12.0-15.0)
[2017-07-02] MEDS: LEVOTHYROXINE 125 MCG TAB PO SCH ×2 (06:08→06:26)
[2017-07-02] MEDS: HEPARIN 5,000 UNIT/0.5 ML SYR SC SCH ×3 (06:08→21:12)
[2017-07-02] MEDS: BETHANECHOL 10 MG TAB PO SCH ×4 (08:17→21:11)
[2017-07-02] MEDS: LISINOPRIL 5 MG TAB PO SCH (08:18)
[2017-07-02] MEDS: levETIRAcetam 250 MG TAB PO SCH ×2 (08:18→21:11)
[2017-07-02] MEDS: niMODipine 30 MG CAP PO SCH ×2 (08:21→08:27)
--- NOTE | 2017-07-02 08:21 | HOSPPROG ---
Hospitalist Progress Note Assessment/Plan: # acute encephalopathy - may be related to SAH given temporal relation - large volume LP today given ventriculomegaly - consider decreasing sedating meds as tolerated # hypothyroid - may contribute to above; synthroid uptitrated; recheck TSH in 4 weeks # htn - cont lisinopril # recent SAH d/t ruptured acomm aneurysm s/p coiling - nimodipine for 21 days post coiling - cont keppra # pressure injury, POA - wound care # urinary retention - bethanechol started Subjective: working with therapy but very resistant; speaks softly Objective: Vital Signs Temp Pulse Resp BP Pulse Ox 36.9 C 73 13 134/68 H 92 07/02/17 07:33 07/02/17 07:33 07/02/17 07:33 07/02/17 07:33 07/02/17 04:00 Laboratory Results 07/02/17 05:14 07/01/17 07/02/17 07/03/17 05:59 05:59 05:59 Intake Total 1237 1570 Output Total 450 Balance 1237 1120 PT 12.6 SEC (12.0-15.0) 07/02/17 05:14 INR 0.92 (0.83-1.16) 07/02/17 05:14 chart reviewed CTH reviewed - Physical Exam Constitutional: uncomfortable (laying in bed) Cardiovascular: regular rate and rhythym, no murmur, rub, or gallop Respiratory: no respiratory distress, no rales or rhonchi Gastrointestinal: normoactive bowel sounds, soft, non-tender abdomen ICD10 Worksheet Patient Problems: Problems Problem Status Onset Forehead laceration Acute Hydrocephalus Acute Subarachnoid hemorrhage Acute
[2017-07-02] MEDS: niMODipine 30 MG/0.9 ML UDL TUBE SCH ×4 (08:38→21:11)
[2017-07-02] MEDS: POLYETHYLENE GLYCOL 3350 17 GM PKT PO SCH (08:38)
[2017-07-02] MEDS: MULTIVITAMINS 1 EACH TAB PO SCH (08:38)
--- NOTE | 2017-07-02 09:37 | NEUSURGPN ---
Assessment/Plan: 67F s/p coil of ruptured acomm 2.5 weeks ago, now with failure to thrive, agitation, elevated TSH, stable ventriculomegaly on CT that we are not certain is the cause of her symptoms -UA negative, likely not UTI -Medicine consult for metabolic work up. -High volume LP scheduled for later today. PT showed evaluate post LP. -Discussed patient with Dr Curry -Please notify NS with any change in neuro/motor exam Subjective: Denies any pain Objective: A&Ox1 MAEx4 follows simple commands, PERRLA - Physician Discussed Patient with : Patricio Neurosurgery Physical Exam - Vitals, I&O, Labs I and O 07/01/17 07/02/17 07/03/17 05:59 05:59 05:59 Intake Total 1237 1570 Output Total 450 Balance 1237 1120 Intake: Oral (ml) 787 1220 IV Infused (ml) 450 350 NS W/ 20 KCl/L 1,000 ml @ 450 350 75 mls/hr IV CONT ELVIA Rx #:[id number] Output: Urine (ml) 450 Bedside Commode 450 Other: Intake Quantity Yes Sufficient Output Comment Incontinence large output Number of Voids Incontinence 1 2 Number of Stools Bedside Commode 1 Incontinence 1 0 Vital Signs Temp Pulse Resp BP Pulse Ox 36.9 C 73 13 130/64 H 92 07/02/17 07:33 07/02/17 07:33 07/02/17 07:33 07/02/17 08:18 07/02/17 04:00 Laboratory Results 07/02/17 05:14 ICD10 Worksheet Patient Problems: Problems Problem Status Onset Forehead laceration Acute Hydrocephalus Acute Subarachnoid hemorrhage Acute
[2017-07-02] MEDS ORDERED: LIDOCAINE 1% 300 MG/30 ML SDV ONE (10:48)
--- NOTE | 2017-07-02 13:36 | ASMTCMCOM ---
CM Note CM Note Notes: Patient confused, hydrocephalus, to have a lumbar puncture today. Spoke with In-pt Rehab who is still watching patient progress, hoping that the lumbar puncture will help with the confusion. Spoke to who seems a bit discouraged. reports that they have been 45yr in September. Date Signed: 07/02/2017 01:35 PM Electronically Signed By:Carmen Salinas LCSW
--- NOTE | 2017-07-02 14:09 | PDINTPN ---
Poker Room Manager Progress Note Assessment/Plan: Assessment/plan: 67 F s/p coiling after SAH with ICU stay of about 10 days and transferred to SNF. She developed (or persisted) with failure to thrive/lethargy and had a fall so was re-admitted to [facility]. She was evaluated by neurosurgery who eventually performed an LP with an increase in mental status. Her TSH was also > 30, so her synthroid was increased. * NPH- s/p LP drain with improvement in MS. Further plans per neurosurgery ( observe, VPS?) * Hypothyroid- synthroid increased * HTN- stable * Subjective: no significant change at the time of my visit Objective: Vital Signs Temp Pulse Resp BP Pulse Ox 36.3 C 75 11 L 140/97 H 97 07/02/17 13:09 07/02/17 13:09 07/02/17 13:09 07/02/17 13:09 07/02/17 13:09 Microbiology 07/02/17 12:18 Gram Stain - Final Cerebral Spinal Fluid Laboratory Results 07/02/17 05:14 07/01/17 07/02/17 07/03/17 05:59 05:59 05:59 Intake Total 1237 1570 Output Total 450 Balance 1237 1120 PT 12.6 SEC (12.0-15.0) 07/02/17 05:14 INR 0.92 (0.83-1.16) 07/02/17 05:14 Physical Exam - Physical Exam General Appearance: obtunded EENT: PERRL/EOMI Neck: supple Respiratory: lungs clear, normal breath sounds, No respiratory distress Cardiac/Chest: regular rate, rhythm, No edema Abdomen: non-tender, soft, No distended Skin: normal color, warm/dry, No cyanosis Lymphatic: no adenopathy Extremities: No pedal edema Neuro/Psych: cognition abnormalities ICD10 Worksheet Patient Problems: Problems Problem Status Onset Forehead laceration Acute Hydrocephalus Acute Subarachnoid hemorrhage Acute
[2017-07-02] MEDS: AMITRIPTYLINE HCL 100 MG TAB PO SCH (21:11)
[2017-07-02] MEDS: MELATONIN 3 MG TAB PO SCH (21:12)
[2017-07-03] MEDS: niMODipine 30 MG/0.9 ML UDL TUBE SCH ×7 (00:30→22:58)
[2017-07-03] MEDS: LEVOTHYROXINE 125 MCG TAB PO SCH (05:49)
[2017-07-03] MEDS: HEPARIN 5,000 UNIT/0.5 ML SYR SC SCH ×3 (05:50→22:58)
--- NOTE | 2017-07-03 07:54 | SOAPPROG ---
SOAP Progress Note Assessment/Plan: Assessment/Plan: 67F s/p coil of ruptured acomm 2.5 weeks ago, now with failure to thrive, agitation, elevated TSH, stable ventriculomegaly on CT that we are not certain is the cause of her symptoms. No longer agitated. Ongoing disorientation, no appreciable improvement since LP yesterday. -UA negative, likely not UTI -Medicine consult for metabolic work up. -High volume LP did not show appreciable change in status -plan is to transfer back to rehab if medicine agrees. -Discussed patient with Dr Curry -Please notify NS with any change in neuro/motor exam Subjective: asleep, wakes easily and is comfortable. Denies any pain Objective: A&Ox1 MAEx4 follows simple commands, PERRLA 07/03/17 07:54 Objective: Vital Signs Temp Pulse Resp BP Pulse Ox 37.3 C 65 16 141/78 H 94 07/03/17 04:00 07/03/17 04:00 07/03/17 04:00 07/03/17 04:00 07/03/17 04:00 Microbiology 07/02/17 12:18 Gram Stain - Final Cerebral Spinal Fluid Laboratory Results 07/02/17 05:14 07/02/17 07/03/17 07/04/17 05:59 05:59 05:59 Intake Total 1570 1200 Output Total 450 Balance 1120 1200 PT 12.6 SEC (12.0-15.0) 07/02/17 05:14 INR 0.92 (0.83-1.16) 07/02/17 05:14 Glucose: 44 Protein: 144 ICD10 Worksheet Patient Problems: Problems Problem Status Onset Forehead laceration Acute Hydrocephalus Acute Subarachnoid hemorrhage Acute
[2017-07-03] MEDS: LISINOPRIL 5 MG TAB PO SCH (08:54)
[2017-07-03] MEDS: POLYETHYLENE GLYCOL 3350 17 GM PKT PO SCH (08:54)
[2017-07-03] MEDS: MULTIVITAMINS 1 EACH TAB PO SCH (08:54)
[2017-07-03] MEDS: levETIRAcetam 250 MG TAB PO SCH ×2 (08:54→20:29)
[2017-07-03] MEDS: BETHANECHOL 10 MG TAB PO SCH ×4 (08:54→20:29)
--- NOTE | 2017-07-03 09:50 | HOSPPROG ---
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 - nimodipine for 21 days post coiling - cont keppra # pressure injury, POA - wound care # urinary retention - bethanechol started Subjective: no real clinical change after LP yesterday Objective: Vital Signs Temp Pulse Resp BP Pulse Ox 37.1 C 75 14 144/71 H 97 07/03/17 07:38 07/03/17 07:38 07/03/17 07:38 07/03/17 07:38 07/03/17 07:38 Microbiology 07/02/17 12:18 Gram Stain - Final Cerebral Spinal Fluid Laboratory Results 07/02/17 05:14 07/02/17 07/03/17 07/04/17 05:59 05:59 05:59 Intake Total 1570 1200 Output Total 450 Balance 1120 1200 PT 12.6 SEC (12.0-15.0) 07/02/17 05:14 INR 0.92 (0.83-1.16) 07/02/17 05:14 discussed with Luis Martinez - formal PT eval still pending - Physical Exam Constitutional: other (blank stares; very slow to respond, often will forget to answer) Cardiovascular: regular rate and rhythym, no murmur, rub, or gallop Respiratory: no respiratory distress, no rales or rhonchi Gastrointestinal: soft, non-tender abdomen, no palpable masses Neurologic: other (AOx1) ICD10 Worksheet Patient Problems: Problems Problem Status Onset Subarachnoid hemorrhage Acute Hydrocephalus Acute Forehead laceration Acute
[2017-07-03] MEDS: IBUPROFEN 200 MG TAB PO PRN (11:11)
[2017-07-03] MEDS: ACETAMINOPHEN 325 MG TAB PO PRN (11:11)
--- NOTE | 2017-07-03 15:06 | PDINTPN ---
Staffing Mgr Progress Note Assessment/Plan: Assessment/plan: 67 F s/p coiling after SAH with ICU stay of about 10 days and transferred to SNF. She developed (or persisted) with failure to thrive/lethargy and had a fall so was re-admitted to [facility]. She was evaluated by neurosurgery who eventually performed an LP with an increase in mental status. Her TSH was also > 30, so her synthroid was increased. * NPH- s/p LP drain with improvement in MS. Further plans per neurosurgery ( observe, VPS?). She reportedly has been ewaxing and waning, but on my exam today was much more lucid than yesterday * Hypothyroid- synthroid increased * HTN- stable * Subjective: improved mental status after LP yesterday. No complaints today Objective: Vital Signs Temp Pulse Resp BP Pulse Ox 36.9 C 89 17 116/75 96 07/03/17 11:30 07/03/17 11:30 07/03/17 11:30 07/03/17 11:30 07/03/17 11:30 Microbiology 07/02/17 12:18 Gram Stain - Final Cerebral Spinal Fluid Laboratory Results 07/02/17 05:14 07/02/17 07/03/17 07/04/17 05:59 05:59 05:59 Intake Total 1570 1200 Output Total 450 Balance 1120 1200 PT 12.6 SEC (12.0-15.0) 07/02/17 05:14 INR 0.92 (0.83-1.16) 07/02/17 05:14 Physical Exam - Physical Exam General Appearance: alert, no apparent distress EENT: PERRL/EOMI Neck: supple Respiratory: lungs clear, normal breath sounds, No respiratory distress, No accessory muscle use Cardiac/Chest: regular rate, rhythm, No edema Abdomen: non-tender, soft, No distended Skin: normal color, warm/dry, No cyanosis Lymphatic: no adenopathy Extremities: No pedal edema Neuro/Psych: cognition abnormalities ICD10 Worksheet Patient Problems: Problems Problem Status Onset Forehead laceration Acute Hydrocephalus Acute Subarachnoid hemorrhage Acute
[2017-07-03] MEDS: AMITRIPTYLINE HCL 100 MG TAB PO SCH (20:29)
[2017-07-03] MEDS: MELATONIN 3 MG TAB PO SCH (20:29)
[2017-07-04] MEDS: niMODipine 30 MG/0.9 ML UDL TUBE SCH (04:52)
[2017-07-04] MEDS: HEPARIN 5,000 UNIT/0.5 ML SYR SC SCH (05:09)
[2017-07-04] MEDS: LEVOTHYROXINE 125 MCG TAB PO SCH (05:09)
[2017-07-04] MEDS: BETHANECHOL 10 MG TAB PO SCH ×2 (08:22→12:47)
[2017-07-04] MEDS: niMODipine 30 MG/0.9 ML UDL PO SCH ×2 (08:23→12:47)
[2017-07-04] MEDS: levETIRAcetam 250 MG TAB PO SCH (08:24)
[2017-07-04] MEDS: LISINOPRIL 5 MG TAB PO SCH (08:24)
[2017-07-04] MEDS: MULTIVITAMINS 1 EACH TAB PO SCH (08:25)
[2017-07-04] MEDS: POLYETHYLENE GLYCOL 3350 17 GM PKT PO SCH (08:25)
--- NOTE | 2017-07-04 09:35 | NEUSURGPN ---
Assessment/Plan: 67F s/p coil of ruptured acomm 2.5 weeks ago, now with failure to thrive, agitation, elevated TSH, stable ventriculomegaly on CT that we are not certain is the cause of her symptoms. No longer agitated. Ongoing disorientation, no appreciable improvement since LP yesterday. -Medicine consulted for metabolic work up. -High volume LP did not show appreciable change in status -transfer back to rehab, Medicine ok with this -Discussed patient with Dr Curry -Please notify NS with any change in neuro/motor exam Subjective: Sitting in chair with headache Objective: A&Ox1 MAEx4 follows simple commands, PERRLA Neuro Check Frequency: per routine Urinary Catheter in Place: No - Physician Discussed Patient with : Patricio Neurosurgery Physical Exam - Vitals, I&O, Labs I and O 07/03/17 07/04/17 07/05/17 05:59 05:59 05:59 Intake Total 1200 1150 Output Total 500 Balance 1200 650 Intake: Oral (ml) 1200 1150 Output: Urine (ml) 500 Incontinence 500 Other: Intake Quantity Yes Sufficient Number of Voids Incontinence 2 2 Microbiology 07/02/17 12:18 Gram Stain - Final Cerebral Spinal Fluid Vital Signs Temp Pulse Resp BP Pulse Ox 36.8 C 73 15 136/78 H 94 07/04/17 07:57 07/04/17 07:57 07/04/17 07:57 07/04/17 07:57 07/04/17 07:57 Laboratory Results 07/02/17 05:14 ICD10 Worksheet Patient Problems: Problems Problem Status Onset Forehead laceration Acute Hydrocephalus Acute Subarachnoid hemorrhage Acute
[2017-07-04] MEDS: ACETAMINOPHEN 325 MG TAB PO PRN (09:37)
[2017-07-04] MEDS: IBUPROFEN 200 MG TAB PO PRN (09:38)
--- NOTE | 2017-07-04 09:41 | PDIAF ---
- Diagnosis Diagnosis: S/P coil aneurysm, alterated mental status Code Status: Full Code - Medication Management Discharge Medications: Medications to Continue on Transfer Acetaminophen [Tylenol 325mg (*)] 650 mg PO Q6HRS tab 06/25/17 [Last Taken 14:00] Heparin [Heparin SC 5000 unit/0.5 ml (*)] 5,000 unit SC BID syr 06/25/17 [Last Taken 06/29/17] levETIRAcetam [Keppra 250 mg (*)] 750 mg PO BID #60 tab 06/25/17 [Last Taken ] methYLPHENIDATE HCL [Ritalin 10mg (*)] 10 mg PO DAILY #30 tab 06/25/17 [Last Taken 06/29/17] Bisacodyl [Magic Bullet 10 mg] 10 mg OK DAILY PRN 06/29/17 [Last Taken 06/26/17] Carboxymethylcellulose 1% [Refresh Celluvisc (*)] 1 drop EACHEYE PRN PRN [Last Taken Unknown] Lactulose 20 gm PO HS PRN 06/29/17 [Last Taken 06/27/17] Nystatin Powder [Mycostatin Powder] 1 wallace TP BID PRN 06/29/17 [Last Taken Unknown] Petrolat,Wht/Min Oil/Sod Chl [Refresh P.m. Ointment] 1 wallace EACHEYE HS PRN [Last Taken Unknown] Polyethylene Glycol 3350 [Miralax 17 gm (*)] 17 gm PO DAILY 06/29/17 [Last Taken Unknown] Sennosides/Docusate Sodium [Senokot-S] 1 - 2 tab PO BID PRN 06/29/17 [Last Taken 06/29/17 2 TABS] Acetaminophen [Tylenol 325mg (*)] 650 mg PO Q4HRS PRN tab 07/04/17 [Last Taken Unknown] Amitriptyline HCl [Elavil 100 MG (*)] 100 mg PO HS tab 07/04/17 [Last Taken Unknown] Bethanechol [Urecholine (*)] 20 mg PO ACHS tab 07/04/17 [Last Taken Unknown] Levothyroxine [Synthroid 125 mcg (*)] 125 mcg PO DAILY AT 6AM tab 07/04/17 [ Last Taken Unknown] Lisinopril [Zestril 5 mg (*)] 5 mg PO DAILY tab 07/04/17 [Last Taken Unknown] Melatonin [Melatonin 3 MG (*)] 3 mg PO HS tab 07/04/17 [Last Taken Unknown] Multivitamins [Multivitamin (*)] 1 each PO DAILY tab 07/04/17 [Last Taken Unknown] niMODipine [Nimotop] 60 mg PO Q4H udl 07/04/17 [Last Taken Unknown] Discharge Medications: Refer to the Discharge Home Medication list for PRN reason. PICC Care - Routine: N/A - Orders Services needed: Registered Nurse, Certified Maintenance Journeyman, Physical Therapy, Occupational Therapy, Speech Language Pathologist Isolation Type: None Diet Recommendation: no restrictions on diet Diet Texture: Regular Texture Diet, Thin Liquids, Meds Whole in Puree Activity/Weight Bearing Restrictions: none Additional Instructions: none - Follow Up Care Current Providers and Referrals: Patient,NotPresent [Unknown] - As per Instructions Henrik Curry MD [Medical Doctor] - follow up in 2 weeks
--- NOTE | 2017-07-04 10:53 | PDINTPN ---
Operating Room Surgical Technologist Progress Note Assessment/Plan: Assessment/plan: 67 F s/p coiling after SAH with ICU stay of about 10 days and transferred to SNF. She developed (or persisted) with failure to thrive/lethargy and had a fall so was re-admitted to [facility]. She was evaluated by neurosurgery who eventually performed an LP with an increase in mental status. Her TSH was also > 30, so her synthroid was increased. * NPH- s/p LP drain with mild improvement in MS, and remains the same today. Further plans per neurosurgery, including dc to rehab today. * Hypothyroid- synthroid increased * HTN- stable * 07/04/17 10:52 Subjective: feels about the same. No events Objective: Vital Signs Temp Pulse Resp BP Pulse Ox 36.8 C 73 15 136/78 H 94 07/04/17 07:57 07/04/17 07:57 07/04/17 07:57 07/04/17 07:57 07/04/17 07:57 Microbiology 07/02/17 12:18 Gram Stain - Final Cerebral Spinal Fluid Laboratory Results 07/02/17 05:14 07/03/17 07/04/17 07/05/17 05:59 05:59 05:59 Intake Total 1200 1150 Output Total 500 Balance 1200 650 PT 12.6 SEC (12.0-15.0) 07/02/17 05:14 INR 0.92 (0.83-1.16) 07/02/17 05:14 Physical Exam - Physical Exam General Appearance: alert, no apparent distress EENT: PERRL/EOMI Neck: supple Respiratory: lungs clear, normal breath sounds, No respiratory distress, No accessory muscle use Cardiac/Chest: regular rate, rhythm, No edema Abdomen: non-tender, soft, No distended Skin: normal color, warm/dry, No cyanosis Lymphatic: no adenopathy Extremities: No pedal edema Neuro/Psych: alert, normal mood/affect, cognition abnormalities ICD10 Worksheet Patient Problems: Problems Problem Status Onset Forehead laceration Acute Hydrocephalus Acute Subarachnoid hemorrhage Acute
--- NOTE | 2017-07-04 10:58 | HOSPPROG ---
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 - nimodipine for 21 days post coiling - cont keppra # pressure injury, POA - wound care # urinary retention - bethanechol started # dispo - ok for discharge back to inpatient rehab Subjective: discussed with patient's ; not really any more interactive than before the LP Objective: Vital Signs Temp Pulse Resp BP Pulse Ox 36.8 C 73 15 136/78 H 94 07/04/17 07:57 07/04/17 07:57 07/04/17 07:57 07/04/17 07:57 07/04/17 07:57 Microbiology 07/02/17 12:18 Gram Stain - Final Cerebral Spinal Fluid Laboratory Results 07/02/17 05:14 07/03/17 07/04/17 07/05/17 05:59 05:59 05:59 Intake Total 1200 1150 Output Total 500 Balance 1200 650 PT 12.6 SEC (12.0-15.0) 07/02/17 05:14 INR 0.92 (0.83-1.16) 07/02/17 05:14 - Physical Exam Constitutional: other (not participating much in interview) Cardiovascular: regular rate and rhythym, no murmur, rub, or gallop Respiratory: no rales or rhonchi, clear to auscultation Gastrointestinal: normoactive bowel sounds, soft, non-tender abdomen, no palpable masses ICD10 Worksheet Patient Problems: Problems Problem Status Onset Subarachnoid hemorrhage Acute Hydrocephalus Acute Forehead laceration Acute
[2017-07-04 12:03] VITALS: BP 148/68
== END 2017-07-04 13:40 | DRG 71 ==
LOC: EDUNIT# → OBSVTOIN 18:01 → F2N 19:40
PROVIDERS: ADMIT Neurological Surgery; ATTEND Neurological Surgery
PROC: 0HQ1XZZ Repair Face Skin, External Approach (ICD-10-PCS; 2017-06-29)
PROC: 009U3ZX Drainage of Spinal Canal, Percutaneous Approach, Diagnostic (ICD-10-PCS; principal; 2017-07-02)
DX: G93.41 Metabolic encephalopathy (principal); G91.9 Hydrocephalus, unspecified; L89.152 Pressure ulcer of sacral region, stage 2; E03.9 Hypothyroidism, unspecified; R62.7 Adult failure to thrive; D64.9 Anemia, unspecified; R13.10 Dysphagia, unspecified; R33.9 Retention of urine, unspecified; K59.00 Constipation, unspecified; F17.200 Nicotine dependence, unspecified, uncomplicated; M79.7 Fibromyalgia; G93.89 Other specified disorders of brain; I10 Essential (primary) hypertension; S01.81XA Laceration without foreign body of other part of head, initial encounter; W19.XXXA Unspecified fall, initial encounter; Y92.193 Bedroom in other specified residential institution as the place of occurrence of the external cause
CPT/HCPCS: 82607-90; 84481-90; 92526-GN; 92610-GN; 97112-GO; 97116-GP; 97162-GP; 97166-GO; 97530-GO; 97530-GP; 97535-GO; G0515-GO; G8978-GP-CM; G8979-GP-CK; G8987-GO-CM; G8988-GO-CL; G8996-GN-CJ; G8997-GN-CI; J1644

== ENCOUNTER 2017-07-04 14:12 | Inpatient (IN) | payer OTHER ==
[2017-07-04] MEDS ORDERED: NON-FORMULARY NEW DRUG (Lactulose [Lactulose] 20 GM) PO PRN (15:19)
[2017-07-04] MEDS ORDERED: CARBOXYMETHYLCELLULOSE 1% 0.4 ML DROPERETTE EACHEYE PRN (15:19)
[2017-07-04] MEDS ORDERED: PETROLAT,WHT/MIN OIL/SOD CHL 3.5 GM OPHT.OINT EACHEYE PRN (15:19)
[2017-07-04] MEDS ORDERED: NYSTATIN POWDER 15 GM BTL TP PRN (15:19)
[2017-07-04] MEDS ORDERED: SENNOSIDES/DOCUSATE SODIUM TAB PO PRN (15:19)
[2017-07-04] MEDS ORDERED: BISACODYL 10 MG SUPP PR PRN (15:19)
--- NOTE | 2017-07-04 15:28 | PDOREHIP ---
Admission [facility] - Admission - 3 Day Assessment Period Admission Date/Day 1: 07/04/17 Day 2: 07/05/17 Day 3: 07/06/17 - Active Diagnoses Comorbidities and Co-existing Conditions at Admission: 95707. None of the Above - Skin Conditions Unhealed Pressure Ulcer (1 or more/Stage 1 or >)-Admission: 1. Yes # Stage 2 Pressure Ulcers-Admission: 1 (Coccyx)
[2017-07-04] MEDS ORDERED: [UNRECOGNIZED DRUG - OTHER] PO SCH (15:30)
--- NOTE | 2017-07-04 15:47 | GHP ---
[f rep st] HISTORY AND PHYSICAL POST ADMISSION PHYSICIAN EVALUATION AND REHABILITATION TREATMENT PLAN DATE OF ADMISSION: 07/04/2017 DATE OF EVALUATION: TIME OF EVALUATION: REFERRING FACILITY: [facility]. REFERRING PHYSICIAN: Erick Sandy MD IMPAIRMENT GROUP: 2.1 DATE OF ONSET: 06/12/2017. REHABILITATION DIAGNOSIS: Debility and cognitive impairment following subarachnoid hemorrhage and coil embolization of ruptured anterior communicating artery aneurysm. CONSULTING PHYSICIANS: Neurosurgery, Dr. Curry, and Pulmonary/Critical Care, Dr. Quick. ETIOLOGIC DIAGNOSIS: Nontraumatic brain dysfunction. DATE OF SURGERY: 06/14/2017. HISTORY OF PRESENT ILLNESS: This patient was initially seen at [facility] where she was diagnosed with a subarachnoid hemorrhage due to ruptured anterior communicating artery aneurysm. She was transferred to [facility] where she had coil embolization of the aneurysm. Hospital course at that time included agitation treated with Precedex, followed by somnolence treated with methylphenidate. She has been on nimodipine for prevention of vasospasm. She was medically stabilized and discharged to inpatient rehabilitation on 06/25/2017. She had a 4-day stay with little progress in cognition or function. She had a functional independence measure of 24, indicating maximum or total assist for all mobility, ADLs, and cognitive functions. On 06/29/2017, she had a fall and hit her head, so she was sent to the emergency department. A head CT at that time showed no intracranial hemorrhage, and if anything, slight improvement from previous head CT regarding the subarachnoid hemorrhage. She was admitted to the hospital where, after several days, she underwent a large volume lumbar puncture to determine whether hydrocephalus might be contributing to her lack of progress in rehabilitation. She did not have a significant improvement in function after lumbar puncture. She was again medically stabilized and came to inpatient rehabilitation to continue working with therapies toward optimizing her functional status and cognition. She currently complains of feeling fatigued. She was up all morning and active with therapies. LABS AND STUDIES: During her stay, CBC showed anemia which improved somewhat. On 06/30/2017, hemoglobin was 11.4, hematocrit was 33.6. On 06/29, they were 11.0 and 32.2. Coagulation studies showed normal PT and PTT. Serum chemistry showed some dehydration when she was admitted with a BUN of 24 and a creatinine of 0.8. Magnesium was normal. B12 was actually on the high side. Vitamin D was normal. Folate was normal. On 06/28/2017, TSH was drawn while in inpatient rehabilitation and was markedly elevated at 30. Free T4 on 06/29, was normal at 0.96, free T3 was low at 2.4. She had an a.m. cortisol drawn on 06/30, which was normal at 15.3. Urinalysis was not consistent with urinary tract infection. She had 1+ blood, 2+ protein, and 5-10 red blood cells. CSF analysis showed 13 red blood cells in tube 1 and 16 in tube 4. White blood cells were not elevated at 5 and 3, respectively. Total protein was slightly high at 114 and glucose was slightly low at 44. She had an RPR tested which was nonreactive. Imaging included a head CT as described above and a cervical spine CT which showed multilevel degenerative changes and no fracture. PRECAUTIONS: She is a fall risk. She has aspiration precautions, and she has seizure precautions. ACTIVE COMORBIDITIES: She has no active tier 1, tier 2, or tier 3 comorbidities. PAST MEDICAL HISTORY: 1. Hypothyroidism. 2. Subarachnoid hemorrhage. 3. Low back pain. 4. Fibromyalgia. PAST SURGICAL HISTORY: She has had coil embolization of a ruptured anterior communicating aneurysm and she has had a hysterectomy. ADMISSION MEDICATIONS: 1. Acetaminophen 650 mg p.o. q.4 hours p.r.n. 2. Amitriptyline 100 mg p.o. at bedtime. 3. Bethanechol 20 mg p.o. 4 times daily a.c. and h.s. 4. Bisacodyl 10 mg daily p.r.n. 5. Refresh eyedrops each eye p.r.n. 6. Heparin 5000 units subcutaneous twice daily. 7. Lactulose 20 g p.o. h.s. 8. Levetiracetam 750 mg p.o. twice daily. 9. Lisinopril 5 mg p.o. daily. 10. Melatonin 3 mg p.o. at bedtime. 11. Methylphenidate 10 mg p.o. daily. 12. Multivitamin daily. 13. Nimodipine 60 mg p.o. q.4 hours which is to continue 21 days after coiling or through approximately 07/05/2017. 14. Nystatin powder b.i.d. 15. Refresh PM ointment each eye q.h.s. 16. Polyethylene glycol 17 g p.o. daily. 17. Senna/docusate 1 to 2 tabs p.o. b.i.d. ALLERGIES: There are no known drug allergies. PSYCHOSOCIAL HISTORY: She is and lives with her . She has a history of tobacco smoke and occasional alcohol use. She has 2 adult children. FAMILY HISTORY: Significant for breast cancer in her mother. REVIEW OF SYSTEMS: She reports feeling fatigued. She thinks she slept well. She denies cough or dyspnea, fever or chills. She reports a reduced appetite. She denies nausea, vomiting, constipation, or diarrhea. Otherwise, a 10-point review of systems is negative. PHYSICAL EXAMINATION: VITALS: This morning in the hospital blood pressure was 148/68, heart rate was 72, respiratory rate was 15, oxygen saturation was 97% on room air, temperature was 36.6 degrees centigrade. Her weight was 49.1 kg for a body mass index of 16.5. GENERAL: This is a thin, cachectic woman lying in bed, dressed in a hospital gown, sleepy but alerts with stimulation, cooperative and in no acute distress. HEENT: Extraocular movements are intact. Pupils are equal, round, and reactive to light. Mucous membranes are moist. Dentition is in good condition. She has an uncrowded airway, Mallampati class 1. NECK: Supple. HEART: There is a regular rate and rhythm with no murmurs, rubs , or gallops. LUNGS: Clear to auscultation bilaterally. ABDOMEN: Soft, nontender , nondistended with normoactive bowel sounds and no hepatosplenomegaly. EXTREMITIES: She is cachectic and appears to have muscle wasting. There is no cyanosis, clubbing, or edema. Radial and dorsalis pedis pulses are 2+ bilaterally. NEUROLOGIC: She is alert and oriented to self, location, and general situation. Cranial nerves 2-12 are grossly intact. There is no focal weakness. Sensation is intact to light touch. She is unable to read the correct time off the clock on the wall. SKIN: There is approximately a 0.5 cm stage II decubitus ulcer over her coccyx with surrounding areas of healed skin. CURRENT LEVEL OF FUNCTION PER THE PREADMISSION SCREEN: Regarding diet, feeding , and swallowing, she was noted to have mild dysphagia, but was on a regular diet. For grooming, she required maximal assist and voice cues. For dressing, upper body required moderate assist and lower body maximal assist with voice cues. She had impaired sitting balance, motor planning, and ability to follow through with commands. Toileting required total assist. She was continent of bowel and bladder. Bed mobility was done with minimal assist and voice cues. Transfers required moderate to maximal assist of 2 people using a front-wheeled walker. Seated balance required contact guard to moderate assist. Endurance was poor. She was able to ambulate 3 feet with max assist of 2 with a front-wheeled walker. She was noted to have a poor posture, decreased stepping mechanics, and decreased step length. Communication was noted to be word salad. Regarding cognition, she was following simple one-step commands. She had impaired attention, problem solving, and decreased insight and judgment. She was impulsive. On today's exam, her mental status appears to be somewhat improved, and she was able to be conversant and showed a sense of humor. IMPRESSION: This is a 67-year-old woman who has had a prolonged hospital and rehabilitation course following subarachnoid hemorrhage due to a ruptured anterior communicating artery aneurysm. She underwent coil embolization on 06/14, and subsequently has been medically stabilized, came to rehabilitation but failed to progress over 4 days, and ultimately had a fall and hit her head. She was returned to the hospital where imaging showed no new hemorrhage or other intercerebral changes. She had a trial of a large volume lumbar puncture to assess whether there might be hydrocephalus since imaging has consistently shown enlarged ventricles; however, she did not have a significant improvement in mentation, mobility, or ADLs following the lumbar puncture. She was otherwise medically stable and returned to inpatient rehabilitation. She presents with significant debility in mobility, activities of daily living, and cognition. She has a decubitus ulcer over the sacrum. There is a 1.7 kg weight loss documented in the chart. She has anemia. She has hematuria and proteinuria as well as hypertension. She will benefit from nursing care regarding fall risk, skin integrity, healing the decubitus ulcer, bowel and bladder, medication administration, and medication education. She needs physical and occupational therapy to optimize her mobility and activities of daily living, and speech language pathology regarding mild dysphagia and significant cognitive impairment. She needs the care of a physician regarding comorbid conditions including anemia and hypertension. She will have consult with the dietitian regarding weight loss. Her goal is to complete a rehabilitation stay and then return home with her and home care services versus a fpc facility depending on progress. If it is to be a fpc facility, it is expected that the burden of care will be reduced before transfer. For a safe discharge, it is expected that she will achieve independence with eating and modified independence for bed mobility and transfers. Most likely, she will continue to use the wheelchair for primary means of transportation and a front-wheeled walker for household distances with assistance. It is expected she will continue to require assistance for dressing and bathing, and she will not be able to accomplish household management, shopping, or meal preparation. She will have therapy with physical therapy, occupational therapy, and speech and language pathology on a modified schedule for 30-60 minutes per day for each discipline on 7 days per week to total 15 hours or more per week. Her expected duration of stay is 21-28 days. It is anticipated that upon discharge she will continue to benefit from nursing , speech and language pathology, a nurse's aide, occupational therapy, and physical therapy. Additionally, she would benefit from a stroke support group. PLAN: 1. Debility following prolonged hospital course. PT and OT to optimize mobility and ADLs toward the independent to modified independent level. 2. Cognitive impairment and mild dysphagia to be assessed and treated by Speech and Language Pathology. Continue methylphenidate. If she appears to be more somnolent in the afternoons, may add a second dose before lunch. We will decrease the amitriptyline dose from 100 mg q.h.s. to 25 mg q.h.s., which is the dose that she was taking prior to her return to the hospital. 3. Weight loss. There will be a energy scheduler consult, and her weight will be followed. 4. Decubitus ulcer. She will have frequent turning and an offloading cushion, and she will have close nursing care to ensure that the decubitus ulcer is healing. Additionally, she needs to have adequate nutrition. 5. Anemia. We will recheck CBC in the morning. Consider iron studies. 6. Hypothyroidism with a TSH of 30 on 06/28/2017. Her thyroid dose has been adjusted, and she should have a recheck in mid to late July of her TSH. She may have a gradual improvement in her cognition due to optimizing her thyroid status. 7. Prevention of vasospasm after coil embolization. A 21-day course of nimodipine would be completed today, July 04, 2017. It will be verified with Neurosurgery whether the nimodipine can be discontinued. 8. Hypertension, currently taking nimodipine as well as lisinopril. Blood pressures will be monitored. She may need an increase in the lisinopril once the nimodipine is discontinued. 9. Urinary retention. Continue bethanechol. When it is ensured that her bowel and bladder function is normalized, there can be a trial of tapering the bethanechol. 10. Prophylaxis. Continue heparin 5000 units b.i.d. as ordered out of the hospital as well as sequential compression devices on her legs at night, and she will be mobilized to the greatest extent possible. If her mobility can return toward normal, then the heparin can be discontinued. 11. Followup: Per hospital discharge information, she is to follow up with neurosurgeon, Dr. Curry, in approximately 2 weeks. If she is still in inpatient rehabilitation unit at that time, followup may be postponed until she is ready to leave. /[id number]/[facility] [place] and [id number], 07/04/17, [address] [facility]
[2017-07-04] MEDS ORDERED: LACTULOSE 20 GM/30 ML UDCUP PO PRN (15:48)
[2017-07-04] MEDS: ACETAMINOPHEN 325 MG TAB PO PRN (17:53)
[2017-07-04] MEDS: BETHANECHOL 10 MG TAB PO SCH ×2 (17:53→20:15)
[2017-07-04] MEDS: niMODipine 30 MG/0.9 ML UDL PO SCH ×2 (17:54→21:29)
[2017-07-04] MEDS: levETIRAcetam 250 MG TAB PO SCH (20:14)
[2017-07-04] MEDS: MELATONIN 3 MG TAB PO SCH (20:15)
[2017-07-04] MEDS: HEPARIN 5,000 UNIT/0.5 ML SYR SC SCH (20:15)
[2017-07-04] MEDS ORDERED: AMITRIPTYLINE HCL 100 MG TAB PO SCH (21:00)
[2017-07-04] MEDS ORDERED: AMITRIPTYLINE HCL 25 MG TAB PO SCH (21:00)
[2017-07-05] MEDS: niMODipine 30 MG/0.9 ML UDL PO SCH ×2 (01:02→05:07)
[2017-07-05] MEDS: levETIRAcetam 250 MG TAB PO SCH ×2 (10:37→20:10)
[2017-07-05] MEDS: BETHANECHOL 10 MG TAB PO SCH ×4 (10:38→20:10)
[2017-07-05] MEDS: MULTIVITAMINS 1 EACH TAB PO SCH (10:38)
[2017-07-05] MEDS: POLYETHYLENE GLYCOL 3350 17 GM PKT PO SCH ×2 (10:40→10:53)
[2017-07-05] MEDS: LISINOPRIL 5 MG TAB PO SCH (10:42)
[2017-07-05] MEDS ORDERED: AMITRIPTYLINE HCL 25 MG TAB PO SCH (11:09)
[2017-07-05] MEDS: HEPARIN 5,000 UNIT/0.5 ML SYR SC SCH ×2 (11:37→20:11)
--- NOTE | 2017-07-05 11:58 | SOAPPROG ---
SOAP Progress Note Assessment/Plan: Assessment: * Debility following prolonged hospital course. PT and OT to optimize mobility and ADLs toward the independent to modified independent level. * Cognitive impairment and mild dysphagia to be assessed and treated by Speech and Language Pathology. Continue methylphenidate. If she appears to be more somnolent in the afternoons, may add a second dose before lunch. Severe cognitive impairment impacts all other aspects of nursing and therapy. Has had extensive evaluation including repeat head CTs and labs including RPR. * Insomnia. Continue melatonin. D/C amitriptyline due to anticholinergic effects. Trial of trazodone 50 mg at HS starting 07/05/2017. * Agitation last night. Was refusing cares. Needed 1-1 monitoring. Eventually attained sleep. D/W Dr. Curry, Neurosurgery. Will D/C levetiracetam. * Weight loss. There will be a tinsmith helper consult, and her weight will be followed. * Decubitus ulcer. She will have frequent turning and an offloading cushion, and she will have close nursing care to ensure that the decubitus ulcer is healing. Additionally, she needs to have adequate nutrition. * Anemia. Check H?H 07/08/2017. Consider iron studies. * Hypothyroidism with a TSH of 30 on 06/28/2017. Her thyroid dose has been adjusted, and she should have a recheck in mid to late July of her TSH. She may have a gradual improvement in her cognition due to optimizing her thyroid status. * Prevention of vasospasm after coil embolization. A 21-day course of nimodipine was completed 07/04/2017. Discussed with nurse surgery. Discontinued pneumonia Pean, 07/05/2017. * Hypertension, continue lisinopril. Monitor for elevated blood pressures with discontinuation of nimodipine. * Urinary retention. Continue bethanechol. When it is ensured that her bowel and bladder function is normalized, there can be a trial of tapering the bethanechol. * Prophylaxis. Continue heparin 5000 units b.i.d. as ordered out of the hospital as well as sequential compression devices on her legs at night, and she will be mobilized to the greatest extent possible. If her mobility can return toward normal, then the heparin can be discontinued. Followup: with neurosurgeon, Dr. Curry after discharge from Inpatient Rehabilitation. 07/05/17 11:39 Subjective: No complaints. Not in pain. Nursing documented a poor night of sleep. When she is asked about sleep she says "I slept upstairs." Objective: Vital Signs Temp Pulse Resp BP Pulse Ox 36.3 C 53 L 16 136/80 H 98 07/05/17 10:42 07/05/17 10:42 07/05/17 10:42 07/05/17 10:42 07/05/17 10:42 07/04/17 07/05/17 07/06/17 05:59 05:59 05:59 Intake Total 260 Output Total 1650 Balance -1390 Physical Exam - Physical Exam General Appearance: alert, no apparent distress, cachetic Respiratory: normal breath sounds, No crackles, No rhonchi, No wheezing Cardiac/Chest: regular rate, rhythm, No edema, No diastolic murmur, No systolic murmur Skin: normal color, warm/dry Neuro/Psych: alert, normal mood/affect, disoriented to place, disoriented to time, other (Arises from seated with help of physical therapist and nurse. Able to grasp front wheeled walker. Does not take any steps but wishes to resume sitting.) ICD10 Worksheet Patient Problems: Problems Problem Status Onset Forehead laceration Acute Hydrocephalus Acute Subarachnoid hemorrhage Acute
[2017-07-05] MEDS: ACETAMINOPHEN 325 MG TAB PO PRN (14:37)
[2017-07-05] MEDS: NICOTINE 14 MG/24 HR PATCH TD SCH (15:25)
[2017-07-05] MEDS: MELATONIN 3 MG TAB PO SCH (20:10)
[2017-07-05] MEDS: traZODone 50 MG TAB PO SCH (20:10)
[2017-07-06] MEDS: levETIRAcetam 250 MG TAB PO SCH (09:10)
[2017-07-06] MEDS: BETHANECHOL 10 MG TAB PO SCH ×4 (09:20→20:26)
[2017-07-06] MEDS: MULTIVITAMINS 1 EACH TAB PO SCH (09:22)
[2017-07-06] MEDS: LISINOPRIL 5 MG TAB PO SCH (09:24)
[2017-07-06] MEDS: NICOTINE 14 MG/24 HR PATCH TD SCH (09:26)
[2017-07-06] MEDS: HEPARIN 5,000 UNIT/0.5 ML SYR SC SCH ×2 (09:27→20:28)
[2017-07-06] MEDS: LEVOTHYROXINE 125 MCG TAB PO SCH (11:55)
--- NOTE | 2017-07-06 13:03 | HOSPPROG ---
Hospitalist Progress Note Assessment/Plan: Assessment: 67 yo F p/w acute encephalopathy following ETHAN rupture and coiling Plan: # Acute encephalopathy. Unclear etiology, potentially 2/2 stimulating effects of ritalin, cog impact of undertreated hypothyroidism, structural/metabolic effects of recent NSGY - unchanged, patient remains directible but disoriented/confused/unable to coherently engage in conversation - explained to patient/ indication for trial of NRT, and requests lowest dosage of NRT given that it has been 30 days since she smoked and he is concerned about the activating effects of NRT (reduced from 14mcg to 7mcg) - per d/w Dr. Curry last week, trial off ritalin to reduce activating effects - cont on tx for hypothyroidism - cont 1:1 - cont trazodone for sleep # Hypothyroidism. Undertreated as outpt, elevated TSH 31, initiated on 125mcg during most recent hospitalization, continue # ETHAN aneurysm/rupture. S/p coiling by Dr. Curry, given potential effects of keppra, decision made to DC by Dr. Duenas, monitor - off nimodipine # Anemia. Check H/H # Pressure injury. POA, cont wound care # HTN. Cont lisinopril 5 # Urinary retention. Cont bethanecol Diet. As tolerates PPx. High risk, hep SC Code. Full Dispo. Ongoing therapy needs Subjective: no pain, patient verbally active this AM Objective: Vital Signs Temp Pulse Resp BP Pulse Ox 36.4 C 90 16 162/103 H 96 07/06/17 08:00 07/06/17 08:00 07/06/17 08:00 07/06/17 09:24 07/06/17 08:00 07/05/17 07/06/17 07/07/17 05:59 05:59 05:59 Intake Total 260 750 Output Total 1650 350 Balance -1390 400 - Physical Exam Constitutional: no apparent distress, not in pain, other (thin appearing), No uncomfortable Cardiovascular: regular rate and rhythym, no murmur, rub, or gallop, No edema Respiratory: no respiratory distress, no rales or rhonchi, clear to auscultation Gastrointestinal: normoactive bowel sounds, soft, non-tender abdomen, no palpable masses Neurologic: other (AAOx1 (person only)), No weakness, No facial droop Psychiatric: not anxious, encephalopathic, poor insight, poor judgement, poor memory, No agitated ICD10 Worksheet Patient Problems: Problems Problem Status Onset Subarachnoid hemorrhage Acute Hydrocephalus Acute Forehead laceration Acute
[2017-07-06] MEDS: ACETAMINOPHEN 325 MG TAB PO PRN (20:26)
[2017-07-06] MEDS: traZODone 50 MG TAB PO SCH (20:26)
[2017-07-06] MEDS: MELATONIN 3 MG TAB PO SCH (20:26)
[2017-07-07] MEDS: ACETAMINOPHEN 325 MG TAB PO PRN ×4 (06:17→21:13)
[2017-07-07] MEDS: LEVOTHYROXINE 125 MCG TAB PO SCH (06:17)
[2017-07-07] MEDS: POLYETHYLENE GLYCOL 3350 17 GM PKT PO SCH (09:27)
[2017-07-07] MEDS: NICOTINE 7 MG/24 HR PATCH TD SCH (09:36)
[2017-07-07] MEDS: LISINOPRIL 5 MG TAB PO SCH (09:37)
[2017-07-07] MEDS: MULTIVITAMINS 1 EACH TAB PO SCH (09:37)
[2017-07-07] MEDS: BETHANECHOL 10 MG TAB PO SCH ×4 (09:37→20:11)
[2017-07-07] MEDS: HEPARIN 5,000 UNIT/0.5 ML SYR SC SCH ×2 (09:38→20:12)
--- NOTE | 2017-07-07 12:11 | HOSPPROG ---
Hospitalist Progress Note Assessment/Plan: Assessment: 67 yo F p/w acute encephalopathy following ETHAN rupture and coiling Plan: # Acute encephalopathy. Unclear etiology, potentially 2/2 stimulating effects of ritalin, cog impact of undertreated hypothyroidism, structural/metabolic effects of recent NSGY - unchanged, patient remains directible but disoriented/confused/unable to coherently engage in conversation - explained to patient/ indication for trial of NRT, and requested lowest dosage of NRT given that it has been 30 days since she smoked and he is concerned about the activating effects of NRT (reduced from 14mcg to 7mcg 07/06) - per d/w Dr. Curry last week, trial off ritalin to reduce activating effects - cont on tx for hypothyroidism - cont 1:1 - cont trazodone for sleep, had improved sleep o/n - anticipate protracted recovery # Hypothyroidism. Undertreated as outpt, elevated TSH 31, initiated on 125mcg during most recent hospitalization, continue # ETHAN aneurysm/rupture. S/p coiling by Dr. Curry, given potential effects of keppra, decision made to DC by Dr. Duenas, monitor - off nimodipine # Anemia. Check H/H 07/08 # Pressure injury. POA, cont wound care # HTN. Cont lisinopril 5 # Urinary retention. Cont bethanecol, patient straight cath'd o/n for volume of 400 - d/w RN, I recommend that patient NOT be awakened at night for straight cath/ urination, unless ureine vol > 500ml (in which case we should trial independent void prior to straight cath'ing), order placed for straight cath if vol > 500ml and unable to void (she voided independently today w/ vol 530ml) Diet. As tolerates PPx. High risk, hep SC Code. Full Dispo. Ongoing therapy needs Subjective: improved sleep o/n, reports easy distractibility during meals Objective: Vital Signs Temp Pulse Resp BP Pulse Ox 36.9 C 87 15 121/78 H 93 07/07/17 06:15 07/07/17 06:15 07/07/17 06:15 07/07/17 09:37 07/07/17 06:15 07/06/17 07/07/17 07/08/17 05:59 05:59 05:59 Intake Total 750 868 Output Total 350 400 Balance 400 468 - Physical Exam Constitutional: no apparent distress, not in pain, cachectic, No uncomfortable Cardiovascular: regular rate and rhythym, systolic murmur (I/ at sternum and apex), No tachycardia, No bradycardia, No edema Respiratory: no respiratory distress, no rales or rhonchi, clear to auscultation Gastrointestinal: normoactive bowel sounds, soft, non-tender abdomen, no palpable masses Neurologic: sensation intact bilaterally, other (AAOx0), No facial droop Psychiatric: encephalopathic, poor insight, poor judgement, poor memory, other ( has difficulty following commands) ICD10 Worksheet Patient Problems: Problems Problem Status Onset Subarachnoid hemorrhage Acute Hydrocephalus Acute Forehead laceration Acute
[2017-07-07] MEDS: MELATONIN 3 MG TAB PO SCH (20:11)
[2017-07-07] MEDS: traZODone 50 MG TAB PO SCH (20:12)
[2017-07-08] MEDS: LEVOTHYROXINE 125 MCG TAB PO SCH (05:02)
[2017-07-08] MEDS: BETHANECHOL 10 MG TAB PO SCH ×4 (08:25→20:26)
[2017-07-08] MEDS: LISINOPRIL 5 MG TAB PO SCH (08:25)
[2017-07-08] MEDS: NICOTINE 7 MG/24 HR PATCH TD SCH (08:25)
[2017-07-08] MEDS: POLYETHYLENE GLYCOL 3350 17 GM PKT PO SCH (08:26)
[2017-07-08] MEDS: MULTIVITAMINS 1 EACH TAB PO SCH (08:26)
[2017-07-08] MEDS: HEPARIN 5,000 UNIT/0.5 ML SYR SC SCH ×2 (08:26→20:26)
--- NOTE | 2017-07-08 09:55 | SOAPPROG ---
SOAP Progress Note Assessment/Plan: Assessment: * Debility following prolonged hospital course. * Initial functional independence measure 29 on 07/08/2017. Bed mobility varies from minimal assist to moderate/maximal assist of 2. Transfers require moderate to maximal assist of 2 she does not engage with therapy. She ambulated 10 ft with a front wheeled walker. Grooming and hygiene requires minimal mole to moderate assist from the wheelchair, upper body dressing moderate to maximal assist, lower body dressing maximal assist, toilet transfer is a 2 person assist. * Continue PT and OT to optimize mobility and ADLs toward the independent to modified independent level. * Cognitive impairment and mild dysphagia. Methylphenidate discontinued per Neurosurgery. * Severe global cognitive impairment impacts all other aspects of nursing and therapy. * Has had extensive evaluation including repeat head CTs and labs including RPR ; no improvement after large volume lumbar puncture. 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 Has adequate alertness so unlikely that a stimulant would help. * Insomnia. Continue melatonin. D/C amitriptyline due to anticholinergic effects. * Sleep status variable with trazodone 50 mg at HS started 07/05/2017. * Increased to 100 mg at HS on 07/08/2017. Observe for over-sedation. * Agitation last night, 07/04/2017. Was refusing cares. Needed 1-1 monitoring. Eventually attained sleep. D/W Dr. Curry, Neurosurgery. D/C'd levetiracetam. * Agitated Behavior Scale 28 on 07/06/2017, 18 to 21 since. * Nicotine replacement did not affect agitation. Will discontinue today, 2017. * Weight loss. * Severe malnutrition per dietitian. Taking 75-100% of meals with a dysphagia 3 texture. * Decubitus ulcer. She will have frequent turning and an offloading cushion, and she will have close nursing care to ensure that the decubitus ulcer is healing. Additionally, she needs to have adequate nutrition. * Anemia. Slightly worse on H/H 07/08/2017. * Reticulocyte count normal but would expected to be elevated. * B12 and folate normal in the hospital. Check iron panel in the morning. * Hypothyroidism with a TSH of 30 on 06/28/2017. Her thyroid dose has been adjusted, and she should have a recheck in mid to late July of her TSH. She may have a gradual improvement in her cognition due to optimizing her thyroid status. * Prevention of vasospasm after coil embolization. A 21-day course of nimodipine was completed 07/04/2017. Discussed with Neurosurgery. Discontinued nimodipine, 07/05/2017. * Hypertension, continue lisinopril. Monitor for elevated blood pressures with discontinuation of nimodipine. * Blood pressure elevated this morning, 07/08/2017. Continue to monitor. * Urinary retention. Continue bethanechol. When it is ensured that her bowel and bladder function is normalized, there can be a trial of tapering the bethanechol. * Prophylaxis. Continue heparin 5000 units b.i.d. as ordered out of the hospital as well as sequential compression devices on her legs at night, and she will be mobilized to the greatest extent possible. If her mobility can return toward normal, then the heparin can be discontinued. Followup: with neurosurgeon, Dr. Curry after discharge from [facility]patient [facility]. Attended staffing, 15 min. Discussed with case management, PT, OT, SHEET METAL WELDER, nursing , dietitian. Very difficult disposition at current level of function, with decubitus ulcer and fall risk. Will staff again on 07/12/2017. Assess weekly for progress. 07/08/17 11:54 Subjective: No complaints. Sitting at breakfast with speech therapist. Sometimes appropriate responses, sometimes empty speech. Objective: Vital Signs Temp Pulse Resp BP Pulse Ox 36.7 C 70 16 162/84 H 94 07/08/17 06:38 07/08/17 06:38 07/08/17 06:38 07/08/17 08:25 07/08/17 06:38 Laboratory Results 07/08/17 05:50 07/07/17 07/08/17 07/09/17 05:59 05:59 05:59 Intake Total 868 720 Output Total 400 600 Balance 468 120 - Time Spent With Patient Time Spent With Patient: Greater than 35 min floor time today, including more than 50% of time in coordination of care during staffing meeting. Physical Exam - Physical Exam General Appearance: WD/WN, alert, no apparent distress Respiratory: normal breath sounds, No crackles, No rhonchi, No wheezing Cardiac/Chest: regular rate, rhythm, No edema Skin: normal color, warm/dry Neuro/Psych: alert, normal mood/affect, cognition abnormalities, No motor weakness ICD10 Worksheet Patient Problems: Problems Problem Status Onset Forehead laceration Acute Hydrocephalus Acute Subarachnoid hemorrhage Acute
[2017-07-08] MEDS: ACETAMINOPHEN 325 MG TAB PO PRN (09:59)
[2017-07-08] MEDS ORDERED: ACETAMINOPHEN 325 MG TAB PO SCH (14:00)
[2017-07-08] MEDS: ACETAMINOPHEN 500 MG TAB PO SCH ×2 (14:46→22:08)
[2017-07-08] MEDS: MELATONIN 3 MG TAB PO SCH (20:27)
[2017-07-08] MEDS: traZODone 50 MG TAB PO SCH (20:27)
[2017-07-09] MEDS: ACETAMINOPHEN 500 MG TAB PO SCH ×3 (05:06→20:33)
[2017-07-09] MEDS: LEVOTHYROXINE 125 MCG TAB PO SCH (05:11)
[2017-07-09] MEDS: BETHANECHOL 10 MG TAB PO SCH ×4 (08:23→20:32)
[2017-07-09] MEDS: HEPARIN 5,000 UNIT/0.5 ML SYR SC SCH ×2 (08:23→20:32)
[2017-07-09] MEDS: MULTIVITAMINS 1 EACH TAB PO SCH (08:24)
[2017-07-09] MEDS: POLYETHYLENE GLYCOL 3350 17 GM PKT PO SCH (08:24)
[2017-07-09] MEDS: LISINOPRIL 5 MG TAB PO SCH (08:34)
--- NOTE | 2017-07-09 11:46 | SOAPPROG ---
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 Duenas. May be appropriate for amantadine. She had significant improvement in her cognition on methylphenidate in the acute care floor. Otherwise, patient appears quite cognitively impaired. Not oriented to place or season, or year. I suspect that a neuro stimulant of some sort will be helpful for her overall cognition and attention. Plan to get more information before making changes. A total of 25 min was spent on the floor in the care of the patient, the majority of which was spent counseling and coordination of care regarding assessment of her prior course from a functional standpoint and research of neurostimulation involvement. Remainder of plan is relatively unchanged today. I counseled her and on the importance of incentive spirometry and demonstrated for them as well. * Debility following prolonged hospital course. * Initial functional independence measure 29 on 07/08/2017. Bed mobility varies from minimal assist to moderate/maximal assist of 2. Transfers require moderate to maximal assist of 2 she does not engage with therapy. She ambulated 10 ft with a front wheeled walker. Grooming and hygiene requires minimal mole to moderate assist from the wheelchair, upper body dressing moderate to maximal assist, lower body dressing maximal assist, toilet transfer is a 2 person assist. * Continue PT and OT to optimize mobility and ADLs toward the independent to modified independent level. * Cognitive impairment and mild dysphagia. Methylphenidate reportedly discontinued per Neurosurgery, plan to follow-up on this history. * Severe global cognitive impairment impacts all other aspects of nursing and therapy. * Has had extensive evaluation including repeat head CTs and labs including RPR ; no improvement after large volume lumbar puncture. 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 Has adequate alertness so unlikely that a stimulant would help. * Insomnia. Continue melatonin. D/C amitriptyline due to anticholinergic effects. * Sleep status variable with trazodone 50 mg at HS started 07/05/2017. * Increased to 100 mg at HS on 07/08/2017. Observe for over-sedation. * Agitation last night, 07/04/2017. Was refusing cares. Needed 1-1 monitoring. Eventually attained sleep. D/W Dr. Curry, Neurosurgery. D/C'd levetiracetam. * Agitated Behavior Scale 28 on 07/06/2017, 18 to 21 since. * Nicotine replacement did not affect agitation. Will discontinue today, 2017. * Weight loss. * Severe malnutrition per dietitian. Taking 75-100% of meals with a dysphagia 3 texture. * Pressure ulcer. She will have frequent turning and an offloading cushion, and she will have close nursing care to ensure that the decubitus ulcer is healing. Additionally, she needs to have adequate nutrition. * Anemia. Slightly worse on H/H 07/08/2017. * Reticulocyte count normal but would expected to be elevated. * B12 and folate normal in the hospital. Check iron panel in the morning. * Hypothyroidism with a TSH of 30 on 06/28/2017. Her thyroid dose has been adjusted, and she should have a recheck in mid to late July of her TSH. She may have a gradual improvement in her cognition due to optimizing her thyroid status. * Prevention of vasospasm after coil embolization. A 21-day course of nimodipine was completed 07/04/2017. Discussed with Neurosurgery. Discontinued nimodipine, 07/05/2017. * Hypertension, continue lisinopril. Monitor for elevated blood pressures with discontinuation of nimodipine. * Blood pressure elevated this morning, 07/08/2017. Continue to monitor. * Urinary retention. Continue bethanechol. When it is ensured that her bowel and bladder function is normalized, there can be a trial of tapering the bethanechol. * Prophylaxis. Continue heparin 5000 units b.i.d. as ordered out of the hospital as well as sequential compression devices on her legs at night, and she will be mobilized to the greatest extent possible. If her mobility can return toward normal, then the heparin can be discontinued. Followup: with neurosurgeon, Dr. Curry after discharge from [facility]patient [facility]. Very difficult disposition at current level of function, with pressure ulcer and fall risk. Will staff again on 07/12/2017. Assess weekly for progress. 07/09/17 11:41 Subjective: Chief complaint: Alertness and attention No acute events overnight. No new shortness of breath or weakness, no new numbness, tingling, or weakness. Patient continues to make slow progress in rehabilitation, cognition quite impaired. Methylphenidate had been stopped per Neurosurgery, unclear what the rationale was. She responded quite well to this on the acute care floor. Planned investigate further. Objective: Vital Signs Temp Pulse Resp BP Pulse Ox 36.8 C 83 16 157/102 H 95 07/09/17 06:41 07/09/17 08:27 07/09/17 06:41 07/09/17 08:34 07/09/17 06:41 Laboratory Results 07/08/17 05:50 07/08/17 07/09/17 07/10/17 05:59 05:59 05:59 Intake Total 720 540 Output Total 600 450 Balance 120 90 Physical Exam - Physical Exam General Appearance: WD/WN, alert, no apparent distress EENT: No scleral icterus (R), No scleral icterus (L) Respiratory: rales, No lungs clear, No normal breath sounds, No respiratory distress, No accessory muscle use, No rhonchi, No wheezing Cardiac/Chest: normal peripheral pulses, regular rate, rhythm, No edema Skin: normal color, warm/dry, No cyanosis, No diaphoresis Neuro/Psych: alert, normal mood/affect, No oriented x 3 (Not oriented to place or date.) ICD10 Worksheet Patient Problems: Problems Problem Status Onset Forehead laceration Acute Hydrocephalus Acute Subarachnoid hemorrhage Acute
[2017-07-09] MEDS ORDERED: PNEUMOC 13-VAL CONJ-DIP CRM/PF 0.5 ML SYR IM ONE (11:53)
[2017-07-09] MEDS: FERROUS SULFATE 325 MG TAB PO SCH (14:13)
[2017-07-09] MEDS: traZODone 50 MG TAB PO SCH (20:32)
[2017-07-09] MEDS: MELATONIN 3 MG TAB PO SCH (20:32)
[2017-07-10] MEDS: ACETAMINOPHEN 500 MG TAB PO SCH ×3 (05:11→20:53)
[2017-07-10] MEDS: LEVOTHYROXINE 125 MCG TAB PO SCH (05:11)
[2017-07-10] MEDS: BETHANECHOL 10 MG TAB PO SCH ×4 (08:46→20:53)
[2017-07-10] MEDS: FERROUS SULFATE 325 MG TAB PO SCH (08:47)
[2017-07-10] MEDS: MULTIVITAMINS 1 EACH TAB PO SCH (08:47)
[2017-07-10] MEDS: LISINOPRIL 5 MG TAB PO SCH ×2 (08:47→10:10)
[2017-07-10] MEDS: POLYETHYLENE GLYCOL 3350 17 GM PKT PO SCH (08:49)
[2017-07-10] MEDS: HEPARIN 5,000 UNIT/0.5 ML SYR SC SCH ×2 (08:59→20:54)
[2017-07-10] MEDS ORDERED: LISINOPRIL 10 MG TAB PO ONE (09:01)
--- NOTE | 2017-07-10 12:06 | SOAPPROG ---
SOAP Progress Note Assessment/Plan: Assessment: * Debility following prolonged hospital course. * Initial functional independence measure 29 on 07/08/2017. Bed mobility varies from minimal assist to moderate/maximal assist of 2. Transfers require moderate to maximal assist of 2 she does not engage with therapy. She ambulated 10 ft with a front wheeled walker. Grooming and hygiene requires minimal mole to moderate assist from the wheelchair, upper body dressing moderate to maximal assist, lower body dressing maximal assist, toilet transfer is a 2 person assist. * Ambulation increased to 75 ft, bilateral hand held assist, step through pattern, on 07/09/2017 * Continue PT and OT to optimize mobility and ADLs toward the independent to modified independent level. * Cognitive impairment and mild dysphagia. Methylphenidate discontinued per Neurosurgery. * Severe global cognitive impairment impacts all other aspects of nursing and therapy. * Has had extensive evaluation including repeat head CTs and labs including RPR ; no improvement after large volume lumbar puncture. 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 Has adequate alertness so unlikely that a stimulant would help. * Calf tenderness and cyanotic feet. * No DVTs on bilateral lower extremity ultrasound. * May have cholesterol emboli from the catheterization procedure. Discussed with patient's son. * Insomnia. Continue melatonin. D/C amitriptyline due to anticholinergic effects. * Sleep status variable with trazodone 50 mg at HS started 07/05/2017. * Increased to 100 mg at HS on 07/08/2017. Observe for over-sedation. * Agitation evening of 07/04/2017. Was refusing cares. Needed 1-1 monitoring. Eventually attained sleep. D/W Dr. Curry, Neurosurgery. D/C'd levetiracetam. * Agitated Behavior Scale 28 on 07/06/2017, 16-18 on 07/08 and * Nicotine replacement did not affect agitation. Discontinued 07/08/2017. * Weight loss. * Severe malnutrition per dietitian. Taking 75-100% of meals with a dysphagia 3 texture. * Initiate daily weights 07/11/2017. * Decubitus ulcer. She will have frequent turning and an offloading cushion, and she will have close nursing care to ensure that the decubitus ulcer is healing. Additionally, she needs to have adequate nutrition. * Anemia. Slightly worse on H/H 07/08/2017. * Reticulocyte count normal but would expected to be elevated. * B12 and folate normal in the hospital. Check iron panel in the morning. * Hypothyroidism with a TSH of 30 on 06/28/2017. Her thyroid dose has been adjusted, and she should have a recheck in mid to late July of her TSH. She may have a gradual improvement in her cognition due to optimizing her thyroid status. * Prevention of vasospasm after coil embolization. A 21-day course of nimodipine was completed 07/04/2017. Discussed with Neurosurgery. Discontinued nimodipine, 07/05/2017. * Hypertension, continue lisinopril. Monitor for elevated blood pressures with discontinuation of nimodipine. * Blood pressure elevated this morning, 07/08/2017. Continue to monitor. * Urinary retention. Continue bethanechol. When it is ensured that her bowel and bladder function is normalized, there can be a trial of tapering the bethanechol. * Prophylaxis. Continue heparin 5000 units b.i.d. as ordered out of the hospital as well as sequential compression devices on her legs at night, and she will be mobilized to the greatest extent possible. If her mobility can return toward normal, then the heparin can be discontinued. Followup: with neurosurgeon, Dr. Curry after discharge from Inpatient Rehabilitation. Very difficult disposition at current level of function, with decubitus ulcer and fall risk. Will staff again on 07/12/2017. Assess weekly for progress. 07/10/17 17:21 Subjective: Nurse notes bluish/purplish discoloration to feet and toes. Patient is without complaints. Denies cough or dyspnea. Objective: Vital Signs Temp Pulse Resp BP Pulse Ox 37.2 C 92 16 148/85 H 92 07/10/17 11:15 07/10/17 06:38 07/10/17 06:38 07/10/17 11:15 07/10/17 06:38 Laboratory Results 07/08/17 05:50 07/09/17 07/10/17 07/11/17 05:59 05:59 05:59 Intake Total 540 350 200 Output Total 450 550 Balance 90 -200 200 - Time Spent With Patient Time Spent With Patient: Greater than 35 min floor time today, including coordination of care regarding ultrasound study and discussion of results 1st with patient's and then with patient's son. Physical Exam - Physical Exam General Appearance: WD/WN, alert, no apparent distress Respiratory: normal breath sounds, No crackles, No rhonchi, No wheezing Cardiac/Chest: regular rate, rhythm, edema (trace B LE), No diastolic murmur, No systolic murmur Peripheral Pulses: 2+: dorsalis-pedis (R), dorsalis-pedis (L) Skin: normal color, warm/dry, other (Distal feet with mild bluish discoloration , moderate over distal toes of the right foot, blanching.) Extremities: calf tenderness (Bilateral proximal) Neuro/Psych: alert, normal mood/affect ICD10 Worksheet Patient Problems: Problems Problem Status Onset Forehead laceration Acute Hydrocephalus Acute Subarachnoid hemorrhage Acute
[2017-07-10] MEDS: MELATONIN 3 MG TAB PO SCH (20:53)
[2017-07-10] MEDS: traZODone 50 MG TAB PO SCH (20:53)
[2017-07-11] MEDS: LEVOTHYROXINE 125 MCG TAB PO SCH (05:31)
[2017-07-11] MEDS: ACETAMINOPHEN 500 MG TAB PO SCH ×3 (05:31→21:31)
[2017-07-11] MEDS: LISINOPRIL 5 MG TAB PO SCH (08:27)
[2017-07-11] MEDS: POLYETHYLENE GLYCOL 3350 17 GM PKT PO SCH (08:27)
[2017-07-11] MEDS: BETHANECHOL 10 MG TAB PO SCH ×4 (08:28→21:29)
[2017-07-11] MEDS: MULTIVITAMINS 1 EACH TAB PO SCH (08:28)
[2017-07-11] MEDS: FERROUS SULFATE 325 MG TAB PO SCH (08:33)
[2017-07-11] MEDS ORDERED: AMANTADINE HCL 100 MG/10 ML UDCUP PO SCH (09:00)
--- NOTE | 2017-07-11 09:35 | SOAPPROG ---
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 Plan to discuss with Dr. Duenas regarding history of blood pressure medications. Plan to add a calcium channel tad, as diuretic may contribute to urinary symptoms. She had fantastic response to methylphenidate in the past , would likely benefit from a trial of neuro stimulant, either methylphenidate again or amantadine. Family states that she was not on blood pressure medications before coming to the hospital. Continue to observe skin rash closely, unclear cause at this point. Obtain CBC to check platelets. Liver function studies as well. Continue to monitor lower extremity swelling, treating symptomatically with leg elevation and encouraging activity. Continue to monitor. A total of 25 min was spent on the floor in the care of the patient, the majority of which spent in counseling and coordination of care regarding blood pressure history and management strategies. Remainder of the plan reviewed and is relatively unchanged. * deconditioning following prolonged hospital course. * Initial functional independence measure 29 on 07/08/2017. Bed mobility varies from minimal assist to moderate/maximal assist of 2. Transfers require moderate to maximal assist of 2 she does not engage with therapy. She ambulated 10 ft with a front wheeled walker. Grooming and hygiene requires minimal mole to moderate assist from the wheelchair, upper body dressing moderate to maximal assist, lower body dressing maximal assist, toilet transfer is a 2 person assist. * Ambulation increased to 75 ft, bilateral hand held assist, step through pattern, on 07/09/2017 * Continue PT and OT to optimize mobility and ADLs toward the independent to modified independent level. * Cognitive impairment and mild dysphagia. Methylphenidate discontinued per Neurosurgery, reasons unclear however. * Severe global cognitive impairment impacts all other aspects of nursing and therapy. * Has had extensive evaluation including repeat head CTs and labs including RPR ; no improvement after large volume lumbar puncture. 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 * Recommend trial of neuro stimulant to be discussed with Dr. Duenas and the team. * Calf tenderness and cyanotic feet. * No DVTs on bilateral lower extremity ultrasound. * May have cholesterol emboli from the catheterization procedure. Discussed with patient's son. * Insomnia. Continue melatonin. D/C amitriptyline due to anticholinergic effects. * Sleep status variable with trazodone 50 mg at HS started 07/05/2017. * Increased to 100 mg at HS on 07/08/2017. Observe for over-sedation. * Agitation evening of 07/04/2017. Was refusing cares. Needed 1-1 monitoring. Eventually attained sleep. D/W Dr. Curry, Neurosurgery. D/C'd levetiracetam. * Agitated Behavior Scale 28 on 07/06/2017, 16-18 on 07/08 and * Nicotine replacement did not affect agitation. Discontinued 07/08/2017. * Weight loss. * Severe malnutrition per dietitian. Taking 75-100% of meals with a dysphagia 3 texture. * Initiate daily weights 07/11/2017. * pressure ulcer. She will have frequent turning and an offloading cushion, and she will have close nursing care to ensure that the decubitus ulcer is healing. Additionally, she needs to have adequate nutrition. * Anemia. Slightly worse on H/H 07/08/2017. * Reticulocyte count normal but would expected to be elevated. * B12 and folate normal in the hospital. Check iron panel in the morning. * Hypothyroidism with a TSH of 30 on 06/28/2017. Her thyroid dose has been adjusted, and she should have a recheck in mid to late July of her TSH. She may have a gradual improvement in her cognition due to optimizing her thyroid status. * Prevention of vasospasm after coil embolization. A 21-day course of nimodipine was completed 07/04/2017. Discussed with Neurosurgery. Discontinued nimodipine, 07/05/2017. * Hypertension, continue lisinopril. Monitor for elevated blood pressures with discontinuation of nimodipine. * Blood pressure elevated this morning, 07/08/2017. Continue to monitor. * Urinary retention. Continue bethanechol. When it is ensured that her bowel and bladder function is normalized, there can be a trial of tapering the bethanechol. * Prophylaxis. Continue heparin 5000 units b.i.d. as ordered out of the hospital as well as sequential compression devices on her legs at night, and she will be mobilized to the greatest extent possible. If her mobility can return toward normal, then the heparin can be discontinued. Followup: with neurosurgeon, Dr. Curry after discharge from Inpatient Rehabilitation. Very difficult disposition at current level of function, with pressure ulcer and fall risk. Will staff again on 07/12/2017. Assess weekly for progress. 07/09/17 11:41 07/11/17 09:31 07/11/17 10:10 07/11/17 10:11 07/11/17 10:14 Subjective: Chief complaint: Lower limb swelling No acute events overnight. No new shortness of breath or chest pain, no new numbness, tingling, or weakness. Patient's family again wondering about the swelling she has had for years in her lower limbs, explained the pathophysiology and treatment options. No new symptoms. States that she has been immobile for quite a long time. Still having urinary symptoms at night. Family also noted that there was some mottling of the skin on patient's hands. He felt this was new. Objective: Vital Signs Temp Pulse Resp BP Pulse Ox 37.5 C 93 16 160/75 H 92 07/11/17 06:22 07/11/17 06:22 07/11/17 06:22 07/11/17 08:27 07/11/17 06:22 Laboratory Results 07/08/17 05:50 07/10/17 07/11/17 07/12/17 05:59 05:59 05:59 Intake Total 350 670 Output Total 550 Balance -200 670 Physical Exam - Physical Exam General Appearance: WD/WN, alert, no apparent distress EENT: No scleral icterus (R), No scleral icterus (L) Respiratory: No respiratory distress, No accessory muscle use Cardiac/Chest: normal peripheral pulses, regular rate, rhythm, edema (1+ bilateral lower extremities, pretibial) Skin: normal color, warm/dry, rash (Small petechia especially on the left hand compared to the right in a glove-like distribution), No cyanosis, No diaphoresis Extremities: non-tender, pedal edema, No calf tenderness Neuro/Psych: alert, normal mood/affect, other (Continues to be disoriented) ICD10 Worksheet Patient Problems: Problems Problem Status Onset Forehead laceration Acute Hydrocephalus Acute Subarachnoid hemorrhage Acute
[2017-07-11] MEDS: HEPARIN 5,000 UNIT/0.5 ML SYR SC SCH ×2 (09:54→21:29)
[2017-07-11] MEDS: MELATONIN 3 MG TAB PO SCH (21:29)
[2017-07-11] MEDS: traZODone 50 MG TAB PO SCH (21:29)
[2017-07-12] MEDS: LEVOTHYROXINE 125 MCG TAB PO SCH (06:18)
[2017-07-12] MEDS: ACETAMINOPHEN 500 MG TAB PO SCH ×3 (06:18→21:09)
[2017-07-12] MEDS: BETHANECHOL 10 MG TAB PO SCH ×4 (08:28→21:25)
[2017-07-12] MEDS: POLYETHYLENE GLYCOL 3350 17 GM PKT PO SCH (09:19)
[2017-07-12] MEDS: LISINOPRIL 5 MG TAB PO SCH (09:20)
[2017-07-12] MEDS: FERROUS SULFATE 325 MG TAB PO SCH (09:20)
[2017-07-12] MEDS: MULTIVITAMINS 1 EACH TAB PO SCH (09:21)
[2017-07-12] MEDS: HEPARIN 5,000 UNIT/0.5 ML SYR SC SCH ×2 (09:30→21:11)
--- NOTE | 2017-07-12 12:35 | SOAPPROG ---
SOAP Progress Note Assessment/Plan: Assessment: * Debility following prolonged hospital course. * Initial functional independence measure 29 on 07/08/2017. Bed mobility varies from minimal assist to moderate/maximal assist of 2. Transfers require moderate to maximal assist of 2 she does not engage with therapy. She ambulated 10 ft with a front wheeled walker. Grooming and hygiene requires minimal mole to moderate assist from the wheelchair, upper body dressing moderate to maximal assist, lower body dressing maximal assist, toilet transfer is a 2 person assist. * Ambulation increased to 75 ft, bilateral hand held assist, step through pattern, on 07/09/2017 * Improved participation and improved function. Upper body dressing standby assist and lower body moderate assist as of 07/12/2017 * Continue PT and OT to optimize mobility and ADLs toward the independent to modified independent level. * Cognitive impairment and mild dysphagia. Methylphenidate discontinued per Neurosurgery. * Severe global cognitive impairment impacts all other aspects of nursing and therapy. * Has had extensive evaluation including repeat head CTs and labs including RPR ; no improvement after large volume lumbar puncture. 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 Has adequate alertness so unlikely that a stimulant would help. * Calf tenderness and cyanotic feet. * No DVTs on bilateral lower extremity ultrasound. * May have cholesterol emboli from the catheterization procedure. Discussed with patient's son. * Labs ordered for 07/12/2017 regarding cyanosis of feet are unrevealing. * Insomnia. Continue melatonin. D/C amitriptyline due to anticholinergic effects. * Sleep status variable with trazodone 50 mg at HS started 07/05/2017. * Increased to 100 mg at HS on 07/08/2017. Observe for over-sedation. * Agitation evening of 07/04/2017. Was refusing cares. Needed 1-1 monitoring. Eventually attained sleep. D/W Dr. Curry, Neurosurgery. D/C'd levetiracetam. * Agitated Behavior Scale 28 on 07/06/2017, 16-18 on 07/08 and * Nicotine replacement did not affect agitation. Discontinued 07/08/2017. * Weight loss. * Severe malnutrition per dietitian. Taking 75-100% of meals with a dysphagia 3 texture. * Initiate daily weights 07/11/2017. * Decubitus ulcer. She will have frequent turning and an offloading cushion, and she will have close nursing care to ensure that the decubitus ulcer is healing. Additionally, she needs to have adequate nutrition. * Anemia. Slightly worse on H/H 07/08/2017. * Reticulocyte count normal but would expected to be elevated. * B12 and folate normal in the hospital. Iron deficient on labs 07/09/2017, and iron supplement started. * Repeat CBC with improvement 07/12/2017. * Hypothyroidism with a TSH of 30 on 06/28/2017. Her thyroid dose has been adjusted, and she should have a recheck in mid to late July of her TSH. She may have a gradual improvement in her cognition due to optimizing her thyroid status. * Prevention of vasospasm after coil embolization. A 21-day course of nimodipine was completed 07/04/2017. Discussed with Neurosurgery. Discontinued nimodipine, 07/05/2017. * Hypertension, continue lisinopril. Monitor for elevated blood pressures with discontinuation of nimodipine. * Blood pressure elevated this morning, 07/08/2017. Continue to monitor. * Urinary retention. Continue bethanechol. When it is ensured that her bowel and bladder function is normalized, there can be a trial of tapering the bethanechol. * Prophylaxis. Continue heparin 5000 units b.i.d. as ordered out of the hospital as well as sequential compression devices on her legs at night, and she will be mobilized to the greatest extent possible. If her mobility can return toward normal, then the heparin can be discontinued. Followup: with neurosurgeon, Dr. Curry after discharge from [facility]patient [facility]. Very difficult disposition at current level of function, with decubitus ulcer and fall risk. Will staff again on 07/15/2017. Assess weekly for progress. 07/12/17 14:28 Subjective: No complaints. Enjoyed breakfast but can't remember what she ate. Sleeping well. No cough or dyspnea, no fevers or chills. Noted to have urinary incontinence x2 overnight. Objective: Vital Signs Temp Pulse Resp BP Pulse Ox 37.2 C 94 16 138/87 H 98 07/12/17 06:47 07/12/17 08:46 07/12/17 06:47 07/12/17 08:46 07/12/17 06:47 Laboratory Results 07/08/17 05:50 07/11/17 07/12/17 07/13/17 05:59 05:59 05:59 Intake Total 670 677 120 Output Total 892 796 Balance 670 -73 -637 Physical Exam - Physical Exam General Appearance: WD/WN, alert, no apparent distress, thin Respiratory: normal breath sounds, No crackles, No rhonchi, No wheezing Cardiac/Chest: regular rate, rhythm, No edema, No diastolic murmur, No systolic murmur Skin: normal color, warm/dry Neuro/Psych: alert, normal mood/affect, cognition abnormalities ICD10 Worksheet Patient Problems: Problems Problem Status Onset Forehead laceration Acute Hydrocephalus Acute Subarachnoid hemorrhage Acute
[2017-07-12 14:03] LABS: PLATELET COUNT 303 10^3/uL (150-400)
[2017-07-12 14:13] LABS: INR 0.87 (0.83-1.16); PROTIME(PATIENT) 12.1 SEC (12.0-15.0)
--- NOTE | 2017-07-12 15:29 | WOCRNPDOC ---
WOCRN Advanced Assessment Note - Skin Integrity Problem, Advanced Assess Coccyx Dressing Type: Allevyn Life Dressing Description: Intact Exudate Amount: None Integumentary Issue Intervention: Visualized Under Dressing Prerna Wound Tissue: Blanching, Intact Prerna Wound Swelling: None Skin Integrity Problem Comment: Previous stage 2 on patient's coccyx is now fully healed, epithelialized throughout. Periwound skin intact. New epithelium over the coccyx remains fragile, and patient has a low BMI, which puts her at risk for another pressure injury. Will continue w/ dressing without the hydrogel to protect site, and continue w/ pressure-relieving interventions. home care attendant Karli present to visualize wound and assist.
[2017-07-12] MEDS: MELATONIN 3 MG TAB PO SCH (21:08)
[2017-07-12] MEDS: traZODone 50 MG TAB PO SCH (21:09)
[2017-07-13] MEDS: LEVOTHYROXINE 125 MCG TAB PO SCH (06:15)
[2017-07-13] MEDS: ACETAMINOPHEN 500 MG TAB PO SCH ×3 (06:15→20:56)
[2017-07-13] MEDS: BETHANECHOL 10 MG TAB PO SCH ×4 (08:28→20:40)
[2017-07-13] MEDS: MULTIVITAMINS 1 EACH TAB PO SCH (09:50)
[2017-07-13] MEDS: LISINOPRIL 5 MG TAB PO SCH (09:51)
[2017-07-13] MEDS: POLYETHYLENE GLYCOL 3350 17 GM PKT PO SCH (09:51)
[2017-07-13] MEDS: HEPARIN 5,000 UNIT/0.5 ML SYR SC SCH ×2 (09:51→20:40)
[2017-07-13] MEDS: FERROUS SULFATE 325 MG TAB PO SCH (09:51)
--- NOTE | 2017-07-13 11:06 | SOAPPROG ---
SOAP Progress Note Assessment/Plan: Assessment: * Debility following prolonged hospital course. * Initial functional independence measure 29 on 07/08/2017. Bed mobility varies from minimal assist to moderate/maximal assist of 2. Transfers require moderate to maximal assist of 2 she does not engage with therapy. Grooming and hygiene requires minimal mole to moderate assist from the wheelchair, upper body dressing moderate to maximal assist, lower body dressing maximal assist, toilet transfer is a 2 person assist. * Ambulation increased to 7O FEET X2 WITH GAIT BELT. * Improved participation and improved function. Upper body dressing standby assist and lower body moderate assist as of 07/12/2017 * Continue PT and OT to optimize mobility and ADLs toward the independent to modified independent level. * Cognitive impairment and mild dysphagia. Methylphenidate discontinued per Neurosurgery. * Severe global cognitive impairment impacts all other aspects of nursing and therapy. * Has had extensive evaluation including repeat head CTs and labs including RPR ; no improvement after large volume lumbar puncture. * Continue efforts of UTILITY TENDER CARDING. Has adequate alertness so unlikely that a stimulant would help. * Calf tenderness and cyanotic feet. * No DVTs on bilateral lower extremity ultrasound. * May have cholesterol emboli from the catheterization procedure. Discussed with patient's son. * Labs ordered for 07/12/2017 regarding cyanosis of feet are unrevealing. * Insomnia. Continue melatonin. D/C amitriptyline due to anticholinergic effects. * Sleep status variable with trazodone 50 mg at HS started 07/05/2017. * Increased to 100 mg at HS on 07/08/2017. Observe for over-sedation. * Agitation evening of 07/04/2017. Was refusing cares. Needed 1-1 monitoring. Eventually attained sleep. D/W Dr. Curry, Neurosurgery. D/C'd levetiracetam. * Agitated Behavior Scale 28 on 07/06/2017, 16-18 on 07/08 and * Nicotine replacement did not affect agitation. Discontinued 07/08/2017. * Weight loss. * Severe malnutrition per dietitian. Taking 75-100% of meals with a dysphagia 3 texture. * Initiate daily weights 07/11/2017. * Decubitus ulcer. She will have frequent turning and an offloading cushion, and she will have close nursing care to ensure that the decubitus ulcer is healing. Additionally, she needs to have adequate nutrition. * Anemia. Slightly worse on H/H 07/08/2017. * Reticulocyte count normal but would expected to be elevated. * B12 and folate normal in the hospital. Iron deficient on labs 07/09/2017, and iron supplement started. * Repeat CBC with improvement 07/12/2017. * Hypothyroidism with a TSH of 30 on 06/28/2017. Her thyroid dose has been adjusted, and she should have a recheck in mid to late July of her TSH. She may have a gradual improvement in her cognition due to optimizing her thyroid status. * Prevention of vasospasm after coil embolization. A 21-day course of nimodipine was completed 07/04/2017. Discussed with Neurosurgery. Discontinued nimodipine, 07/05/2017. * Hypertension, continue lisinopril. Monitor for elevated blood pressures with discontinuation of nimodipine. * Blood pressure THIS A.M. 122/91 WILL CONSIDER INCREASING DOSAGE OF LISINOPRIL IF NEXT BP IS ELEVATED. * Urinary retention. Continue bethanechol. When it is ensured that her bowel and bladder function is normalized, there can be a trial of tapering the bethanechol. * Prophylaxis. Continue heparin 5000 units b.i.d. as ordered out of the hospital as well as sequential compression devices on her legs at night, and she will be mobilized to the greatest extent possible. If her mobility can return toward normal, then the heparin can be discontinued. Followup: with neurosurgeon, Dr. Curry after discharge from [facility]. Very difficult disposition at current level of function, with decubitus ulcer and fall risk. Will staff again on 07/15/2017. Assess weekly for progress. Plan: 07/13/17 11:00 Subjective: NO COMPLAINTS PER OR THERAPY STAFF. Objective: Vital Signs Temp Pulse Resp BP Pulse Ox 36.8 C 95 15 122/91 H 96 07/13/17 08:00 07/13/17 08:00 07/13/17 08:00 07/13/17 08:00 07/13/17 08:00 Laboratory Results 07/12/17 13:34 07/12/17 13:34 07/12/17 07/13/17 07/14/17 05:59 05:59 05:59 Intake Total 677 560 480 Output Total 750 1300 Balance -73 -740 480 PT 12.1 SEC (12.0-15.0) 07/12/17 13:34 INR 0.87 (0.83-1.16) 07/12/17 13:34 Physical Exam - Physical Exam General Appearance: alert, no apparent distress Respiratory: lungs clear, normal breath sounds Cardiac/Chest: No edema Neuro/Psych: cognition abnormalities, speech abnormalities ICD10 Worksheet Patient Problems: Problems Problem Status Onset Forehead laceration Acute Hydrocephalus Acute Subarachnoid hemorrhage Acute
[2017-07-13] MEDS: MELATONIN 3 MG TAB PO SCH (20:39)
[2017-07-13] MEDS: traZODone 50 MG TAB PO SCH (20:39)
[2017-07-14] MEDS: ACETAMINOPHEN 500 MG TAB PO SCH ×3 (05:34→21:37)
[2017-07-14] MEDS: LEVOTHYROXINE 125 MCG TAB PO SCH (05:34)
[2017-07-14] MEDS: BETHANECHOL 10 MG TAB PO SCH ×4 (07:56→21:36)
--- NOTE | 2017-07-14 08:32 | SOAPPROG ---
SOAP Progress Note Assessment/Plan: Assessment: * Debility following prolonged hospital course. * Initial functional independence measure 29 on 07/08/2017. Bed mobility varies from minimal assist to moderate/maximal assist of 2. Transfers require moderate to maximal assist of 2 she does not engage with therapy. Grooming and hygiene requires minimal mole to moderate assist from the wheelchair, upper body dressing moderate to maximal assist, lower body dressing maximal assist, toilet transfer is a 2 person assist. * Ambulation increased to 7O FEET X2 WITH GAIT BELT. * Improved participation and improved function. Upper body dressing standby assist and lower body moderate assist as of 07/12/2017 * Continue PT and OT to optimize mobility and ADLs toward the independent to modified independent level. * Cognitive impairment and mild dysphagia. Methylphenidate discontinued per Neurosurgery. * Severe global cognitive impairment impacts all other aspects of nursing and therapy. * Has had extensive evaluation including repeat head CTs and labs including RPR ; no improvement after large volume lumbar puncture. 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 Has adequate alertness so unlikely that a stimulant would help. * Calf tenderness and cyanotic feet. CALVES NONTENDER. NO EVIDENCE ON PHYSICAL EXAM OF DEEP VENOUS THROMBOSIS. * No DVTs on bilateral lower extremity ultrasound. * May have cholesterol emboli from the catheterization procedure. Discussed with patient's son. * Labs ordered for 07/12/2017 regarding cyanosis of feet are unrevealing. * Insomnia. Continue melatonin. D/C amitriptyline due to anticholinergic effects. * Sleep status variable with trazodone 50 mg at HS started 07/05/2017. * Increased to 100 mg at HS on 07/08/2017. Observe for over-sedation. * Agitation evening of 07/04/2017. NONE REPORTED BY NURSING STAFF THIS WEEKEND. Was refusing cares. Needed 1-1 monitoring. Eventually attained sleep. D/W Dr. Curry, Neurosurgery. D/C'd levetiracetam. * Agitated Behavior Scale 28 on 07/06/2017, 16-18 on 07/08 and * Nicotine replacement did not affect agitation. Discontinued 07/08/2017. * Weight loss. * Severe malnutrition per dietitian. Taking 75-100% of meals with a dysphagia 3 texture. * Initiate daily weights 07/11/2017. * Decubitus ulcer. She will have frequent turning and an offloading cushion, and she will have close nursing care to ensure that the decubitus ulcer is healing. Additionally, she needs to have adequate nutrition. * Anemia. Slightly worse on H/H 07/08/2017. * Reticulocyte count normal but would expected to be elevated. * B12 and folate normal in the hospital. Iron deficient on labs 07/09/2017, and iron supplement started. * Repeat CBC with improvement 07/12/2017. * Hypothyroidism with a TSH of 30 on 06/28/2017. Her thyroid dose has been adjusted, and she should have a recheck in mid to late July of her TSH. She may have a gradual improvement in her cognition due to optimizing her thyroid status. * Prevention of vasospasm after coil embolization. A 21-day course of nimodipine was completed 07/04/2017. Discussed with Neurosurgery. Discontinued nimodipine, 07/05/2017. * Hypertension, continue lisinopril. Monitor for elevated blood pressures with discontinuation of nimodipine. * Blood pressure THIS A.M. 122/91 WILL CONSIDER INCREASING DOSAGE OF LISINOPRIL IF NEXT BP IS ELEVATED. * Urinary retention. Continue bethanechol. When it is ensured that her bowel and bladder function is normalized, there can be a trial of tapering the bethanechol. * Prophylaxis. Continue heparin 5000 units b.i.d. as ordered out of the hospital as well as sequential compression devices on her legs at night, and she will be mobilized to the greatest extent possible. If her mobility can return toward normal, then the heparin can be discontinued. Followup: with neurosurgeon, Dr. Curry after discharge from [facility]patient [facility]. Very difficult disposition at current level of function, with decubitus ulcer and fall risk. Will staff again on 07/15/2017. Assess weekly for progress. Plan: 07/13/17 11:00 07/14/17 08:31 Subjective: SHE DOES NOT VERBALIZE ANY COMPLAINTS. NO PROBLEMS REPORTED BY NURSING STAFF. Objective: Vital Signs Temp Pulse Resp BP Pulse Ox 36.8 C 77 17 167/88 H 93 07/14/17 06:21 07/14/17 06:21 07/14/17 06:21 07/14/17 06:21 07/14/17 06:21 Laboratory Results 07/12/17 13:34 07/12/17 13:34 07/13/17 07/14/17 07/15/17 05:59 05:59 05:59 Intake Total 560 1240 Output Total 1300 400 Balance -740 840 PT 12.1 SEC (12.0-15.0) 07/12/17 13:34 INR 0.87 (0.83-1.16) 07/12/17 13:34 Physical Exam - Physical Exam General Appearance: WD/WN, alert, no apparent distress, thin Respiratory: lungs clear, normal breath sounds Cardiac/Chest: No edema Abdomen: non-tender, soft Skin: normal color, warm/dry Extremities: No calf tenderness, No swelling, No Maritza's sign Neuro/Psych: alert, cognition abnormalities (FOLLOWS COMMANDS ONLY INTERMITTENTLY. SOMEWHAT TANGENTIAL CONVERSATION.), No oriented x 3 ICD10 Worksheet Patient Problems: Problems Problem Status Onset Forehead laceration Acute Hydrocephalus Acute Subarachnoid hemorrhage Acute
[2017-07-14] MEDS: LISINOPRIL 20 MG TAB PO SCH (09:08)
[2017-07-14] MEDS: MULTIVITAMINS 1 EACH TAB PO SCH (09:08)
[2017-07-14] MEDS: POLYETHYLENE GLYCOL 3350 17 GM PKT PO SCH (09:08)
[2017-07-14] MEDS: FERROUS SULFATE 325 MG TAB PO SCH (09:08)
[2017-07-14] MEDS: HEPARIN 5,000 UNIT/0.5 ML SYR SC SCH ×2 (09:08→21:37)
[2017-07-14] MEDS: traZODone 50 MG TAB PO SCH (21:37)
[2017-07-14] MEDS: MELATONIN 3 MG TAB PO SCH (21:37)
[2017-07-15] MEDS: ACETAMINOPHEN 500 MG TAB PO SCH ×3 (05:50→20:28)
[2017-07-15] MEDS: LEVOTHYROXINE 125 MCG TAB PO SCH (05:51)
[2017-07-15] MEDS: POLYETHYLENE GLYCOL 3350 17 GM PKT PO SCH (07:48)
[2017-07-15] MEDS: BETHANECHOL 10 MG TAB PO SCH ×4 (07:48→20:28)
[2017-07-15] MEDS: FERROUS SULFATE 325 MG TAB PO SCH (07:49)
[2017-07-15] MEDS: HEPARIN 5,000 UNIT/0.5 ML SYR SC SCH ×2 (07:49→20:29)
[2017-07-15] MEDS: LISINOPRIL 20 MG TAB PO SCH (07:49)
[2017-07-15] MEDS: MULTIVITAMINS 1 EACH TAB PO SCH (07:49)
--- NOTE | 2017-07-15 09:47 | SOAPPROG ---
SOAP Progress Note Assessment/Plan: Assessment: * Debility following prolonged hospital course. * Initial functional independence measure 29 on 07/08/2017; improved to 35 as of 07/15/2017. Standby assist to contact guard assist for bed mobility. Transfers required minimal assist with no device. She ambulated 50-60 feet with a front wheeled walker and minimal assist due to cognitive impairment. Grooming and hygiene is done seated with minimal assist to standby assist. Lower body dressing requires cuing and moderate assist upper body dressing is much more automatic. Shower transfer requires minimal to moderate assistance. Bathing requires contact guard assist and cues. 2 person transfer for nursing and still with alarms and roll belt. * Improved participation and improved function. Upper body dressing standby assist and lower body moderate assist as of 07/12/2017 * Continue PT and OT to optimize mobility and ADLs toward the independent to modified independent level. * Cognitive impairment and mild dysphagia. Methylphenidate discontinued per Neurosurgery. * Severe global cognitive impairment impacts all other aspects of nursing and therapy. * Has had extensive evaluation including repeat head CTs and labs including RPR ; no improvement after large volume lumbar puncture. 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 Has adequate alertness so unlikely that a stimulant would help. * Calf tenderness and cyanotic feet. * No DVTs on bilateral lower extremity ultrasound. * May have cholesterol emboli from the catheterization procedure. Discussed with patient's son. * Labs ordered for 07/12/2017 regarding cyanosis of feet are unrevealing. * Hypertension, continue lisinopril. * Amlodipine added 07/11/2017 at 2.5 mg QD. * BP continues elevated. Is orthostatic but not symptomatic. Increase amlodipine to 5 mg q.day starting 07/15/2017. * Insomnia. D/C'd amitriptyline due to anticholinergic effects. * Sleep status variable with trazodone 50 mg at HS started 07/05/2017. * Increased to 100 mg at HS on 07/08/2017. Observe for over-sedation. * Agitation evening of 07/04/2017. Agitation has resolved. D/C monitoring of Agitated Behavior Scale 07/15/17. * Was refusing cares. Needed 1-1 monitoring. Eventually attained sleep. D/W Dr. Curry, Neurosurgery. D/C'd levetiracetam. * Nicotine replacement did not affect agitation. Discontinued 07/08/2017. * Weight loss. * Severe malnutrition per dietitian. Taking 75-100% of meals with a dysphagia 3 texture. * Initiate daily weights 07/11/2017. Gaining weight; up to 2.9 kg as of 2017.. * Decubitus ulcer. Healed, per nursing 07/15/2017. * Continue frequent turning, protective dressing, efforts at improving nutrition. * Anemia. Slightly worse on H/H 07/08/2017. * Reticulocyte count normal but would expected to be elevated. * B12 and folate normal in the hospital. Iron deficient on labs 07/09/2017, and iron supplement started. * Repeat CBC with improvement 07/12/2017. * Hypothyroidism with a TSH of 30 on 06/28/2017. Her thyroid dose has been adjusted, and she should have a recheck in mid to late July of her TSH. She may have a gradual improvement in her cognition due to optimizing her thyroid status. * Prevention of vasospasm after coil embolization. A 21-day course of nimodipine was completed 07/04/2017. Discussed with Neurosurgery. Discontinued nimodipine, 07/05/2017. * Urinary retention. Continue bethanechol. When it is ensured that her bowel and bladder function is normalized, there can be a trial of tapering the bethanechol. * Prophylaxis. Continue heparin 5000 units b.i.d. as ordered out of the hospital as well as sequential compression devices on her legs at night, and she will be mobilized to the greatest extent possible. If her mobility can return toward normal, then the heparin can be discontinued. Followup: with neurosurgeon, Dr. Curry after discharge from [facility]patient [facility]. Attended staffing, 15 min. Discussed with case management, nursing, dietitian, PT, OT, SHELLFISH MANAGER. Very difficult disposition at current level of function, with continuing need for alarms and roll belt. However she is improving. Tentative discharge date set for 07/24/2017, most likely to SNF, possibly for long-term care. 07/15/17 11:26 Subjective: No complaints this morning. She denies feeling dizzy or lightheaded when she stands. OT reports that she is developing awareness that she is not thinking the way she used to. Objective: Vital Signs Temp Pulse Resp BP Pulse Ox 36.8 C 77 16 164/94 H 91 L 07/15/17 06:44 07/15/17 07:33 07/15/17 06:44 07/15/17 07:33 07/15/17 06:44 Laboratory Results 07/12/17 13:34 07/12/17 13:34 07/14/17 07/15/17 07/16/17 05:59 05:59 05:59 Intake Total 1240 1100 120 Output Total 400 1150 Balance 840 -50 120 PT 12.1 SEC (12.0-15.0) 07/12/17 13:34 INR 0.87 (0.83-1.16) 07/12/17 13:34 - Time Spent With Patient Time Spent With Patient: Greater than 35 min floor time today, including more than 50% of time in coordination of care during staffing meeting, and counseling patient and . Physical Exam - Physical Exam General Appearance: WD/WN, alert, no apparent distress, thin Respiratory: normal breath sounds, No crackles, No rhonchi, No wheezing Cardiac/Chest: regular rate, rhythm, No edema, No JVD, No diastolic murmur, No systolic murmur Skin: normal color, warm/dry Neuro/Psych: alert, normal mood/affect ICD10 Worksheet Patient Problems: Problems Problem Status Onset Forehead laceration Acute Hydrocephalus Acute Subarachnoid hemorrhage Acute
[2017-07-15] MEDS: traZODone 50 MG TAB PO SCH (20:28)
[2017-07-16] MEDS: ACETAMINOPHEN 500 MG TAB PO SCH ×3 (05:29→21:41)
[2017-07-16] MEDS: LEVOTHYROXINE 125 MCG TAB PO SCH (05:30)
[2017-07-16] MEDS: BETHANECHOL 10 MG TAB PO SCH ×4 (07:56→20:38)
[2017-07-16] MEDS: HEPARIN 5,000 UNIT/0.5 ML SYR SC SCH ×2 (07:58→20:37)
[2017-07-16] MEDS: POLYETHYLENE GLYCOL 3350 17 GM PKT PO SCH (09:15)
[2017-07-16] MEDS: MULTIVITAMINS 1 EACH TAB PO SCH (09:16)
[2017-07-16] MEDS: LISINOPRIL 20 MG TAB PO SCH (09:16)
[2017-07-16] MEDS: FERROUS SULFATE 325 MG TAB PO SCH (09:16)
--- NOTE | 2017-07-16 11:21 | SOAPPROG ---
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 She is okay with trying thigh-high Brendan hose for blood pressure and edema management. Blood pressures been slightly high but variable, continue to monitor without changes to pharmacologic strategy at this point. A total of 25 min was spent on the floor in the care of the patient, the majority of which spent in counseling and coordination of care regarding blood pressure history and management strategies. Remainder of the plan reviewed and is relatively unchanged. Amlodipine was recently increased to 5 mg daily. * Debility following prolonged hospital course. * Initial functional independence measure 29 on 07/08/2017; improved to 35 as of 07/15/2017. Standby assist to contact guard assist for bed mobility. Transfers required minimal assist with no device. She ambulated 50-60 feet with a front wheeled walker and minimal assist due to cognitive impairment. Grooming and hygiene is done seated with minimal assist to standby assist. Lower body dressing requires cuing and moderate assist upper body dressing is much more automatic. Shower transfer requires minimal to moderate assistance. Bathing requires contact guard assist and cues. 2 person transfer for nursing and still with alarms and roll belt. * Improved participation and improved function. Upper body dressing standby assist and lower body moderate assist as of 07/12/2017 * Continue PT and OT to optimize mobility and ADLs toward the independent to modified independent level. * Cognitive impairment and mild dysphagia. Methylphenidate discontinued per Neurosurgery. * Severe global cognitive impairment impacts all other aspects of nursing and therapy. * Has had extensive evaluation including repeat head CTs and labs including RPR ; no improvement after large volume lumbar puncture. 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 Has adequate alertness so unlikely that a stimulant would help. * Calf tenderness and cyanotic feet. * No DVTs on bilateral lower extremity ultrasound. * May have cholesterol emboli from the catheterization procedure. Discussed with patient's son. * Labs ordered for 07/12/2017 regarding cyanosis of feet are unrevealing. * Hypertension, continue lisinopril. * Amlodipine 5 mg daily * BP continues elevated. Is orthostatic but not symptomatic. Increase amlodipine to 5 mg q.day starting 07/15/2017. * Insomnia. D/C'd amitriptyline due to anticholinergic effects. * Sleep status variable with trazodone 50 mg at HS started 07/05/2017. * Increased to 100 mg at HS on 07/08/2017. Observe for over-sedation. * Agitation evening of 07/04/2017. Agitation has resolved. D/C monitoring of Agitated Behavior Scale 07/15/17. * Was refusing cares. Needed 1-1 monitoring. Eventually attained sleep. D/W Dr. Curry, Neurosurgery. D/C'd levetiracetam. * Nicotine replacement did not affect agitation. Discontinued 07/08/2017. * Weight loss. * Severe malnutrition per dietitian. Taking 75-100% of meals with a dysphagia 3 texture. * Initiate daily weights 07/11/2017. Gaining weight; up to 2.9 kg as of 2017.. * Decubitus ulcer. Healed, per nursing 07/15/2017. * Continue frequent turning, protective dressing, efforts at improving nutrition. * Anemia. Slightly worse on H/H 07/08/2017. * Reticulocyte count normal but would expected to be elevated. * B12 and folate normal in the hospital. Iron deficient on labs 07/09/2017, and iron supplement started. * Repeat CBC with improvement 07/12/2017. * Hypothyroidism with a TSH of 30 on 06/28/2017. Her thyroid dose has been adjusted, and she should have a recheck in mid to late July of her TSH. She may have a gradual improvement in her cognition due to optimizing her thyroid status. * Prevention of vasospasm after coil embolization. A 21-day course of nimodipine was completed 07/04/2017. Discussed with Neurosurgery. Discontinued nimodipine, 07/05/2017. * Urinary retention. Continue bethanechol. When it is ensured that her bowel and bladder function is normalized, there can be a trial of tapering the bethanechol. * Prophylaxis. Continue heparin 5000 units b.i.d. as ordered out of the hospital as well as sequential compression devices on her legs at night, and she will be mobilized to the greatest extent possible. If her mobility can return toward normal, then the heparin can be discontinued. Followup: with neurosurgeon, Dr. Curry after discharge from [facility]patient [facility]. Very difficult disposition at current level of function, with continuing need for alarms and roll belt. However she is improving. Tentative discharge date set for 07/24/2017, most likely to SNF, possibly for long-term care. 07/09/17 11:41 07/11/17 09:31 07/11/17 10:10 07/11/17 10:11 07/11/17 10:14 07/16/17 11:18 Subjective: Chief complaint: Orthostatic hypotension No acute events overnight. Patient denies any new shortness of breath or chest pain, no new numbness, tingling, or weakness. Regarding orthostasis, she says that she does get dizzy when she stands up at times. She was positive for orthostatic hypotension on vital Signs the other day. She has not worn Brendan hose recently but notes that she did in the past but had more difficulty getting them on lately with swelling of her feet. She would be interested in trying some now. Objective: Vital Signs Temp Pulse Resp BP Pulse Ox 37.7 C 83 20 145/85 H 90 L 07/16/17 05:08 07/16/17 05:08 07/16/17 05:08 07/16/17 09:16 07/16/17 05:08 Laboratory Results 07/12/17 13:34 07/12/17 13:34 07/15/17 07/16/17 07/17/17 05:59 05:59 05:59 Intake Total 1100 1280 180 Output Total 1150 600 300 Balance -50 680 -120 PT 12.1 SEC (12.0-15.0) 07/12/17 13:34 INR 0.87 (0.83-1.16) 07/12/17 13:34 Physical Exam - Physical Exam General Appearance: alert, no apparent distress EENT: No scleral icterus (R), No scleral icterus (L) Respiratory: rales, No respiratory distress, No accessory muscle use, No rhonchi , No wheezing Cardiac/Chest: normal peripheral pulses, regular rate, rhythm Skin: normal color, warm/dry, No cyanosis, No diaphoresis Extremities: No pedal edema, No swelling Neuro/Psych: alert, normal mood/affect, No oriented x 3 (Oriented to self and place, but not date or season) ICD10 Worksheet Patient Problems: Problems Problem Status Onset Forehead laceration Acute Hydrocephalus Acute Subarachnoid hemorrhage Acute
[2017-07-16] MEDS: traZODone 50 MG TAB PO SCH (20:38)
[2017-07-17] MEDS: LEVOTHYROXINE 125 MCG TAB PO SCH (06:18)
[2017-07-17] MEDS: ACETAMINOPHEN 500 MG TAB PO SCH ×3 (06:19→21:00)
[2017-07-17] MEDS: HEPARIN 5,000 UNIT/0.5 ML SYR SC SCH ×2 (08:00→20:34)
[2017-07-17] MEDS: BETHANECHOL 10 MG TAB PO SCH ×4 (08:02→20:29)
[2017-07-17] MEDS: POLYETHYLENE GLYCOL 3350 17 GM PKT PO SCH (08:24)
[2017-07-17] MEDS: FERROUS SULFATE 325 MG TAB PO SCH (08:26)
[2017-07-17] MEDS: LISINOPRIL 20 MG TAB PO SCH (08:26)
[2017-07-17] MEDS: MULTIVITAMINS 1 EACH TAB PO SCH (08:26)
--- NOTE | 2017-07-17 15:14 | SOAPPROG ---
SOAP Progress Note Assessment/Plan: Assessment: * Debility following prolonged hospital course. * Initial functional independence measure 29 on 07/08/2017; improved to 35 as of 07/15/2017. Standby assist to contact guard assist for bed mobility. Transfers required minimal assist with no device. She ambulated 50-60 feet with a front wheeled walker and minimal assist due to cognitive impairment. Grooming and hygiene is done seated with minimal assist to standby assist. Lower body dressing requires cuing and moderate assist upper body dressing is much more automatic. Shower transfer requires minimal to moderate assistance. Bathing requires contact guard assist and cues. 2 person transfer for nursing and still with alarms and roll belt. * Improved participation and improved function. Upper body dressing standby assist and lower body moderate assist as of 07/12/2017 * Continue PT and OT to optimize mobility and ADLs toward the independent to modified independent level. * Cognitive impairment and mild dysphagia. Methylphenidate discontinued per Neurosurgery. * Severe global cognitive impairment impacts all other aspects of nursing and therapy. * Has had extensive evaluation including repeat head CTs and labs including RPR ; no improvement after large volume lumbar puncture. 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 Has adequate alertness so unlikely that a stimulant would help. * Calf tenderness and cyanotic feet. * No DVTs on bilateral lower extremity ultrasound. * May have cholesterol emboli from the catheterization procedure. Discussed with patient's son. * Labs ordered for 07/12/2017 regarding cyanosis of feet are unrevealing. * Hypertension, continue lisinopril. * Amlodipine added 07/11/2017 at 2.5 mg QD. * BP continues elevated. Is orthostatic but not symptomatic. Increased amlodipine to 5 mg q.day starting 07/15/2017. * Insomnia. D/C'd amitriptyline due to anticholinergic effects. * Sleep status variable with trazodone 50 mg at HS started 07/05/2017. * Increased to 100 mg at HS on 07/08/2017. Observe for over-sedation. * Agitation evening of 07/04/2017. Agitation has resolved. D/C monitoring of Agitated Behavior Scale 07/15/17. * Was refusing cares. Needed 1-1 monitoring. Eventually attained sleep. D/W Dr. Curry, Neurosurgery. D/C'd levetiracetam. * Nicotine replacement did not affect agitation. Discontinued 07/08/2017. * Weight loss. * Severe malnutrition per dietitian. Taking 75-100% of meals with a dysphagia 3 texture. * Initiate daily weights 07/11/2017. Gaining weight; up to 2.9 kg as of 2017.. * Decubitus ulcer. Healed, per nursing 07/15/2017. * Continue frequent turning, protective dressing, efforts at improving nutrition. * Anemia. Slightly worse on H/H 07/08/2017. * Reticulocyte count normal but would expected to be elevated. * B12 and folate normal in the hospital. Iron deficient on labs 07/09/2017, and iron supplement started. * Repeat CBC with improvement 07/12/2017. * Hypothyroidism with a TSH of 30 on 06/28/2017. Her thyroid dose has been adjusted, and she should have a recheck in mid to late July of her TSH. She may have a gradual improvement in her cognition due to optimizing her thyroid status. * Prevention of vasospasm after coil embolization. A 21-day course of nimodipine was completed 07/04/2017. Discussed with Neurosurgery. Discontinued nimodipine, 07/05/2017. * Urinary retention. Continue bethanechol. Not incontinent with timed toileting. Postvoid residual at 9 cc several days ago. Will decrease bethanechol from 20 mg four times daily to 10 mg four times daily starting 2017. * Prophylaxis. Continue heparin 5000 units b.i.d. as ordered out of the hospital as well as sequential compression devices on her legs at night, and she will be mobilized to the greatest extent possible. If her mobility can return toward normal, then the heparin can be discontinued. Followup: with neurosurgeon, Dr. Curry after discharge from [facility]patient [facility]. Difficult disposition at current level of function, with continuing need for alarms and roll belt. However she is improving. Tentative discharge date set for 07/24/2017, most likely to SNF, possibly for long-term care. 07/17/17 15:08 Subjective: No complaints today, but has increasing awareness that something has happened to her brain. Objective: Vital Signs Temp Pulse Resp BP Pulse Ox 37.2 C 72 16 158/87 H 93 07/17/17 07:29 07/17/17 07:50 07/17/17 07:29 07/17/17 07:50 07/17/17 07:29 Laboratory Results 07/12/17 13:34 07/12/17 13:34 07/16/17 07/17/17 07/18/17 05:59 05:59 05:59 Intake Total 1280 840 920 Output Total 600 750 500 Balance 680 90 420 PT 12.1 SEC (12.0-15.0) 07/12/17 13:34 INR 0.87 (0.83-1.16) 07/12/17 13:34 Physical Exam - Physical Exam General Appearance: WD/WN, alert, no apparent distress, thin Respiratory: normal breath sounds, No crackles, No rhonchi, No wheezing Cardiac/Chest: regular rate, rhythm, No diastolic murmur, No systolic murmur Skin: normal color, warm/dry Neuro/Psych: alert, normal mood/affect, abnormal gait (Ambulating with contact guard assist per Physical therapy, front wheeled walker, flexed posture, slow, wide base of support. Step through pattern.) ICD10 Worksheet Patient Problems: Problems Problem Status Onset Forehead laceration Acute Hydrocephalus Acute Subarachnoid hemorrhage Acute
[2017-07-17] MEDS: traZODone 50 MG TAB PO SCH (20:29)
[2017-07-18] MEDS: ACETAMINOPHEN 500 MG TAB PO SCH ×3 (05:17→21:42)
[2017-07-18] MEDS: LEVOTHYROXINE 125 MCG TAB PO SCH (05:17)
[2017-07-18] MEDS: MULTIVITAMINS 1 EACH TAB PO SCH (08:32)
[2017-07-18] MEDS: POLYETHYLENE GLYCOL 3350 17 GM PKT PO SCH (08:32)
[2017-07-18] MEDS: LISINOPRIL 20 MG TAB PO SCH (08:32)
[2017-07-18] MEDS: BETHANECHOL 10 MG TAB PO SCH ×4 (08:32→21:42)
[2017-07-18] MEDS: FERROUS SULFATE 325 MG TAB PO SCH (08:33)
[2017-07-18] MEDS: HEPARIN 5,000 UNIT/0.5 ML SYR SC SCH ×2 (09:27→21:42)
--- NOTE | 2017-07-18 09:47 | SOAPPROG ---
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 She endorses occasional difficulty with sleep but declines any sleep medications. Discussed the case with axel alvarez in social work and she will talk with her about nonpharmacologic strategies for sleep management. Blood pressure slightly elevated but not orthostatic, rechecking her weight given abnormalities. She is making slow but steady progress in rehabilitation, observed eating independently. Additional problem [place] including impairments in mobility and self-care, cognition, dysphagia, calf tenderness, hypertension, history of agitation, weight loss, pressure ulcer, anemia, hypothyroidism, and urinary retention were reviewed without changes today. Very difficult disposition at current level of function, with continuing need for alarms and roll belt. However she is improving. Tentative discharge date set for 07/24/2017, most likely to SNF, possibly for long-term care. 07/09/17 11:41 07/11/17 09:31 07/11/17 10:10 07/11/17 10:11 07/11/17 10:14 07/16/17 11:18 07/18/17 09:43 Subjective: Chief complaint: Poor sleep No acute events overnight. Patient denies any new shortness of breath or chest pain, no new numbness, tingling, or weakness. Patient notes that she has had some difficulty sleeping intermittently for years, does not want changes to medications. No particular issues keeping her up at night. She will discuss non pharmacologic sleep management strategies with social work. Objective: Vital Signs Temp Pulse Resp BP Pulse Ox 37.2 C 86 18 142/81 H 94 07/18/17 08:00 07/18/17 08:00 07/18/17 08:00 07/18/17 08:32 07/18/17 08:00 Laboratory Results 07/12/17 13:34 07/12/17 13:34 07/17/17 07/18/17 07/19/17 05:59 05:59 05:59 Intake Total 840 1220 Output Total 750 1100 Balance 90 120 PT 12.1 SEC (12.0-15.0) 07/12/17 13:34 INR 0.87 (0.83-1.16) 07/12/17 13:34 Physical Exam - Physical Exam General Appearance: alert, no apparent distress, No WD/WN (Thin) EENT: No scleral icterus (R), No scleral icterus (L) Respiratory: No respiratory distress, No accessory muscle use Cardiac/Chest: normal peripheral pulses, regular rate, rhythm, No edema Skin: normal color, warm/dry, No cyanosis, No diaphoresis Extremities: No pedal edema, No swelling Neuro/Psych: alert, normal mood/affect, No oriented x 3 (Only to self, unchanged ) ICD10 Worksheet Patient Problems: Problems Problem Status Onset Forehead laceration Acute Hydrocephalus Acute Subarachnoid hemorrhage Acute
[2017-07-18] MEDS: traZODone 50 MG TAB PO SCH (21:42)
[2017-07-19] MEDS: LEVOTHYROXINE 125 MCG TAB PO SCH (07:31)
[2017-07-19] MEDS: BETHANECHOL 10 MG TAB PO SCH ×4 (07:32→21:53)
[2017-07-19] MEDS: ACETAMINOPHEN 500 MG TAB PO SCH ×3 (07:32→21:51)
[2017-07-19] MEDS: POLYETHYLENE GLYCOL 3350 17 GM PKT PO SCH (08:32)
[2017-07-19] MEDS: FERROUS SULFATE 325 MG TAB PO SCH (08:33)
[2017-07-19] MEDS: LISINOPRIL 20 MG TAB PO SCH ×2 (08:33→21:52)
[2017-07-19] MEDS: MULTIVITAMINS 1 EACH TAB PO SCH (08:33)
[2017-07-19] MEDS: HEPARIN 5,000 UNIT/0.5 ML SYR SC SCH ×3 (08:33→21:51)
--- NOTE | 2017-07-19 14:55 | SOAPPROG ---
SOAP Progress Note Assessment/Plan: Assessment: * Debility following prolonged hospital course. * Initial functional independence measure 29 on 07/08/2017; improved to 35 as of 07/15/2017. Standby assist to contact guard assist for bed mobility. Transfers required minimal assist with no device. She ambulated 50-60 feet with a front wheeled walker and minimal assist due to cognitive impairment. Grooming and hygiene is done seated with minimal assist to standby assist. Lower body dressing requires cuing and moderate assist upper body dressing is much more automatic. Shower transfer requires minimal to moderate assistance. Bathing requires contact guard assist and cues. 2 person transfer for nursing and still with alarms and roll belt. * Improved participation and improved function. Upper body dressing standby assist and lower body moderate assist as of 07/12/2017 * Continue PT and OT to optimize mobility and ADLs toward the independent to modified independent level. * Cognitive impairment and mild dysphagia. Methylphenidate discontinued per Neurosurgery. * Severe global cognitive impairment impacts all other aspects of nursing and therapy. * Has had extensive evaluation including repeat head CTs and labs including RPR ; no improvement after large volume lumbar puncture. 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 Has adequate alertness so unlikely that a stimulant would help. * Calf tenderness and cyanotic feet. * No DVTs on bilateral lower extremity ultrasound. * May have cholesterol emboli from the catheterization procedure. Discussed with patient's son. * Labs ordered for 07/12/2017 regarding cyanosis of feet are unrevealing. * Hypertension, continue lisinopril. * Amlodipine added 07/11/2017 at 2.5 mg QD. * BP continues elevated. Is orthostatic but not symptomatic. Increased amlodipine to 5 mg q.day starting 07/15/2017. * CHange lisinopril from 20 mg QD to 20 mg BID starting 07/19/2017. * Insomnia. D/C'd amitriptyline due to anticholinergic effects. * Sleep status variable with trazodone 50 mg at HS started 07/05/2017. * Increased to 100 mg at HS on 07/08/2017. Observe for over-sedation. * Agitation evening of 07/04/2017. Agitation has resolved. D/C monitoring of Agitated Behavior Scale 07/15/17. * Was refusing cares. Needed 1-1 monitoring. Eventually attained sleep. D/W Dr. Curry, Neurosurgery. D/C'd levetiracetam. * Nicotine replacement did not affect agitation. Discontinued 07/08/2017. * Weight loss. * Severe malnutrition per dietitian. Taking 75-100% of meals with a dysphagia 3 texture. * Initiate daily weights 07/11/2017. Gaining weight; up to 2.9 kg as of 2017.. * Decubitus ulcer. Healed, per nursing 07/15/2017. * Continue frequent turning, protective dressing, efforts at improving nutrition. * Anemia. Slightly worse on H/H 07/08/2017. * Reticulocyte count normal but would expected to be elevated. * B12 and folate normal in the hospital. Iron deficient on labs 07/09/2017, and iron supplement started. * Repeat CBC with improvement 07/12/2017. * Hypothyroidism with a TSH of 30 on 06/28/2017. Her thyroid dose has been adjusted, and she should have a recheck in mid to late July of her TSH. She may have a gradual improvement in her cognition due to optimizing her thyroid status. * Prevention of vasospasm after coil embolization. A 21-day course of nimodipine was completed 07/04/2017. Discussed with Neurosurgery. Discontinued nimodipine, 07/05/2017. * Urinary retention. Continue bethanechol. Not incontinent with timed toileting. Postvoid residual at 9 cc several days ago. Decreased bethanechol from 20 mg four times daily to 10 mg four times daily starting 07/17/2017. Decreased further to 5 mg four times daily starting 07/19/2017. Discontinue if she continues to void normally. * Prophylaxis. Continue heparin 5000 units b.i.d. as ordered out of the hospital as well as sequential compression devices on her legs at night, and she will be mobilized to the greatest extent possible. If her mobility can return toward normal, then the heparin can be discontinued. Followup: with neurosurgeon, Dr. Curry after discharge from [facility]patient [facility]. Difficult disposition at current level of function, with continuing need for alarms and roll belt. However she is improving. Tentative discharge date set for 07/24/2017, most likely to SNF, possibly for long-term care. 07/19/17 14:51 Subjective: No complaints. Not in pain. No cough or dyspnea, no fevers or chills. Objective: Vital Signs Temp Pulse Resp BP Pulse Ox 37.0 C 77 16 157/88 H 96 07/19/17 07:09 07/19/17 07:29 07/19/17 07:09 07/19/17 07:29 07/19/17 07:09 Laboratory Results 07/12/17 13:34 07/12/17 13:34 07/18/17 07/19/17 07/20/17 05:59 05:59 05:59 Intake Total 1220 970 420 Output Total 1100 1750 576 Balance 120 -780 -156 PT 12.1 SEC (12.0-15.0) 07/12/17 13:34 INR 0.87 (0.83-1.16) 07/12/17 13:34 Physical Exam - Physical Exam General Appearance: WD/WN, alert, no apparent distress Respiratory: No respiratory distress, No accessory muscle use Skin: normal color, warm/dry Neuro/Psych: alert, normal mood/affect, other (Ambulates with more erect posture , longer step length, but still slow and with front wheeled walker. Able to arise from chair independently. Remains stimulus bound and distractible when ambulating.) ICD10 Worksheet Patient Problems: Problems Problem Status Onset Forehead laceration Acute Hydrocephalus Acute Subarachnoid hemorrhage Acute
[2017-07-19] MEDS: traZODone 50 MG TAB PO SCH (21:52)
[2017-07-20] MEDS: ACETAMINOPHEN 500 MG TAB PO SCH ×3 (05:57→22:13)
[2017-07-20] MEDS: LEVOTHYROXINE 125 MCG TAB PO SCH (05:57)
[2017-07-20] MEDS: POLYETHYLENE GLYCOL 3350 17 GM PKT PO SCH (10:31)
[2017-07-20] MEDS: FERROUS SULFATE 325 MG TAB PO SCH (10:31)
[2017-07-20] MEDS: BETHANECHOL 10 MG TAB PO SCH ×4 (10:31→22:14)
[2017-07-20] MEDS: MULTIVITAMINS 1 EACH TAB PO SCH (10:31)
[2017-07-20] MEDS: LISINOPRIL 20 MG TAB PO SCH ×2 (10:32→22:15)
[2017-07-20] MEDS: HEPARIN 5,000 UNIT/0.5 ML SYR SC SCH ×2 (10:32→22:15)
--- NOTE | 2017-07-20 14:11 | SOAPPROG ---
SOAP Progress Note Assessment/Plan: Assessment: 67 YO woman s/p ICH 2/2 cerebral Aneurysm * Debility following prolonged hospital course. * Initial functional independence measure 29 on 07/08/2017; improved to 35 as of 07/15/2017. Standby assist to contact guard assist for bed mobility. Transfers required minimal assist with no device. She ambulated 50-60 feet with a front wheeled walker and minimal assist due to cognitive impairment. Grooming and hygiene is done seated with minimal assist to standby assist. Lower body dressing requires cuing and moderate assist upper body dressing is much more automatic. Shower transfer requires minimal to moderate assistance. Bathing requires contact guard assist and cues. 2 person transfer for nursing and still with alarms and roll belt. * Improved participation and improved function. Upper body dressing standby assist and lower body moderate assist as of 07/12/2017 * Continue PT and OT to optimize mobility and ADLs toward the independent to modified independent level. * Cognitive impairment and mild dysphagia. Methylphenidate discontinued per Neurosurgery. * Severe global cognitive impairment impacts all other aspects of nursing and therapy. * Has had extensive evaluation including repeat head CTs and labs including RPR ; no improvement after large volume lumbar puncture. 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 Has adequate alertness so unlikely that a stimulant would help. * Calf tenderness and cyanotic feet. * No DVTs on bilateral lower extremity ultrasound. * May have cholesterol emboli from the catheterization procedure. Discussed with patient's son. * Labs ordered for 07/12/2017 regarding cyanosis of feet are unrevealing. * Hypertension, continue lisinopril. * Amlodipine added 07/11/2017 at 2.5 mg QD. * BP continues elevated. Is orthostatic but not symptomatic. Increased amlodipine to 5 mg q.day starting 07/15/2017. * CHange lisinopril from 20 mg QD to 20 mg BID starting 07/19/2017. * Insomnia. D/C'd amitriptyline due to anticholinergic effects. * Sleep status variable with trazodone 50 mg at HS started 07/05/2017. * Increased to 100 mg at HS on 07/08/2017. Observe for over-sedation. * Agitation evening of 07/04/2017. Agitation has resolved. D/C monitoring of Agitated Behavior Scale 07/15/17. * Was refusing cares. Needed 1-1 monitoring. Eventually attained sleep. D/W Dr. Curry, Neurosurgery. D/C'd levetiracetam. * Nicotine replacement did not affect agitation. Discontinued 07/08/2017. * Weight loss. * Severe malnutrition per dietitian. Taking 75-100% of meals with a dysphagia 3 texture. * Initiate daily weights 07/11/2017. Gaining weight; up to 2.9 kg as of 2017.. * Decubitus ulcer. Healed, per nursing 07/15/2017. * Continue frequent turning, protective dressing, efforts at improving nutrition. * Anemia. Slightly worse on H/H 07/08/2017. * Reticulocyte count normal but would expected to be elevated. * B12 and folate normal in the hospital. Iron deficient on labs 07/09/2017, and iron supplement started. * Repeat CBC with improvement 07/12/2017. * Hypothyroidism with a TSH of 30 on 06/28/2017. Her thyroid dose has been adjusted, and she should have a recheck in mid to late July of her TSH. She may have a gradual improvement in her cognition due to optimizing her thyroid status. * Prevention of vasospasm after coil embolization. A 21-day course of nimodipine was completed 07/04/2017. Discussed with Neurosurgery. Discontinued nimodipine, 07/05/2017. * Urinary retention. Continue bethanechol. Not incontinent with timed toileting. Postvoid residual at 9 cc several days ago. Decreased bethanechol from 20 mg four times daily to 10 mg four times daily starting 07/17/2017. Decreased further to 5 mg four times daily starting 07/19/2017. Discontinue if she continues to void normally. * Prophylaxis. Continue heparin 5000 units b.i.d. as ordered out of the hospital as well as sequential compression devices on her legs at night, and she will be mobilized to the greatest extent possible. If her mobility can return toward normal, then the heparin can be discontinued. Followup: with neurosurgeon, Dr. Curry after discharge from Inpatient Rehabilitation. Difficult disposition at current level of function, with continuing need for alarms and roll belt. However she is improving. Tentative discharge date set for 07/24/2017, most likely to SNF, possibly for long-term care. Plan: Cont Dr Duenas's rehab treatment plan 07/20/17 14:08 Subjective: Confused, pleasant No reported F/C/CP/SOB/N/V/D/C Objective: Vital Signs Temp Pulse Resp BP Pulse Ox 37.0 C 82 14 117/72 92 07/20/17 06:24 07/20/17 06:24 07/20/17 10:33 07/20/17 10:33 07/20/17 06:24 Laboratory Results 07/12/17 13:34 07/12/17 13:34 07/19/17 07/20/17 07/21/17 05:59 05:59 05:59 Intake Total 970 1240 300 Output Total 1750 1076 500 Balance -780 164 -200 PT 12.1 SEC (12.0-15.0) 07/12/17 13:34 INR 0.87 (0.83-1.16) 07/12/17 13:34 Physical Exam - Physical Exam General Appearance: alert, no apparent distress Neck: supple Respiratory: lungs clear Cardiac/Chest: regular rate, rhythm Skin: normal color Extremities: No pedal edema, No calf tenderness Neuro/Psych: alert, cognition abnormalities, other (no acute changes) ICD10 Worksheet Patient Problems: Problems Problem Status Onset Forehead laceration Acute Hydrocephalus Acute Subarachnoid hemorrhage Acute
[2017-07-20] MEDS: traZODone 50 MG TAB PO SCH (22:13)
[2017-07-21] MEDS: LEVOTHYROXINE 125 MCG TAB PO SCH (05:41)
[2017-07-21] MEDS: ACETAMINOPHEN 500 MG TAB PO SCH ×2 (05:42→14:07)
[2017-07-21] MEDS: BETHANECHOL 10 MG TAB PO SCH ×4 (06:41→19:15)
[2017-07-21] MEDS: POLYETHYLENE GLYCOL 3350 17 GM PKT PO SCH (09:09)
[2017-07-21] MEDS: LISINOPRIL 20 MG TAB PO SCH ×2 (09:10→19:16)
[2017-07-21] MEDS: MULTIVITAMINS 1 EACH TAB PO SCH (09:10)
[2017-07-21] MEDS: FERROUS SULFATE 325 MG TAB PO SCH (09:11)
[2017-07-21] MEDS: HEPARIN 5,000 UNIT/0.5 ML SYR SC SCH ×2 (09:13→19:18)
--- NOTE | 2017-07-21 11:41 | SOAPPROG ---
SOAP Progress Note Assessment/Plan: Assessment: 67 YO woman s/p ICH 2/2 cerebral Aneurysm * Debility following prolonged hospital course. * Initial functional independence measure 29 on 07/08/2017; improved to 35 as of 07/15/2017. Standby assist to contact guard assist for bed mobility. Transfers required minimal assist with no device. She ambulated 50-60 feet with a front wheeled walker and minimal assist due to cognitive impairment. Grooming and hygiene is done seated with minimal assist to standby assist. Lower body dressing requires cuing and moderate assist upper body dressing is much more automatic. Shower transfer requires minimal to moderate assistance. Bathing requires contact guard assist and cues. 2 person transfer for nursing and still with alarms and roll belt. * Improved participation and improved function. Upper body dressing standby assist and lower body moderate assist as of 07/12/2017 * Continue PT and OT to optimize mobility and ADLs toward the independent to modified independent level. * Cognitive impairment and mild dysphagia. Methylphenidate discontinued per Neurosurgery. * Severe global cognitive impairment impacts all other aspects of nursing and therapy. * Has had extensive evaluation including repeat head CTs and labs including RPR ; no improvement after large volume lumbar puncture. 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 Has adequate alertness so unlikely that a stimulant would help. * Calf tenderness and cyanotic feet. * No DVTs on bilateral lower extremity ultrasound. * May have cholesterol emboli from the catheterization procedure. Discussed with patient's son. * Labs ordered for 07/12/2017 regarding cyanosis of feet are unrevealing. * Hypertension, continue lisinopril. 156/80 this am, overall slightly improved since last med changes per Dr Duenas * Amlodipine added 07/11/2017 at 2.5 mg QD. * BP continues elevated. Is orthostatic but not symptomatic. Increased amlodipine to 5 mg q.day starting 07/15/2017. * CHange lisinopril from 20 mg QD to 20 mg BID starting 07/19/2017. * Insomnia. D/C'd amitriptyline due to anticholinergic effects. * Sleep status variable with trazodone 50 mg at HS started 07/05/2017. * Increased to 100 mg at HS on 07/08/2017. Observe for over-sedation. * Agitation evening of 07/04/2017. Agitation has resolved. D/C monitoring of Agitated Behavior Scale 07/15/17. * Was refusing cares. Needed 1-1 monitoring. Eventually attained sleep. D/W Dr. Curry, Neurosurgery. D/C'd levetiracetam. * Nicotine replacement did not affect agitation. Discontinued 07/08/2017. * Weight loss. * Severe malnutrition per dietitian. Taking 75-100% of meals with a dysphagia 3 texture. * Initiate daily weights 07/11/2017. Gaining weight; up to 2.9 kg as of 2017.. * Decubitus ulcer. Healed, per nursing 07/15/2017. * Continue frequent turning, protective dressing, efforts at improving nutrition. * Anemia. Slightly worse on H/H 07/08/2017. * Reticulocyte count normal but would expected to be elevated. * B12 and folate normal in the hospital. Iron deficient on labs 07/09/2017, and iron supplement started. * Repeat CBC with improvement 07/12/2017. * Hypothyroidism with a TSH of 30 on 06/28/2017. Her thyroid dose has been adjusted, and she should have a recheck in mid to late July of her TSH. She may have a gradual improvement in her cognition due to optimizing her thyroid status. * Prevention of vasospasm after coil embolization. A 21-day course of nimodipine was completed 07/04/2017. Discussed with Neurosurgery. Discontinued nimodipine, 07/05/2017. * Urinary retention. Continue bethanechol. Not incontinent with timed toileting. Postvoid residual at 9 cc several days ago. Decreased bethanechol from 20 mg four times daily to 10 mg four times daily starting 07/17/2017. Decreased further to 5 mg four times daily starting 07/19/2017. Discontinue if she continues to void normally. * Prophylaxis. Continue heparin 5000 units b.i.d. as ordered out of the hospital as well as sequential compression devices on her legs at night, and she will be mobilized to the greatest extent possible. If her mobility can return toward normal, then the heparin can be discontinued. Followup: with neurosurgeon, Dr. Curry after discharge from Inpatient Rehabilitation. Difficult disposition at current level of function, with continuing need for alarms and roll belt. However she is improving. Tentative discharge date set for 07/24/2017, most likely to SNF, possibly for long-term care. Plan: Cont Dr Duenas's rehab treatment plan 07/21/17 11:42 Subjective: Pleasantly confused cooperative and participatory in therapies No F/C/CP/SOB/N/V/D Objective: Vital Signs Temp Pulse Resp BP Pulse Ox 37.2 C 79 16 156/80 H 93 07/21/17 06:26 07/21/17 06:26 07/21/17 06:26 07/21/17 09:10 07/21/17 06:26 Laboratory Results 07/12/17 13:34 07/12/17 13:34 07/20/17 07/21/17 07/22/17 05:59 05:59 05:59 Intake Total 1240 1470 300 Output Total 1076 800 800 Balance 164 670 -500 PT 12.1 SEC (12.0-15.0) 07/12/17 13:34 INR 0.87 (0.83-1.16) 07/12/17 13:34 Physical Exam - Physical Exam General Appearance: alert, no apparent distress Neck: supple Respiratory: lungs clear Cardiac/Chest: regular rate, rhythm Skin: normal color, warm/dry Extremities: No pedal edema, No calf tenderness Neuro/Psych: alert, normal mood/affect, abnormal gait, motor weakness, sensory deficit, cognition abnormalities, other (no acute changes) ICD10 Worksheet Patient Problems: Problems Problem Status Onset Forehead laceration Acute Hydrocephalus Acute Subarachnoid hemorrhage Acute
[2017-07-21] MEDS: IBUPROFEN 200 MG TAB PO PRN (19:14)
[2017-07-21] MEDS: traZODone 50 MG TAB PO SCH (19:18)
[2017-07-22] MEDS: ACETAMINOPHEN 500 MG TAB PO SCH ×4 (00:32→22:25)
[2017-07-22] MEDS: LEVOTHYROXINE 125 MCG TAB PO SCH (04:23)
[2017-07-22] MEDS: MULTIVITAMINS 1 EACH TAB PO SCH (07:58)
[2017-07-22] MEDS: BETHANECHOL 10 MG TAB PO SCH ×2 (07:59→12:33)
[2017-07-22] MEDS: POLYETHYLENE GLYCOL 3350 17 GM PKT PO SCH (07:59)
[2017-07-22] MEDS: HEPARIN 5,000 UNIT/0.5 ML SYR SC SCH ×2 (07:59→20:04)
[2017-07-22] MEDS: LISINOPRIL 20 MG TAB PO SCH ×2 (08:00→20:04)
[2017-07-22] MEDS: FERROUS SULFATE 325 MG TAB PO SCH (08:01)
--- NOTE | 2017-07-22 15:17 | SOAPPROG ---
SOAP Progress Note Assessment/Plan: Assessment: * Debility following prolonged hospital course. * Initial functional independence measure 29 on 07/08/2017; improved to 44 as of 07/15/2017, and 57 as of 07/22/2017. Supervision for bed mobility but needs cues to initiate and persist. Ambulated 150 ft with minimal assist and front wheeled walker; has flexed posture due to back pain and noted to be stimulus bound. Climbed and descended 6 steps with bilateral rails and contact guard assist with cues. Upper body and lower body dressing are done with contact guard to minimal assist. Toilet transfer requires minimal assist. * Improved participation and improved function. Upper body dressing standby assist and lower body moderate assist as of 07/12/2017 * Continue PT and OT to optimize mobility and ADLs toward the independent to modified independent level. * Cognitive impairment and mild dysphagia. Methylphenidate discontinued per Neurosurgery. * Severe global cognitive impairment impacts all other aspects of nursing and therapy. * Has had extensive evaluation including repeat head CTs and labs including RPR ; no improvement after large volume lumbar puncture. 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 Has adequate alertness so unlikely that a stimulant would help. * Calf tenderness and cyanotic feet. * No DVTs on bilateral lower extremity ultrasound. * May have cholesterol emboli from the catheterization procedure. Discussed with patient's son. * Labs ordered for 07/12/2017 regarding cyanosis of feet are unrevealing. * Hypertension, continue lisinopril. * Amlodipine added 07/11/2017 at 2.5 mg QD. * BP continues elevated. Is orthostatic but not symptomatic. Increased amlodipine to 5 mg q.day starting 07/15/2017. * Changed lisinopril from 20 mg QD to 20 mg BID starting 07/19/2017. * Insomnia. D/C'd amitriptyline due to anticholinergic effects. * Sleep status variable with trazodone 50 mg at HS started 07/05/2017. * Increased to 100 mg at HS on 07/08/2017. Observe for over-sedation. * Agitation evening of 07/04/2017. Agitation has resolved. D/C monitoring of Agitated Behavior Scale 07/15/17. * Was refusing cares. Needed 1-1 monitoring. Eventually attained sleep. D/W Dr. Curry, Neurosurgery. D/C'd levetiracetam. * Nicotine replacement did not affect agitation. Discontinued 07/08/2017. * Weight loss. * Severe malnutrition per dietitian. Taking 75-100% of meals with a dysphagia 3 texture. * Initiate daily weights 07/11/2017. Gaining weight; up to 2.9 kg as of 2017.. * Decubitus ulcer. Healed, per nursing 07/15/2017. * Continue frequent turning, protective dressing, efforts at improving nutrition. * Anemia. Slightly worse on H/H 07/08/2017. * Reticulocyte count normal but would expected to be elevated. * B12 and folate normal in the hospital. Iron deficient on labs 07/09/2017, and iron supplement started. * Repeat CBC with improvement 07/12/2017. * Hypothyroidism with a TSH of 30 on 06/28/2017. Her thyroid dose has been adjusted, and she should have a recheck in mid to late July of her TSH. She may have a gradual improvement in her cognition due to optimizing her thyroid status. * Prevention of vasospasm after coil embolization. A 21-day course of nimodipine was completed 07/04/2017. Discussed with Neurosurgery. Discontinued nimodipine, 07/05/2017. * Urinary retention. Continue bethanechol. Not incontinent with timed toileting. Postvoid residual at 9 cc several days ago. Decreased bethanechol from 20 mg four times daily to 10 mg four times daily starting 07/17/2017. Decreased further to 5 mg four times daily starting 07/19/2017. No voiding difficulty and has urinary incontinence at night. Discontinued bethanechol 2017. * Prophylaxis. Continue heparin 5000 units b.i.d. as ordered out of the hospital as well as sequential compression devices on her legs at night, and she will be mobilized to the greatest extent possible. If her mobility can return toward normal, then the heparin can be discontinued. Followup: with neurosurgeon, Dr. Curry after discharge from Inpatient Rehabilitation. Attended staffing, 15 min. Discussed with case management, dietitian, nursing, PT, OT, POWER REACTOR SUPERVISOR. Needing 24 hr supervision for safety. Too great a burden of care for return home with . Planning for SNF discharge on 07/24/2017.. 07/22/17 15:18 Subjective: No complaints. Sleeping well, not in pain. No cough or dyspnea, no fevers or chills. Objective: Vital Signs Temp Pulse Resp BP Pulse Ox 37.4 C 88 16 153/81 H 93 07/22/17 06:27 07/22/17 06:27 07/22/17 06:27 07/22/17 08:00 07/22/17 06:27 Laboratory Results 07/12/17 13:34 07/12/17 13:34 07/21/17 07/22/17 07/23/17 05:59 05:59 05:59 Intake Total 1470 1663 720 Output Total 800 1750 1200 Balance 670 -87 -480 PT 12.1 SEC (12.0-15.0) 07/12/17 13:34 INR 0.87 (0.83-1.16) 07/12/17 13:34 - Time Spent With Patient Time Spent With Patient: Greater than 35 min floor time today, including more than 50% of time in coordination of care during staffing meeting, and counseling patient. Physical Exam - Physical Exam General Appearance: WD/WN, alert, no apparent distress, thin Respiratory: normal breath sounds, No crackles, No rhonchi, No wheezing Cardiac/Chest: regular rate, rhythm, edema (Trace right lower extremity), No diastolic murmur, No systolic murmur Skin: normal color, warm/dry Neuro/Psych: alert, normal mood/affect, other (Vague responses to questions and fails to complete sentences.) ICD10 Worksheet Patient Problems: Problems Problem Status Onset Forehead laceration Acute Hydrocephalus Acute Subarachnoid hemorrhage Acute
[2017-07-22] MEDS: IBUPROFEN 200 MG TAB PO PRN (20:03)
[2017-07-22] MEDS: traZODone 50 MG TAB PO SCH (20:03)
--- NOTE | 2017-07-22 21:41 | PDOREHIP ---
Admission [facility] - Admission - 3 Day Assessment Period Admission Date/Day 1: 07/04/17 Day 2: 07/05/17 Day 3: 07/06/17 Discharge [facility] - Discharge - 3 Day Assessment Period 2 Days Prior to Anticipated Discharge Date: 07/22/17 1 Day Prior to Anticipated Discharge Date: 07/23/17 Anticipated Discharge Date: 07/24/17 - Healed Pressure Ulcer(s) # Stage 2 Pressure Ulcers Present on Admit and Healed on DC: 1 (Coccyx)
[2017-07-23] MEDS: ACETAMINOPHEN 500 MG TAB PO SCH (05:55)
[2017-07-23] MEDS: LEVOTHYROXINE 125 MCG TAB PO SCH (05:55)
[2017-07-23] MEDS: POLYETHYLENE GLYCOL 3350 17 GM PKT PO SCH (09:43)
[2017-07-23] MEDS: FERROUS SULFATE 325 MG TAB PO SCH (09:47)
[2017-07-23] MEDS: LISINOPRIL 20 MG TAB PO SCH (09:47)
[2017-07-23 09:49] VITALS: BP 126/94
[2017-07-23] MEDS: HEPARIN 5,000 UNIT/0.5 ML SYR SC SCH (09:49)
[2017-07-23] MEDS: MULTIVITAMINS 1 EACH TAB PO SCH (09:51)
--- NOTE | 2017-07-23 11:28 | PDDCSUM ---
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 Finn Duenas on 07/04/2017 for full details. Briefly, on 06/12/2017 the patient was initially diagnosed with a subarachnoid hemorrhage due to a ruptured anterior communicating artery aneurysm at [facility]. She had coil embolization of the aneurysm at [facility] with a complicated acute medical course. She was admitted to inpatient rehabilitation on 06/25/2017, and made poor progress in inpatient rehab that concluded with a fall with a strike to her head, and she was sent back to the emergency department. Additional workup was performed to try to identify the reason she was having poor progress. Workup was relatively unremarkable, she was stabilized from a medical standpoint and was readmitted to inpatient rehabilitation on 07/04/2017 to continue therapies with the goal to discharge home. Rehabilitation course: Her rehabilitation course was relatively slow, complicated by significant cognitive impairment. Methylphenidate that was originally helpful for her cognition was discontinued per Neurosurgery, and not restarted on inpatient rehabilitation. On discharge, she was still needing significant supervision and assistance for ambulation. She had significant cognitive impairments though these were improving. It was felt that her care needs were too great for her to go home with her and she ultimately is being discharged to prison facility for ongoing lower intensity therapy for a longer period of time. Regarding her medical issues, she did have some calf tenderness and cyanotic feet throughout her course with no DVTs found on bilateral lower extremity ultrasound and it was felt by Dr. Duenas that she may have cholesterol emboli from the catheterization process. Hypertension was controlled with amlodipine and lisinopril. Sleep was improved with trazodone at 100 mg at night. She had 1 episode of agitation that resolved. She was gaining weight appropriately throughout her course. Her pressure ulcer healed. She was started on oral iron supplementation for relatively low reticulocyte count in the setting of anemia, shown to be iron deficient on labs. She completed a 21 day course of pneumonia pain for prevention of vasospasm. Urinary retention was treated with bethanechol but was ultimately discontinued. Discharge plan: To prison facility for further rehabilitation comma regular diet and thin liquids, requiring assistance with ADLs and mobility Medications at discharge: Amlodipine 5 mg orally daily Ferrous sulfate 325 mg orally daily Ibuprofen 400 mg orally every 6 hr as needed for pain Levothyroxine 125 mcg orally at 6:00 a.m. Trazodone 100 mg orally at bedtime Lisinopril 20 mg orally twice daily Heparin 5000 units subcutaneously twice daily Refresh drops 1 drop each eye as needed for dry eyes MiraLax 17 g orally daily Acetaminophen 650 mg orally every 4 hr as needed for pain Multivitamin 1 each orally daily Pending studies: None Follow up: Follow up with primary care at the prison facility, follow up with Dr. Curry after discharge from inpatient rehabilitation I saw the patient on the day of discharge, today, and she did not have any particular concerns. I counseled her that this is the next step in her rehabilitation process and she will continue to get lower level of therapy for longer. She was disappointed as she wanted to go home but understood. On exam , she is in no apparent distress, eyes were anicteric, she was alert and oriented to self and place but not date, pulses were full and regular at her wrists, she had no difficulty breathing on room air. Vital signs were reviewed and relatively normal. Skin showed no rashes or skin breakdown.
== END 2017-07-23 14:02 | DRG 57 ==
LOC: BREH 14:12
PROVIDERS: ADMIT Internal Medicine; ATTEND Internal Medicine
DX: I69.098 Other sequelae following nontraumatic subarachnoid hemorrhage (principal); R53.81 Other malaise; G31.84 Mild cognitive impairment of uncertain or unknown etiology; I69.091 Dysphagia following nontraumatic subarachnoid hemorrhage; E03.9 Hypothyroidism, unspecified; L89.159 Pressure ulcer of sacral region, unspecified stage; I10 Essential (primary) hypertension; R31.9 Hematuria, unspecified; R33.9 Retention of urine, unspecified; D64.9 Anemia, unspecified; G47.00 Insomnia, unspecified; R23.0 Cyanosis; R63.4 Abnormal weight loss
CPT/HCPCS: 92507-GN; 92522-GN; 92526-GN; 92610-GN; 97110-GO; 97110-GP; 97112-GP; 97116-GP; 97161-GP; 97167-GO; 97530-GO; 97530-GP; 97535-GO; G0009; G0515-GO; J1644

== ENCOUNTER → 2017-11-19 | Outpatient (CLI) | payer OTHER ==
[~2017-11-19] MED LIST: GADOBUTROL 10 ML VIAL IVP ONE
== END ==
LOC: FIMAGING 13:00
PROVIDERS: ATTEND Neurological Surgery
DX: I60.6 Nontraumatic subarachnoid hemorrhage from other intracranial arteries (principal); I72.0 Aneurysm of carotid artery; G31.9 Degenerative disease of nervous system, unspecified; G93.89 Other specified disorders of brain
CPT/HCPCS: 70544; 70553; A9585; 82565-PO